=== PATIENT | female | born 1935 | race Caucasian/White ===

== ENCOUNTER 2018-05-15 13:33 | Outpatient (CLI) | payer MEDICARE, BC | END 2018-05-15 13:34 | disposition home or self-care (01) | LOC: BICMAMMO 13:33 | PROVIDERS: ATTEND Family Medicine | DX: Z12.31 Encounter for screening mammogram for malignant neoplasm of breast (principal); Z80.3 Family history of malignant neoplasm of breast; Z85.3 Personal history of malignant neoplasm of breast | CPT/HCPCS: 77063; 77067 ==

== ENCOUNTER 2018-12-23 20:49 | Inpatient (IN) | payer MEDICARE, BC ==
[2018-12-23 21:19] LABS: #Eosinphils 0.3 thou/uL (0.0-0.7); #Lymphocytes 2.7 thou/uL (1.20-3.40); #Monocytes 0.7 thou/uL (0.11-0.59); #Neutrophils 5.2 thou/uL (1.40-6.50); %Basophils 0.4 % (0.0-1.0); %Eosinophils 3.1 % (0.0-10.0); %Lymphocytes 30.5 % (21.0-51.0); %Monocytes 8.2 % (0.0-10.0); %Neutrophils 57.9 % (42.0-75.0); Mean Corpuscular HGB CONC 32.6 g/dL (32.0-36.0); Mean Corpuscular Hemoglobin 31.3 pg (27.0-31.0); Mean Corpuscular Volume 95.9 fL (78.0-98.0); Mean Platelet Volume 7.9 fL (7.4-10.4); Platelet Count 321 thou/uL (130-400); RBC Distribution Width 13.8 % (11.5-14.5); Red Blood Cell (RBC) Count 3.51 mill/uL (4.20-5.40)
[2018-12-23 21:37] LABS: ALT (SGPT) 9 U/L (8-55); AST (SGOT) 13 U/L (5-34); Albumin 4.5 g/dL (3.4-4.8); Alkaline Phosphatase 65 U/L (40-150); Anion Gap 16 mmol/L (10-20); BUN (Urea Nitrogen) 24 mg/dL (9.8-20.1); Bilirubin, Total 0.3 mg/dL (0.2-1.2); Calc. Creatinine Clearance 0 mL/min (70-130); Calcium 9.7 mg/dL (7.8-10.44); Carbon Dioxide 22 mmol/L (23-31); Chloride 105 mmol/L (98-107); Estimated GFR-MDRD 40; Globulin 3.2 g/dL (2.4-3.5); Glucose 106 mg/dL (83-110); Potassium 3.9 mmol/L (3.5-5.1); Protein, Total 7.7 g/dL (6.0-8.3); Sodium 139 mmol/L (136-145)
--- NOTE | 2018-12-23 21:48 | RAD ---
CHEST ONE VIEW: 12/23/18 INDICATION: History of chest pain. COMPARISON: Prior exam dated 07/09/14. FINDINGS: The soft tissue accentuation along the right heart border is stable. Myocardium is stable. Vascular c alcifications of the aortic arch is similar appearing. Eventration of the right hemidiaphragm is stab le. No pleural effusion or pneumothorax is evident. Surgical changes involving the left axillary joni on are stable. IMPRESSION: No acute cardiopulmonary abnormality. Stable chronic findings as above. POS: VANESSA
[2018-12-23] MEDS ORDERED: Aspirin Chewable 81 MG TAB ONE (22:02)
[2018-12-23] MEDS ORDERED: Nitroglycerin 2% Ointment 1 INCH/1 GM Packet ONE (22:02)
[2018-12-24 00:49] LABS: Troponin I 0.011 ng/mL (< 0.028)
[2018-12-24] MEDS ORDERED: Ondansetron ODT 4 MG TAB PO PRN (02:19)
[2018-12-24] MEDS ORDERED: Ondansetron PF 4 MG/2 ML Vial IVP PRN (02:19)
[2018-12-24] MEDS ORDERED: Acetaminophen 325 MG TAB PO PRN (02:19)
[2018-12-24] MEDS ORDERED: Sodium Chloride 0.9% (PF) 10 ML VIAL FS PRN (02:34)
[2018-12-24 02:42] VITALS: BMI 33.7
[2018-12-24] MEDS ORDERED: Pantoprazole 40 MG VIAL IVP SCH (02:45)
[2018-12-24 03:25] LABS: #Basophils 0.1 thou/uL (0.0-0.2); #Eosinphils 0.2 thou/uL (0.0-0.7); #Lymphocytes 2.5 thou/uL (1.20-3.40); #Monocytes 0.5 thou/uL (0.11-0.59); #Neutrophils 3.5 thou/uL (1.40-6.50); %Basophils 1.2 % (0.0-1.0); %Eosinophils 3.2 % (0.0-10.0); %Monocytes 7.9 % (0.0-10.0); %Neutrophils 50.7 % (42.0-75.0); Hemoglobin 9.5 g/dL (12.0-16.0); Mean Corpuscular HGB CONC 32.3 g/dL (32.0-36.0); Mean Corpuscular Hemoglobin 31.6 pg (27.0-31.0); Mean Corpuscular Volume 97.7 fL (78.0-98.0); Platelet Count 260 thou/uL (130-400); White Blood Cell (WBC) Count 6.8 thou/uL (4.8-10.8)
[2018-12-24] MEDS ORDERED: Gabapentin 300 MG CAP PO SCH (03:30)
[2018-12-24] MEDS ORDERED: DULoxetine 30 MG CAP PO SCH (03:30)
[2018-12-24 03:46] LABS: Anion Gap 13 mmol/L (10-20); BUN (Urea Nitrogen) 21 mg/dL (9.8-20.1); Calc. Creatinine Clearance 50 mL/min (70-130); Carbon Dioxide 24 mmol/L (23-31); Chloride 107 mmol/L (98-107); Estimated GFR-MDRD 48; Glucose 107 mg/dL (83-110); Potassium 3.7 mmol/L (3.5-5.1); Sodium 140 mmol/L (136-145)
[2018-12-24 03:51] LABS: Troponin I 0.012 ng/mL (< 0.028)
--- NOTE | 2018-12-24 04:04 | HP ---
PRIMARY CARE PHYSICIAN: Dr. Wells. CHIEF COMPLAINT: Substernal chest pain. HISTORY OF PRESENT ILLNESS: Ms. Buck is a pleasant 82-year-old female with past medical history of hypertension; gastroesophageal reflux disease; and history of breast cancer, status post lumpectomy, chemo, and radiation, she had reported to [facility] for chest pain and nausea that started earlier on today, she states she had some nausea and some dyspnea on exertion yesterday; however, the nausea resolved today. She states this pain is worse after meals and worse with swallowing, she states that she used to take Prilosec in the past, however, was told by her PCP to stop this, she had switched to Zantac and was using this as needed, however, has not taken anything for her GERD in quite some time. She denied any fever or chills. She denied any headache, dizziness, or blurred vision. She had denied any abdominal pain, any weakness, numbness, tingling, or any edema. She was given aspirin and nitroglycerin down in the emergency department, which she had denied any improvement in her symptoms. During her initial workup, serial troponins were found to be negative x2. Chest x-ray showed no acute cardiopulmonary abnormality. Creatinine was slightly elevated at 1.28, which has been noted to be elevated in the past as high as 1.55 back in 2013. Her estimated GFR was 40, which being back at her old records, seems to be about her baseline with CKD, stage 3. EKG showed normal sinus rhythm with a left bundle branch block, she has denied any history of this in the past. She states she had parathyroidectomy in last June, and she states that she thought she got an EKG back then, however, no one mentioned anything about a left bundle branch block to her. It was determined that she would be admitted under observation for further workup and undergo trending of her troponin and rule out cardiac etiology. REVIEW OF SYSTEMS: All other systems reviewed and found to be negative unless mentioned in the HPI. PAST MEDICAL HISTORY: Hypertension; gastroesophageal reflux disease; history of breast cancer, status post lumpectomy, chemo, and radiation; CKD, stage 3; and COPD. PAST SURGICAL HISTORY: Back surgery, ORIF of right humerus, lumpectomy, surgical repair of hernia, parathyroidectomy, appendectomy, and left partial knee replacement. PSYCHIATRIC HISTORY: Denies any previous psychiatric history at this time. SOCIAL HISTORY: She is a former smoker, however, quit about 10 years ago, she denies any alcohol use or any illicit drug use. KNOWN ALLERGIES: None. CURRENT HOME MEDICATIONS: 1. Amlodipine 10 mg p.o. at bedtime. 2. Simvastatin 10 mg p.o. at bedtime. 3. Atenolol 10 mg p.o. q.p.m. 4. Gabapentin 300 mg p.o. b.i.d. 5. Duloxetine 30 mg p.o. b.i.d. 6. Aspirin 81 mg p.o. daily. 7. Hydrocodone/acetaminophen 5/325 mg p.o. q.6 hours as needed for pain. PHYSICAL EXAMINATION: VITAL SIGNS: BP 137/74, pulse 63, respirations 16, temperature 98.3 degrees Fahrenheit, and O2 saturations 94% on room air. GENERAL: The patient is awake, alert, and oriented x3. No acute distress noted. HEENT: Atraumatic, normocephalic. Pupils are round and reactive to light. Extraocular muscles are intact. Moist mucous membranes noted. NECK: No JVD. No bruit. Supple. Normal range of motion. CARDIOVASCULAR: Positive S1 and S2. Regular rate and rhythm. No murmurs or rubs auscultated. RESPIRATORY: Clear to auscultation bilaterally. No wheezes, rales, or rhonchi. ABDOMEN: Soft and nontender. Bowel sounds present. Nondistended. BACK: Nontender. No CVA tenderness. Normal range of motion. MUSCULOSKELETAL: Strength 5+ bilaterally in upper and lower extremities. Moves all extremities equally. No edema noted. NEUROLOGICAL: Cranial nerves 2 through 12 are grossly intact. No focal deficits noted. Gait not assessed. SKIN: Warm, dry, and intact. No rashes. No lesions noted. PSYCHIATRIC: Good mood and affect. LABORATORY DATA: WBC 9.0, RBC 3.51, hemoglobin 11.0, and platelets 321. Sodium 139, potassium 3.9, anion gap 16, BUN 24, creatinine 1.28, estimated GFR 40, and glucose 103. Troponin 0.014 and 0.011. DIAGNOSTIC IMAGING: Chest x-ray showed no acute cardiopulmonary abnormality. EKG showed normal sinus rhythm at a rate of 89. It did show complete left bundle branch block with left axis. ASSESSMENT/PLAN: 1. Substernal chest pain, this is likely secondary to gastroesophageal reflux disease. However, we will rule out cardiac etiology by trending troponins, so far negative x2. We will order stress test and echocardiogram for the morning. Continue on home medications and start IV Protonix 40 mg daily. 2. Gastroesophageal reflux disease. Continue on IV Protonix 40 mg daily. 3. Hypertension. Continue the patient's home regimen. 4. Chronic kidney disease, stage 3, currently stable at this time, recheck BMP in the morning. 5. Chronic obstructive pulmonary disease, currently stable at this time. 6. Deep venous thrombosis and gastrointestinal prophylaxis. 7. Code status, full code. DISPOSITION: Pending further workup and clinical findings. Job ID: [id number]
[2018-12-24] MEDS: HYDROcodone/Acetaminophen 5/325 mg Tablet PO SCH ×4 (07:32→20:06)
[2018-12-24] MEDS ORDERED: Enoxaparin Sodium 30 MG/0.3 ML SYRINGE SC SCH (09:00)
[2018-12-24] MEDS ORDERED: ADENOSINE 60 MG/20 ML VIAL ONE (09:38)
--- NOTE | 2018-12-24 12:29 | PDOC.PN ---
- Subjective Encounter Start Date: 12/24/18 Encounter Start Time: 08:45 Subjective: no current chest pain -: has chest pain and sob x 1 yr with min exertion -: above is progressively getting worse per patient - Objective Resuscitation Status - Order Detail: 12/24/18 02:19 Resuscitation Status Routine Co-Sign Provider: Resuscitation Status: FULL: Full Resuscitation MAR Reviewed: Yes Vital Signs & Weight: Vital Signs (12 hours) Temp Pulse Resp BP BP Pulse Ox 12/24/18 07:10 98 F 70 18 115/73 115/73 98 12/24/18 04:00 97.6 F 73 18 128/60 96 12/24/18 01:15 97.5 F L 78 16 158/74 H 96 Weight Weight 172 lb 9.6 oz I&O: 12/23/18 12/24/18 12/25/18 06:59 06:59 06:59 Intake Total 240 Balance 240 Result Diagrams: 12/24/18 03:17 12/24/18 03:17 Additional Labs: Accuchecks 12/24/18 12/24/18 06:19 02:18 POC Glucose 107 103 Phys Exam - Physical Examination HEENT: PERRLA, moist MMs Neck: no JVD, supple Respiratory: no wheezing, no rales, no rhonchi Cardiovascular: RRR, no significant murmur Gastrointestinal: soft, non-tender, positive bowel sounds Musculoskeletal: no edema, pulses present Neurological: non-focal, moves all 4 limbs Psychiatric: normal affect, A&O x 3 Dx/Plan (1) Chest pain Code(s): R07.9 - CHEST PAIN, UNSPECIFIED Status: Acute Qualifiers: Chest pain type: unspecified Qualified Code(s): R07.9 - Chest pain, unspecified (2) Obesity (BMI 30.0-34.9) Code(s): E66.9 - OBESITY, UNSPECIFIED Status: Chronic (3) Dyslipidemia Code(s): E78.5 - HYPERLIPIDEMIA, UNSPECIFIED Status: Chronic (4) Chronic obstructive lung disease Status: Chronic Qualifiers: COPD type: chronic bronchitis Chronic bronchitis type: unspecified Qualified Code(s): J42 - Unspecified chronic bronchitis (5) Hypertension Code(s): I10 - ESSENTIAL (PRIMARY) HYPERTENSION Status: Chronic Qualifiers: Hypertension type: essential hypertension Qualified Code(s): I10 - Essential (primary) hypertension - Plan progressive worsoning of chest pain and sob on min exertion -: has lbbb which was not seen on prior ekg -: stress test, cardio consult, echo for wall motion -: has h/o snoring but no recorded apnea per family -: will need outpt sleep study * . continue asp, lipitor, norvasc, atenolol, neurontin, cymbalta. Prior h/o 1 of 4 parathyroid gland removed, calcium is normal. Review of Systems - Medications/Allergies Allergies/Adverse Reactions: Allergies Allergy/AdvReac Type Severity Reaction Status Date / Time No Known Allergies Allergy Verified 12/24/18 02:28 Medications: Current Medications Acetaminophen (Tylenol) 650 mg PO Q4H PRN PRN Reason: Headache/Fever/Mild Pain (1-3) Hydrocodone Bitart/Acetaminophen ([place] 5/325) 1 tab PO Q6HR [facility] Last Admin: 12/24/18 07:32 Dose: Not Given Amlodipine Besylate (Norvasc) 10 mg PO HS [facility] Aspirin (Aspirin Chewable) 81 mg PO QAM-[facility] Atenolol (Tenormin) 100 mg PO QPM [facility] Atorvastatin Calcium (Lipitor) 10 mg PO HS [facility] Duloxetine HCl (Cymbalta) 30 mg PO BID [facility] Enoxaparin Sodium (Lovenox) 30 mg SC 0900 [facility] Gabapentin (Neurontin) 300 mg PO BID [facility] Ondansetron HCl (Zofran Odt) 4 mg PO Q6H PRN PRN Reason: Nausea/Vomiting Ondansetron HCl (Zofran) 4 mg IVP Q6H PRN PRN Reason: Nausea/Vomiting Pantoprazole Sodium (Protonix) 40 mg IVP DAILY [facility] Sodium Chloride (Normal Saline Pf) 10 ml FS PRN PRN PRN Reason: RECONSTITUTION
--- NOTE | 2018-12-24 14:32 | NM ---
RADIONUCLIDE STRESS AND REST MYOCARDIAL PERFUSION SCAN WITH CT ATTENUATION CORRECTION AND SPECT IMAGI NG WITH LEFT VENTRICULAR WALL MOTION EVALUATION AND EJECTION FRACTION: HISTORY: Chest pain. FINDINGS: Adenosine protocol. A moderate sized area of markedly diminished radiotracer uptake involving the ant eroseptal wall is present on the stress and rest images without significant reversibility. QGS analysis of gated SPECT images shows global hypokinesis, most pronounced at the septum. Ejection fraction calculated at 37%. IMPRESSION: 1. Area of scar involving the anteroseptal wall with decreased motion. No evidence of ongoing ischem ia. 2. Depressed ejection fraction of 37%. POS: TITO
[2018-12-24] MEDS: Aspirin Chewable 81 MG TAB PO SCH (14:43)
[2018-12-24] MEDS: DULoxetine 30 MG CAP PO SCH ×2 (14:43→20:05)
[2018-12-24] MEDS: Gabapentin 300 MG CAP PO SCH ×2 (14:43→20:07)
[2018-12-24] MEDS: Pantoprazole 40 MG VIAL IVP SCH (14:44)
[2018-12-24] MEDS ORDERED: glipiZIDE 5 MG TAB PO SCH (17:00)
--- NOTE | 2018-12-24 18:22 | CON ---
DATE OF CONSULTATION: 12/24/2018 REASON FOR CONSULTATION: Chest pain. HISTORY OF PRESENT ILLNESS: Ms. Bukc is a very pleasant 82-year-old white female, who comes to the hospital for shortness of breath. She has noticed increased worsening shortness of breath for the last year to the point where she feels weak all the time. She started having worsening of her reflux. She got concerned that this might be related to her heart, so she decided to come in for evaluation. She was initially found to have a new left bundle-branch block. This is compared to 2013 EKG. She was admitted for further evaluation. Troponins were negative. A stress test was performed and it showed reduced EF with possible anterior scar, EF was at 37%. On the echocardiogram, EF was at 30% to 35% with septal hypokinesis and mild aortic regurgitation, so Cardiology has been consulted for all of these. PAST MEDICAL HISTORY: 1. Hypertension. 2. GERD. 3. Breast cancer, status post lumpectomy and chemo and radiation. 4. Chronic kidney disease, stage 3. 5. COPD. 6. Pericardial cyst. PAST SURGICAL HISTORY: 1. Back surgery by Dr. Parra. 2. ORIF of the right humerus. 3. Lumpectomy. 4. Hernia repair. 5. Parathyroidectomy. 6. Appendectomy. 7. Left partial knee replacement. SOCIAL HISTORY: Former smoker, quit about 10 years ago. No alcohol or drugs. ALLERGIES: NO KNOWN DRUG ALLERGIES. OUTPATIENT MEDICATIONS: 1. Amlodipine 10 mg at bedtime. 2. Simvastatin 10 mg at bedtime. 3. Tylenol 100 mg q.p.m. 4. Gabapentin 300 mg p.o. b.i.d. 5. Duloxetine 30 mg b.i.d. 6. Aspirin 81 a day. 7. [place] 5/325 p.r.n. pain. REVIEW OF SYSTEMS: A 12-point review of systems was done and was found to be negative unless stated in the history of present illness. PHYSICAL EXAMINATION: VITAL SIGNS: Temperature 98.0, pulse 92, respiratory rate 18, sat 94% on room air, and blood pressure 131/64. GENERAL: Awake, alert, and oriented x3. No distress. HEENT: Normocephalic and atraumatic. NECK: Supple. LUNGS: Lungs have mild crackles at the bases. CARDIOVASCULAR: S1 and S2. No S3 or S4. There is a grade 2/6 systolic murmur at the right upper sternal border. ABDOMEN: Soft. Positive bowel sounds. EXTREMITIES: No edema. SKIN: Warm and dry. LABORATORY DATA: Laboratory work was reviewed. CBC with a white count of 9, hemoglobin of 11, hematocrit of 33, and platelet count of 321. Chemistry was unremarkable. BUN and creatinine are 21 and 1.09. GFR was 48. Troponin was negative x3. Echocardiogram was reviewed, EF at 30% to 35%, grade 1 diastolic dysfunction, septal hypokinesis, dilated left ventricle and mild AI. Nuclear stress test showed an EF of 37% with anteroseptal scar. ASSESSMENT: 1. New-onset left bundle-branch block. 2. New-onset dilated cardiomyopathy, ejection fraction at 30% to 35%. 3. Hypertension. PLAN: 1. Certainly, we will have to risk stratify with heart catheterization to evaluate for ischemia. We spoke at length with the risks and benefits of the procedure. Risks included, but not limited to stroke, [place], , bleeding, need for blood transfusion, limb loss, organ loss. The patient understands and verbalized understanding of this. We spoke about drug-eluting stent versus bare metal stent. She chooses drug-eluting stent. She is aware that she will not be able to get her back shots for pain control during the years that she is on dual anti-platelet therapy and she is okay to proceed. 2. Further recommendations per results of coronary angiogram. We will plan on doing this early in the morning tomorrow. Job ID: [id number]
[2018-12-24] MEDS ORDERED: Communication Order-Pharmacy FS SCH (19:45)
[2018-12-24] MEDS: Atorvastatin Calcium 10 MG TAB PO SCH (20:08)
[2018-12-24] MEDS ORDERED: Atenolol 50 MG TAB PO SCH (21:00)
[2018-12-24] MEDS ORDERED: Amlodipine 10 MG TAB PO SCH (21:00)
[2018-12-24] MEDS ORDERED: Melatonin 3 MG TAB PO SCH (22:45)
[2018-12-25] MEDS: HYDROcodone/Acetaminophen 5/325 mg Tablet PO SCH ×4 (05:45→22:26)
[2018-12-25] MEDS: Aspirin Chewable 81 MG TAB PO SCH (05:52)
[2018-12-25] MEDS: DULoxetine 30 MG CAP PO SCH ×2 (05:52→19:58)
[2018-12-25] MEDS: Gabapentin 300 MG CAP PO SCH ×2 (05:52→19:58)
[2018-12-25] MEDS: Pantoprazole 40 MG VIAL IVP SCH (05:52)
[2018-12-25] MEDS ORDERED: Sodium Chloride 0.9% 1,000 ML IV SCH ×2 (06:00→08:15)
[2018-12-25] MEDS ORDERED: Fentanyl 100 MCG/2 ML VIAL ONE (07:22)
[2018-12-25] MEDS ORDERED: Midazolam HCl 2 mg/2 ml Vial ONE (07:22)
[2018-12-25] MEDS ORDERED: Heparin 10,000 UNITS/1 ML VIAL ONE (07:48)
[2018-12-25] MEDS ORDERED: Nitroglycerin 100MG/250ML BOT 250 ML ONE (07:51)
[2018-12-25] MEDS ORDERED: TICAGRELOR 90 MG TABLET ONE (07:51)
[2018-12-25] MEDS ORDERED: Nitroglycerin 0.4 MG TAB (25 Tab Bottle) SL PRN (08:12)
[2018-12-25] MEDS ORDERED: Morphine 2 MG/ML SYRINGE SLOW IVP PRN (08:28)
[2018-12-25] MEDS ORDERED: Iopamidol 370 76% 50 ML VIAL FS ONE (09:42)
[2018-12-25] MEDS ORDERED: Iopamidol 370 76% 100 ML VIAL ONE (09:42)
--- NOTE | 2018-12-25 09:53 | PDOC.PN ---
- Subjective Encounter Start Date: 12/25/18 Encounter Start Time: 14:45 Subjective: had cath this am -: no sob or chest pain -: occasional flushing with bradycardic episodes post cath - Objective Resuscitation Status - Order Detail: 12/24/18 02:19 Resuscitation Status Routine Co-Sign Provider: Resuscitation Status: FULL: Full Resuscitation MAR Reviewed: Yes Vital Signs & Weight: Vital Signs (12 hours) Temp Pulse Resp BP Pulse Ox 12/25/18 03:26 98.0 F 70 16 123/58 L 95 Weight Weight 172 lb 9.6 oz I&O: 12/24/18 12/25/18 12/26/18 06:59 06:59 06:59 Intake Total 240 750 Output Total 500 Balance 240 250 Result Diagrams: 12/24/18 03:17 12/24/18 03:17 Additional Labs: Accuchecks 12/25/18 12/24/18 12/24/18 05:37 20:27 16:55 POC Glucose 125 H 181 H 108 12/24/18 12:35 POC Glucose 178 H Phys Exam - Physical Examination HEENT: PERRLA, moist MMs Neck: no JVD, supple Respiratory: no wheezing, no rales Cardiovascular: RRR, no significant murmur Gastrointestinal: soft, non-tender, positive bowel sounds Musculoskeletal: no edema, pulses present Neurological: non-focal, moves all 4 limbs Psychiatric: normal affect, A&O x 3 Dx/Plan (1) CAD (coronary artery disease) Code(s): I25.10 - ATHSCL HEART DISEASE OF [place] CORONARY ARTERY W/O ANG PCTRS Status: Acute Qualifiers: Coronary Disease-Associated Artery/Lesion type: [place] artery [place] vs. transplanted heart: [place] heart Associated angina: with stable angina Qualified Code(s): I25.118 - Atherosclerotic heart disease of [place] coronary artery with other forms of angina pectoris Comment: s/p stent to distal lad (2) CHF (congestive heart failure), NYHA class II Code(s): I50.9 - HEART FAILURE, UNSPECIFIED Status: Acute Qualifiers: Congestive heart failure type: systolic Congestive heart failure chronicity : acute Qualified Code(s): I50.21 - Acute systolic (congestive) heart failure Comment: ef of 35% (3) Chest pain Code(s): R07.9 - CHEST PAIN, UNSPECIFIED Status: Resolved Qualifiers: Chest pain type: chest pain due to myocardial ischemia (4) Obesity (BMI 30.0-34.9) Code(s): E66.9 - OBESITY, UNSPECIFIED Status: Chronic (5) Dyslipidemia Code(s): E78.5 - HYPERLIPIDEMIA, UNSPECIFIED Status: Chronic (6) Chronic obstructive lung disease Status: Chronic Qualifiers: COPD type: chronic bronchitis Chronic bronchitis type: unspecified Qualified Code(s): J42 - Unspecified chronic bronchitis (7) Hypertension Code(s): I10 - ESSENTIAL (PRIMARY) HYPERTENSION Status: Chronic Qualifiers: Hypertension type: essential hypertension Qualified Code(s): I10 - Essential (primary) hypertension - Plan had stent to distal lad this am -: is on asp, brillinta, lipitor, coreg and lisinopril -: continue cymbalta, neurontin, protonix -: will add oral iron, will likely need outpt colonoscopy -: dc plan per cardio adv, life vest prior to dc * . Review of Systems - Medications/Allergies Allergies/Adverse Reactions: Allergies Allergy/AdvReac Type Severity Reaction Status Date / Time No Known Allergies Allergy Verified 12/24/18 02:28 Medications: Current Medications Acetaminophen (Tylenol) 650 mg PO Q4H PRN PRN Reason: Headache/Fever/Mild Pain (1-3) Hydrocodone Bitart/Acetaminophen ([place] 5/325) 1 tab PO Q6HR [facility] Last Admin: 12/25/18 05:45 Dose: Not Given Aspirin (Aspirin Chewable) 81 mg PO QAM-[facility] Last Admin: 12/25/18 05:52 Dose: 81 mg Atorvastatin Calcium (Lipitor) 10 mg PO HS [facility] Last Admin: 12/24/18 20:08 Dose: 10 mg Carvedilol (Coreg) 12.5 mg PO BID-[facility] Duloxetine HCl (Cymbalta) 30 mg PO BID [facility] Last Admin: 12/25/18 05:52 Dose: 30 mg Gabapentin (Neurontin) 300 mg PO BID [facility] Last Admin: 12/25/18 05:52 Dose: 300 mg Sodium Chloride (Normal Saline 0.9%) 1,000 mls @ 50 mls/hr IV .Q20H [facility] Stop: 12/25/18 13:15 Lisinopril (Zestril) 2.5 mg PO DAILY [facility] Morphine Sulfate (Morphine) 2 mg SLOW IVP Q4H PRN PRN Reason: MOD CHEST PAIN Nitroglycerin (Nitrostat) 0.4 mg SL Q5MIN PRN PRN Reason: Chest Pain Ondansetron HCl (Zofran Odt) 4 mg PO Q6H PRN PRN Reason: Nausea/Vomiting Ondansetron HCl (Zofran) 4 mg IVP Q6H PRN PRN Reason: Nausea/Vomiting Pantoprazole Sodium (Protonix) 40 mg PO DAILY [facility] Last Admin: 12/25/18 09:46 Dose: Not Given Sodium Chloride (Normal Saline Pf) 10 ml FS PRN PRN PRN Reason: RECONSTITUTION Ticagrelor (Brilinta) 90 mg PO BID [facility]
[2018-12-25] MEDS: TICAGRELOR 90 MG TABLET PO SCH ×2 (12:47→19:58)
[2018-12-25] MEDS: Lisinopril 2.5 MG TAB PO SCH (15:07)
[2018-12-25] MEDS ORDERED: Carvedilol 6.25 MG TAB PO SCH (17:00)
[2018-12-25] MEDS: Carvedilol 6.25 MG TAB PO SCH (18:09)
[2018-12-25] MEDS: Atorvastatin Calcium 10 MG TAB PO SCH (19:58)
[2018-12-25] MEDS ORDERED: Melatonin 3 MG TAB PO SCH (21:00)
[2018-12-26] MEDS: Melatonin 3 MG TAB PO PRN ×2 (02:01→20:57)
[2018-12-26 05:09] LABS: #Eosinphils 0.2 thou/uL (0.0-0.7); #Lymphocytes 1.5 thou/uL (1.20-3.40); #Monocytes 0.5 thou/uL (0.11-0.59); %Eosinophils 3.8 % (0.0-10.0); %Lymphocytes 23.4 % (21.0-51.0); %Monocytes 7.7 % (0.0-10.0); %Neutrophils 65.1 % (42.0-75.0); Hemoglobin 8.4 g/dL (12.0-16.0); Mean Corpuscular HGB CONC 32.3 g/dL (32.0-36.0); Mean Corpuscular Hemoglobin 31.4 pg (27.0-31.0); Mean Corpuscular Volume 97.2 fL (78.0-98.0); Mean Platelet Volume 8.3 fL (7.4-10.4); Platelet Count 237 thou/uL (130-400); RBC Distribution Width 14.1 % (11.5-14.5); Red Blood Cell (RBC) Count 2.68 mill/uL (4.20-5.40); White Blood Cell (WBC) Count 6.2 thou/uL (4.8-10.8)
[2018-12-26] MEDS: HYDROcodone/Acetaminophen 5/325 mg Tablet PO SCH ×3 (05:25→18:19)
[2018-12-26 05:37] LABS: ALT (SGPT) 9 U/L (8-55); AST (SGOT) 12 U/L (5-34); Albumin 3.4 g/dL (3.4-4.8); Alkaline Phosphatase 45 U/L (40-150); Anion Gap 12 mmol/L (10-20); BUN (Urea Nitrogen) 17 mg/dL (9.8-20.1); Bilirubin, Total 0.4 mg/dL (0.2-1.2); Calc. Creatinine Clearance 52 mL/min (70-130); Calcium 8.9 mg/dL (7.8-10.44); Carbon Dioxide 25 mmol/L (23-31); Chloride 108 mmol/L (98-107); Estimated GFR-MDRD 51; Globulin 2.2 g/dL (2.4-3.5); Glucose 113 mg/dL (83-110); Potassium 3.7 mmol/L (3.5-5.1); Protein, Total 5.6 g/dL (6.0-8.3); Sodium 141 mmol/L (136-145)
--- NOTE | 2018-12-26 07:02 | EKG ---
Test Reason : POST STENT Blood Pressure : / mmHG Vent. Rate : 058 BPM Atrial Rate : 058 BPM P-R Int : 164 ms QRS Dur : 158 ms QT Int : 492 ms P-R-T Axes : 053 107 -04 degrees QTc Int : 482 ms Sinus bradycardia with Premature atrial complexes Rightward axis Left bundle branch block Abnormal ECG When compared with ECG of 23-DEC-2018 20:57, (Unconfirmed) Premature atrial complexes are now Present Vent. rate has decreased BY 31 BPM QRS axis Shifted right Nonspecific T wave abnormality now evident in Inferior leads Confirmed by KITA BORDEN ([id number]) on 12/26/2018 7:01:48 AM Referred By: DIEGO Confirmed By:KITA BORDEN
[2018-12-26] MEDS: Lisinopril 2.5 MG TAB PO SCH (09:13)
[2018-12-26] MEDS: Aspirin Chewable 81 MG TAB PO SCH (09:14)
[2018-12-26] MEDS: Carvedilol 6.25 MG TAB PO SCH ×2 (09:14→17:19)
[2018-12-26] MEDS: Gabapentin 300 MG CAP PO SCH ×2 (09:14→20:57)
[2018-12-26] MEDS: TICAGRELOR 90 MG TABLET PO SCH ×2 (09:15→20:57)
[2018-12-26] MEDS: DULoxetine 30 MG CAP PO SCH ×2 (09:15→20:57)
[2018-12-26] MEDS ORDERED: Sodium Chloride 0.9% 10 ML ONE (09:20)
[2018-12-26] MEDS ORDERED: Docusate 100 MG CAP PO PRN (10:24)
[2018-12-26] MEDS ORDERED: Polyethylene Glycol 3350 17 GM Packet PO PRN (10:24)
--- NOTE | 2018-12-26 14:04 | PDOC.PN ---
- Subjective Encounter Start Date: 12/26/18 Encounter Start Time: 08:20 Subjective: no sob or chest pain -: had an episode of diaphoresis and woke her up at midnight -: is a bit concerned due to 3 episodes since hosp - Objective Resuscitation Status - Order Detail: 12/24/18 02:19 Resuscitation Status Routine Co-Sign Provider: Resuscitation Status: FULL: Full Resuscitation Vital Signs & Weight: Vital Signs (12 hours) Temp Pulse Pulse Pulse Resp BP BP 12/26/18 10:05 81 83 132/60 139/65 12/26/18 08:00 98.0 F 73 18 12/26/18 05:23 12/26/18 04:00 97.9 F 73 18 BP Pulse Ox Pulse Ox Pulse Ox 12/26/18 10:05 97 96 12/26/18 08:00 118/68 98 12/26/18 05:23 93 L 12/26/18 04:00 118/56 L 92 L Weight Weight 172 lb 9.6 oz I&O: 12/25/18 12/26/18 12/27/18 06:59 06:59 06:59 Intake Total 750 820 Output Total 500 1000 Balance 250 -180 Result Diagrams: 12/26/18 03:57 12/26/18 03:56 Additional Labs: Accuchecks 12/26/18 12/26/18 12/25/18 11:10 05:48 20:41 POC Glucose 147 H 132 H 192 H 12/25/18 16:44 POC Glucose 121 H Phys Exam - Physical Examination HEENT: PERRLA, moist MMs Neck: no JVD, supple Respiratory: no wheezing, no rales Cardiovascular: RRR, no significant murmur Gastrointestinal: soft, non-tender, positive bowel sounds Musculoskeletal: no edema, pulses present Neurological: non-focal, moves all 4 limbs Psychiatric: normal affect, A&O x 3 Dx/Plan (1) CAD (coronary artery disease) Code(s): I25.10 - ATHSCL HEART DISEASE OF [place] CORONARY ARTERY W/O ANG PCTRS Status: Acute Qualifiers: Coronary Disease-Associated Artery/Lesion type: [place] artery [place] vs. transplanted heart: [place] heart Associated angina: with stable angina Qualified Code(s): I25.118 - Atherosclerotic heart disease of [place] coronary artery with other forms of angina pectoris Comment: s/p stent to distal lad (2) CHF (congestive heart failure), NYHA class II Code(s): I50.9 - HEART FAILURE, UNSPECIFIED Status: Acute Qualifiers: Congestive heart failure type: systolic Congestive heart failure chronicity : acute Qualified Code(s): I50.21 - Acute systolic (congestive) heart failure Comment: ef of 35% (3) Chest pain Code(s): R07.9 - CHEST PAIN, UNSPECIFIED Status: Resolved Qualifiers: Chest pain type: chest pain due to myocardial ischemia (4) Obesity (BMI 30.0-34.9) Code(s): E66.9 - OBESITY, UNSPECIFIED Status: Chronic (5) Dyslipidemia Code(s): E78.5 - HYPERLIPIDEMIA, UNSPECIFIED Status: Chronic (6) Chronic obstructive lung disease Status: Chronic Qualifiers: COPD type: chronic bronchitis Chronic bronchitis type: unspecified Qualified Code(s): J42 - Unspecified chronic bronchitis (7) Hypertension Code(s): I10 - ESSENTIAL (PRIMARY) HYPERTENSION Status: Chronic Qualifiers: Hypertension type: essential hypertension Qualified Code(s): I10 - Essential (primary) hypertension - Plan had 3 sec pause with hr down to 30 last night -: await cardiology input -: is on asp, brilinta, lipitor, coreg, lisinopril -: to mobilize in hallway -: awaiting life vest * . Review of Systems - Medications/Allergies Allergies/Adverse Reactions: Allergies Allergy/AdvReac Type Severity Reaction Status Date / Time No Known Allergies Allergy Verified 12/24/18 02:28 Medications: Current Medications Acetaminophen (Tylenol) 650 mg PO Q4H PRN PRN Reason: Headache/Fever/Mild Pain (1-3) Hydrocodone Bitart/Acetaminophen ([place] 5/325) 1 tab PO Q6HR [facility] Last Admin: 12/26/18 13:13 Dose: Not Given Aspirin (Aspirin Chewable) 81 mg PO QAM-[facility] Last Admin: 12/26/18 09:14 Dose: 81 mg Atorvastatin Calcium (Lipitor) 10 mg PO [facility] Last Admin: 12/25/18 19:58 Dose: 10 mg Carvedilol (Coreg) 6.25 mg PO BID-[facility] Last Admin: 12/26/18 09:14 Dose: 6.25 mg Docusate Sodium (Colace) 100 mg PO BID PRN PRN Reason: Constipation Duloxetine HCl (Cymbalta) 30 mg PO BID [facility] Last Admin: 12/26/18 09:15 Dose: 30 mg Gabapentin (Neurontin) 300 mg PO BID [facility] Last Admin: 12/26/18 09:14 Dose: 300 mg Lisinopril (Zestril) 2.5 mg PO DAILY [facility] Last Admin: 12/26/18 09:13 Dose: 2.5 mg Melatonin (Melatonin) 9 mg PO HS PRN PRN Reason: Insomnia Last Admin: 12/26/18 02:01 Dose: 9 mg Morphine Sulfate (Morphine) 2 mg SLOW IVP Q4H PRN PRN Reason: MOD CHEST PAIN Nitroglycerin (Nitrostat) 0.4 mg SL Q5MIN PRN PRN Reason: Chest Pain Ondansetron HCl (Zofran Odt) 4 mg PO Q6H PRN PRN Reason: Nausea/Vomiting Ondansetron HCl (Zofran) 4 mg IVP Q6H PRN PRN Reason: Nausea/Vomiting Pantoprazole Sodium (Protonix) 40 mg PO DAILY [facility] Last Admin: 12/26/18 09:14 Dose: 40 mg Polyethylene Glycol (Miralax) 17 gm PO DAILY PRN PRN Reason: Constipation Sodium Chloride (Normal Saline Pf) 10 ml FS PRN PRN PRN Reason: RECONSTITUTION Ticagrelor (Brilinta) 90 mg PO BID [facility] Last Admin: 12/26/18 09:15 Dose: 90 mg
--- NOTE | 2018-12-26 17:02 | EKG ---
Test Reason : Blood Pressure : / mmHG Vent. Rate : 066 BPM Atrial Rate : 066 BPM P-R Int : 170 ms QRS Dur : 158 ms QT Int : 474 ms P-R-T Axes : 042 041 040 degrees QTc Int : 496 ms Normal sinus rhythm Left bundle branch block Abnormal ECG When compared with ECG of 25-DEC-2018 08:52, Premature atrial complexes are no longer Present QRS axis Shifted left Confirmed by KITA BORDEN ([id number]) on 12/26/2018 5:02:05 PM Referred By: DIEGO Confirmed By:KITA BORDEN
--- NOTE | 2018-12-26 17:11 | PDOC.CTH ---
Cardiology Progress Note - Subjective She has had several episodes of braycardia down to the 30's. She received one dose of coreg at 6.25 mg this morning nothing since. - Objective Vital Signs Temp Pulse Pulse Pulse Resp BP BP 12/26/18 12:35 98.7 F 98 18 12/26/18 10:05 81 83 132/60 139/65 12/26/18 08:00 98.0 F 73 18 12/26/18 05:23 BP BP Pulse Ox Pulse Ox Pulse Ox 12/26/18 12:35 106/59 L 96 12/26/18 10:05 97 96 12/26/18 08:00 118/68 98 12/26/18 05:23 93 L Weight 172 lb 9.6 oz 12/25/18 12/26/18 12/27/18 06:59 06:59 06:59 Intake Total 750 820 Output Total 500 1000 Balance 250 -180 - Physical Examination General/Neuro: alert & oriented x3, NAD Neck: no JVD present Lungs: CTA, unlabored respirations Heart: RRR Abdomen: NT/ND Extremities: + edema B (1+) - Telemetry Telemetry Rhythm: NSR, S Meredith - Labs Result Diagrams: 12/26/18 03:57 12/26/18 03:56 Troponin/CKMB Troponin I 0.012 ng/mL (< 0.028) 12/24/18 03:17 - Assessment/Plan 1. New onset CM EF at 30-35% 2. New onset LBBB 3. S Bradycardia 4. CAD s/p PCI to mid distal LAD NICOLE. PLAN: - Very symptomatic with her episodes of bradycardia. Last one this afternoon. - Continue to monitor under tele and off BB or any AV agnes blocking agents. - If she continues to recur with meredith after 48 to 72 hrs of holding BB's she will need a PPM.
[2018-12-26] MEDS: Atorvastatin Calcium 10 MG TAB PO SCH (20:57)
[2018-12-27] MEDS: HYDROcodone/Acetaminophen 5/325 mg Tablet PO SCH ×4 (00:11→18:13)
[2018-12-27] MEDS: DULoxetine 30 MG CAP PO SCH ×2 (09:01→20:52)
[2018-12-27] MEDS: Gabapentin 300 MG CAP PO SCH ×2 (09:01→20:52)
[2018-12-27] MEDS: Aspirin Chewable 81 MG TAB PO SCH (09:01)
[2018-12-27] MEDS: Lisinopril 2.5 MG TAB PO SCH (09:01)
[2018-12-27] MEDS: TICAGRELOR 90 MG TABLET PO SCH ×2 (09:01→20:52)
--- NOTE | 2018-12-27 11:08 | PDOC.PN ---
- Subjective Encounter Start Date: 12/27/18 Encounter Start Time: 08:45 Subjective: has had another episode last night and early this am of diaphoresis -: overall feels better than day before -: is amb in room, no sob or palp or chest pain - Objective Resuscitation Status - Order Detail: 12/24/18 02:19 Resuscitation Status Routine Co-Sign Provider: Resuscitation Status: FULL: Full Resuscitation MAR Reviewed: Yes Vital Signs & Weight: Vital Signs (12 hours) Temp Pulse Resp BP Pulse Ox 12/27/18 08:55 97.8 F 90 16 135/88 96 12/27/18 04:00 98.1 F 77 18 129/57 L 94 L Weight Weight 172 lb 9.6 oz I&O: 12/26/18 12/27/18 12/28/18 06:59 06:59 06:59 Intake Total 820 1280 Output Total 1000 Balance -180 1280 Result Diagrams: 12/26/18 03:57 12/26/18 03:56 Additional Labs: Accuchecks 12/27/18 12/26/18 12/26/18 05:28 20:34 16:53 POC Glucose 135 H 161 H 133 H 12/26/18 11:10 POC Glucose 147 H Phys Exam - Physical Examination HEENT: PERRLA, moist MMs Neck: no JVD, supple Respiratory: no wheezing, no rales Cardiovascular: RRR, no significant murmur Gastrointestinal: soft, non-tender, positive bowel sounds Musculoskeletal: no edema, pulses present Neurological: non-focal, moves all 4 limbs Psychiatric: normal affect, A&O x 3 Dx/Plan (1) CAD (coronary artery disease) Code(s): I25.10 - ATHSCL HEART DISEASE OF [place] CORONARY ARTERY W/O ANG PCTRS Status: Acute Qualifiers: Coronary Disease-Associated Artery/Lesion type: [place] artery [place] vs. transplanted heart: [place] heart Associated angina: with stable angina Qualified Code(s): I25.118 - Atherosclerotic heart disease of [place] coronary artery with other forms of angina pectoris Comment: s/p stent to distal lad (2) CHF (congestive heart failure), NYHA class II Code(s): I50.9 - HEART FAILURE, UNSPECIFIED Status: Acute Qualifiers: Congestive heart failure type: systolic Congestive heart failure chronicity : acute Qualified Code(s): I50.21 - Acute systolic (congestive) heart failure Comment: ef of 35% (3) Chest pain Code(s): R07.9 - CHEST PAIN, UNSPECIFIED Status: Resolved Qualifiers: Chest pain type: chest pain due to myocardial ischemia (4) Obesity (BMI 30.0-34.9) Code(s): E66.9 - OBESITY, UNSPECIFIED Status: Chronic (5) Dyslipidemia Code(s): E78.5 - HYPERLIPIDEMIA, UNSPECIFIED Status: Chronic (6) Chronic obstructive lung disease Status: Chronic Qualifiers: COPD type: chronic bronchitis Chronic bronchitis type: unspecified Qualified Code(s): J42 - Unspecified chronic bronchitis (7) Hypertension Code(s): I10 - ESSENTIAL (PRIMARY) HYPERTENSION Status: Chronic Qualifiers: Hypertension type: essential hypertension Qualified Code(s): I10 - Essential (primary) hypertension - Plan episodes of bradycardia and pausing continue intermittently with pt symptom -: overall she feels better this am -: continue asp, lipitor, brillinta, increase lisinopril to 10mg daily -: off BB, was on atenolol for a long time prior to hospitalization -: hemostable, has lifevest on her now * . Review of Systems - Medications/Allergies Allergies/Adverse Reactions: Allergies Allergy/AdvReac Type Severity Reaction Status Date / Time No Known Allergies Allergy Verified 12/24/18 02:28 Medications: Current Medications Acetaminophen (Tylenol) 650 mg PO Q4H PRN PRN Reason: Headache/Fever/Mild Pain (1-3) Hydrocodone Bitart/Acetaminophen ([place] 5/325) 1 tab PO Q6HR [facility] Last Admin: 12/27/18 07:00 Dose: Not Given Aspirin (Aspirin Chewable) 81 mg PO QAM-[facility] Last Admin: 12/27/18 09:01 Dose: 81 mg Atorvastatin Calcium (Lipitor) 10 mg PO HS [facility] Last Admin: 12/26/18 20:57 Dose: 10 mg Docusate Sodium (Colace) 100 mg PO BID PRN PRN Reason: Constipation Duloxetine HCl (Cymbalta) 30 mg PO BID [facility] Last Admin: 12/27/18 09:01 Dose: 30 mg Gabapentin (Neurontin) 300 mg PO BID [facility] Last Admin: 12/27/18 09:01 Dose: 300 mg Lisinopril (Zestril) 2.5 mg PO DAILY [facility] Last Admin: 12/27/18 09:01 Dose: 2.5 mg Melatonin (Melatonin) 9 mg PO HS PRN PRN Reason: Insomnia Last Admin: 12/26/18 20:57 Dose: 9 mg Morphine Sulfate (Morphine) 2 mg SLOW IVP Q4H PRN PRN Reason: MOD CHEST PAIN Nitroglycerin (Nitrostat) 0.4 mg SL Q5MIN PRN PRN Reason: Chest Pain Ondansetron HCl (Zofran Odt) 4 mg PO Q6H PRN PRN Reason: Nausea/Vomiting Ondansetron HCl (Zofran) 4 mg IVP Q6H PRN PRN Reason: Nausea/Vomiting Pantoprazole Sodium (Protonix) 40 mg PO DAILY [facility] Last Admin: 12/27/18 09:01 Dose: 40 mg Polyethylene Glycol (Miralax) 17 gm PO DAILY PRN PRN Reason: Constipation Sodium Chloride (Normal Saline Pf) 10 ml FS PRN PRN PRN Reason: RECONSTITUTION Ticagrelor (Brilinta) 90 mg PO BID [facility] Last Admin: 12/27/18 09:01 Dose: 90 mg
--- NOTE | 2018-12-27 17:34 | EKG ---
Test Reason : Blood Pressure : / mmHG Vent. Rate : 089 BPM Atrial Rate : 089 BPM P-R Int : 170 ms QRS Dur : 156 ms QT Int : 426 ms P-R-T Axes : 015 -35 058 degrees QTc Int : 518 ms Normal sinus rhythm Left axis deviation Left bundle branch block Abnormal ECG Confirmed by TORIE DIOP, FAUZIA Dowell ([id number]), newspaper or periodical editor NNEKA MALDONADO ([id number]) on 12/27/2018 5:34:16 PM Referred By: Confirmed By:FAUZIA VOGT MD
--- NOTE | 2018-12-27 18:46 | PDOC.CTH ---
Cardiology Progress Note - Subjective She is doing well. No chest pain, syncope, presyncope. - Objective Vital Signs Temp Pulse Pulse Pulse Resp BP BP 12/27/18 16:15 98 F 73 16 12/27/18 12:40 97.9 F 96 16 12/27/18 12:19 94 80 134/68 124/58 L 12/27/18 08:55 97.8 F 90 16 BP BP Pulse Ox Pulse Ox Pulse Ox 12/27/18 16:15 132/61 97 12/27/18 12:40 130/67 97 12/27/18 12:19 96 96 12/27/18 08:55 135/88 96 Weight 173 lb 12/26/18 12/27/18 12/28/18 06:59 06:59 06:59 Intake Total 820 1280 887 Output Total 1000 1100 Balance -180 1280 -213 - Physical Examination General/Neuro: alert & oriented x3, NAD Neck: no JVD present Lungs: CTA, unlabored respirations Heart: RRR Abdomen: NT/ND Extremities: other: (no edema.) - Telemetry Telemetry Rhythm: S tach, NSR - Labs Result Diagrams: 12/26/18 03:57 12/26/18 03:56 Troponin/CKMB Troponin I 0.012 ng/mL (< 0.028) 12/24/18 03:17 - Assessment/Plan 1. New onset CM EF at 30-35% 2. New onset LBBB 3. S Bradycardia 4. CAD s/p PCI to mid distal LAD NICOLE. PLAN: - Very symptomatic with her episodes of bradycardia. Last one yesterday. - Continue to monitor under tele and off BB or any AV agnes blocking agents. - She is having tachycardia now whenever she moves around. 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 Will monitor for one more dsay. If tomorrow she continues to have tahcycardic episodes will restart coreg at very low dose and will ask EP to see for consideration of a Bi V device.
[2018-12-27] MEDS: Atorvastatin Calcium 10 MG TAB PO SCH (20:52)
[2018-12-27] MEDS: Melatonin 3 MG TAB PO PRN (22:17)
[2018-12-28] MEDS: HYDROcodone/Acetaminophen 5/325 mg Tablet PO SCH ×3 (00:55→12:24)
[2018-12-28 07:06] LABS: #Eosinphils 0.2 thou/uL (0.0-0.7); #Lymphocytes 1.3 thou/uL (1.20-3.40); #Monocytes 0.4 thou/uL (0.11-0.59); #Neutrophils 3.6 thou/uL (1.40-6.50); %Basophils 0.1 % (0.0-1.0); %Lymphocytes 23.5 % (21.0-51.0); %Monocytes 7.7 % (0.0-10.0); %Neutrophils 64.7 % (42.0-75.0); Hemoglobin 8.6 g/dL (12.0-16.0); Mean Corpuscular HGB CONC 31.9 g/dL (32.0-36.0); Mean Corpuscular Hemoglobin 30.9 pg (27.0-31.0); Mean Platelet Volume 8.3 fL (7.4-10.4); Platelet Count 273 thou/uL (130-400); RBC Distribution Width 13.9 % (11.5-14.5); Red Blood Cell (RBC) Count 2.78 mill/uL (4.20-5.40); White Blood Cell (WBC) Count 5.6 thou/uL (4.8-10.8)
[2018-12-28 07:22] LABS: Anion Gap 12 mmol/L (10-20); BUN (Urea Nitrogen) 18 mg/dL (9.8-20.1); Calc. Creatinine Clearance 55 mL/min (70-130); Carbon Dioxide 25 mmol/L (23-31); Chloride 108 mmol/L (98-107); Estimated GFR-MDRD 54; Glucose 134 mg/dL (83-110); Iron 28 ug/dL (50-170); Iron Binding Capacity, Total 368 mcg/dL (265-497); Potassium 4.1 mmol/L (3.5-5.1); Sodium 141 mmol/L (136-145)
[2018-12-28 07:52] LABS: Folate (Folic Acid) 10.8 ng/mL (7.0-31.4)
[2018-12-28] MEDS: Aspirin Chewable 81 MG TAB PO SCH (08:50)
[2018-12-28] MEDS: Gabapentin 300 MG CAP PO SCH (08:51)
[2018-12-28] MEDS: DULoxetine 30 MG CAP PO SCH (08:51)
[2018-12-28] MEDS: TICAGRELOR 90 MG TABLET PO SCH (08:53)
[2018-12-28] MEDS ORDERED: Lisinopril 10 MG TAB PO SCH (09:00)
--- NOTE | 2018-12-28 10:01 | PDOC.PN ---
- Subjective Encounter Start Date: 12/28/18 Encounter Start Time: 09:15 Subjective: slept well last night with no waking up spells -: no sob, is getting a repeat echo now - Objective Resuscitation Status - Order Detail: 12/24/18 02:19 Resuscitation Status Routine Co-Sign Provider: Resuscitation Status: FULL: Full Resuscitation MAR Reviewed: Yes Vital Signs & Weight: Vital Signs (12 hours) Temp Pulse Resp BP BP Pulse Ox 12/28/18 07:50 97.9 F 83 18 120/58 L 97 12/28/18 04:00 97.6 F 82 18 132/60 95 12/27/18 23:52 97.9 F 80 18 133/60 95 Weight Weight 173 lb I&O: 12/27/18 12/28/18 12/29/18 06:59 06:59 06:59 Intake Total 1280 1087 Output Total 1400 Balance 1280 -313 Result Diagrams: 12/28/18 06:56 12/28/18 06:56 Additional Labs: Accuchecks 12/28/18 12/27/18 12/27/18 05:53 20:49 17:06 POC Glucose 148 H 151 H 118 H 12/27/18 11:09 POC Glucose 152 H Phys Exam - Physical Examination HEENT: PERRLA, moist MMs Neck: no JVD, supple Respiratory: no wheezing, no rales Cardiovascular: RRR, no significant murmur Gastrointestinal: soft, non-tender, positive bowel sounds Musculoskeletal: no edema, pulses present Neurological: non-focal, moves all 4 limbs Psychiatric: normal affect, A&O x 3 Dx/Plan (1) CAD (coronary artery disease) Code(s): I25.10 - ATHSCL HEART DISEASE OF [place] CORONARY ARTERY W/O ANG PCTRS Status: Acute Qualifiers: Coronary Disease-Associated Artery/Lesion type: [place] artery [place] vs. transplanted heart: [place] heart Associated angina: with stable angina Qualified Code(s): I25.118 - Atherosclerotic heart disease of [place] coronary artery with other forms of angina pectoris Comment: s/p stent to mid and distal lad (2) CHF (congestive heart failure), NYHA class II Code(s): I50.9 - HEART FAILURE, UNSPECIFIED Status: Acute Qualifiers: Congestive heart failure type: systolic Congestive heart failure chronicity : acute Qualified Code(s): I50.21 - Acute systolic (congestive) heart failure Comment: ef of 35% (3) Chest pain Code(s): R07.9 - CHEST PAIN, UNSPECIFIED Status: Resolved Qualifiers: Chest pain type: chest pain due to myocardial ischemia (4) Obesity (BMI 30.0-34.9) Code(s): E66.9 - OBESITY, UNSPECIFIED Status: Chronic (5) Dyslipidemia Code(s): E78.5 - HYPERLIPIDEMIA, UNSPECIFIED Status: Chronic (6) Chronic obstructive lung disease Status: Chronic Qualifiers: COPD type: chronic bronchitis Chronic bronchitis type: unspecified Qualified Code(s): J42 - Unspecified chronic bronchitis (7) Hypertension Code(s): I10 - ESSENTIAL (PRIMARY) HYPERTENSION Status: Chronic Qualifiers: Hypertension type: essential hypertension Qualified Code(s): I10 - Essential (primary) hypertension - Plan no bradycardic episodes last 24hrs -: to ambulate as tolerated in hallway -: is on asp, brilinta, lisinopril, lipitor -: add oral iron, will need GI eval due to iron def anemia, stool occ pending -: hemostable * . Review of Systems - Medications/Allergies Allergies/Adverse Reactions: Allergies Allergy/AdvReac Type Severity Reaction Status Date / Time No Known Allergies Allergy Verified 12/24/18 02:28 Medications: Current Medications Acetaminophen (Tylenol) 650 mg PO Q4H PRN PRN Reason: Headache/Fever/Mild Pain (1-3) Hydrocodone Bitart/Acetaminophen ([place] 5/325) 1 tab PO Q6HR [facility] Last Admin: 12/28/18 05:28 Dose: Not Given Aspirin (Aspirin Chewable) 81 mg PO QAM-[facility] Last Admin: 12/28/18 08:50 Dose: 81 mg Atorvastatin Calcium (Lipitor) 10 mg PO HS [facility] Last Admin: 12/27/18 20:52 Dose: 10 mg Docusate Sodium (Colace) 100 mg PO BID PRN PRN Reason: Constipation Last Admin: 12/27/18 22:20 Dose: 100 mg Duloxetine HCl (Cymbalta) 30 mg PO BID [facility] Last Admin: 12/28/18 08:51 Dose: 30 mg Ferrous Sulfate (Feosol) 325 mg PO BID-[facility] Gabapentin (Neurontin) 300 mg PO BID [facility] Last Admin: 12/28/18 08:51 Dose: 300 mg Lisinopril (Zestril) 10 mg PO DAILY [facility] Last Admin: 12/28/18 08:51 Dose: 10 mg Melatonin (Melatonin) 9 mg PO HS PRN PRN Reason: Insomnia Last Admin: 12/27/18 22:17 Dose: 9 mg Morphine Sulfate (Morphine) 2 mg SLOW IVP Q4H PRN PRN Reason: MOD CHEST PAIN Nitroglycerin (Nitrostat) 0.4 mg SL Q5MIN PRN PRN Reason: Chest Pain Ondansetron HCl (Zofran Odt) 4 mg PO Q6H PRN PRN Reason: Nausea/Vomiting Ondansetron HCl (Zofran) 4 mg IVP Q6H PRN PRN Reason: Nausea/Vomiting Pantoprazole Sodium (Protonix) 40 mg PO DAILY [facility] Last Admin: 12/28/18 08:52 Dose: 40 mg Polyethylene Glycol (Miralax) 17 gm PO DAILY PRN PRN Reason: Constipation Sodium Chloride (Normal Saline Pf) 10 ml FS PRN PRN PRN Reason: RECONSTITUTION Ticagrelor (Brilinta) 90 mg PO BID [facility] Last Admin: 12/28/18 08:53 Dose: 90 mg
[2018-12-28 12:21] VITALS: TEMP 97.6
[2018-12-28] MEDS ORDERED: HYDROcodone/Acetaminophen 5/325 mg Tablet PO PRN (15:41)
[2018-12-28 16:48] VITALS: BP 147/67
[2018-12-28] MEDS ORDERED: Ferrous Sulfate 325 MG TAB PO SCH (17:00)
--- NOTE | 2018-12-28 17:01 | PDOC.CTH ---
Cardiology Progress Note - Subjective She is doing great. Her HR is in the 70's at rest and it increases with exertion only. - Objective Vital Signs Temp Pulse Pulse Pulse Resp BP BP 12/28/18 16:43 94 20 12/28/18 12:09 106 H 75 164/76 H 140/65 12/28/18 11:57 97.6 F 108 H 18 12/28/18 08:53 12/28/18 07:50 97.9 F 83 18 BP BP Pulse Ox Pulse Ox Pulse Ox 12/28/18 16:43 147/67 H 93 L 12/28/18 12:09 96 95 12/28/18 11:57 123/71 95 12/28/18 08:53 97 12/28/18 07:50 120/58 L 97 Weight 173 lb 12/27/18 12/28/18 12/29/18 06:59 06:59 06:59 Intake Total 1280 1087 Output Total 1400 Balance 1280 -313 - Physical Examination General/Neuro: alert & oriented x3, NAD Neck: no JVD present Lungs: CTA, unlabored respirations Heart: RRR Abdomen: NT/ND Extremities: other: (no edema) - Telemetry Telemetry Rhythm: NSR - Labs Result Diagrams: 12/28/18 06:56 12/28/18 06:56 Troponin/CKMB Troponin I 0.012 ng/mL (< 0.028) 12/24/18 03:17 - Assessment/Plan 1. New onset CM EF at 30-35% 2. New onset LBBB 3. S Bradycardia 4. CAD s/p PCI to mid distal LAD NICOLE. PLAN: - Will switch her Lisinopril to Entresto 24/25 mg BID. - Will start Entresto Saturday and will stop lisinopril today, she already received a dose of lisinopril this morning. - HR stable. May discharge home. - No BB due to Bradycardia. - Follow up in the office in 1 month.
--- NOTE | 2018-12-29 14:10 | DIS ---
DATE OF ADMISSION: 12/25/2018 DATE OF DISCHARGE: 12/28/2018 DISCHARGE DISPOSITION: Home. PRIMARY DISCHARGE DIAGNOSES: Coronary artery disease, status post stent to mid and distal LAD; congestive heart failure exacerbation with systolic dysfunction and ejection fraction of 35%, NYHA class 2; chest pain due to coronary artery disease. SECONDARY DISCHARGE DIAGNOSES: Chronic obstructive pulmonary disease, dyslipidemia, hypertension, and obesity. PROCEDURES DONE DURING HOSPITALIZATION: Chest x-ray done showed no acute cardiopulmonary abnormality. Nuclear stress test done showed area of scar involving the anteroseptal wall with decreased motion. No evidence of ongoing ischemia. Depressed ejection fraction was 37%. Echo with 2D Doppler showed EF of 30% to 35% with grade 1/3 diastolic dysfunction, severe septal hypokinesis was seen, dilated left ventricle. Cardiac catheterization done on 12/25/[address] Souza showed severe distal LAD disease, status post successful PCI to distal LAD with Synergy NICOLE and small proximal edge dissection covered successfully with 2.25 x 8 mm Synergy NICOLE, mild RCA disease, ejection fraction was 35%. No LV to aortic gradient was seen. She has had a repeat echo done on 12/28/2018, which showed EF of 30% to 35% with severe septal hypokinesis. H and H 8.6 and 27, platelet count 273, MCV is 97. Serum iron 28, ferritin 24, TIBC 368, percent saturation 8, vitamin B12 of 305, folic acid 10.8, BUN 18, creatinine 0.9. Troponin I x3 was negative. INPATIENT CONSULT: Dr. Souza of Cardiology. DISCHARGE PLAN: The patient to follow up with Dr. Souza in 2 to 4 weeks and primary care physician in 1 week. DISCHARGE MEDICATIONS: 1. Aspirin 81 mg p.o. daily. 2. Brilinta 90 mg twice daily. 3. Entresto 24.5/25.5 mg one tab p.o. twice daily to start from . 4. Ferrous sulfate 325 mg p.o. twice daily. 5. Simvastatin 10 mg p.o. at bedtime. 6. [place] p.r.n. for pain. 7. Gabapentin 300 mg p.o. twice daily. 8. Cymbalta 30 mg twice daily. ALLERGIES: NO KNOWN DRUG ALLERGIES. BRIEF COURSE During hospitalization: the patient initially got admitted with complaints of exertional chest pain and shortness of breath. Three sets of cardiac enzymes were negative and a nuclear stress test done showed no evidence of reversible ischemia, but had ejection fraction of around 37%. Echo confirmed these findings as mentioned above. In view of new onset congestive heart failure with the patient's exertional chest pain and dyspnea classical for coronary ischemia, Cardiology consultation with Dr. Souza was requested. She was found to have had distal LAD stenosis and has had stent placement. Post cardiac cath, the patient had significant bradycardic episodes and sinus pauses. She was closely monitored for an extended period of time on telemetry. Her beta blockers were discontinued due to above. Her lisinopril was discontinued on the day of discharge to start Entresto after three days of washout from . She will closely follow up with Dr. Souza in the outpatient setting. Her bradycardic episodes and sinus pauses have resolved from last 30 hours prior to discharge. The patient is ambulating well with no chest pain or exertional shortness of breath at present. Please see a [id number] documentation for the day of discharge on [facility]. Job ID: [id number] [facility]
[2018-12-29] MEDS ORDERED: Sacubitril 24.5 MG/Valsartan 25.5 MG TABLET PO SCH (21:00)
== END 2018-12-28 17:59 | disposition home or self-care (01) | DRG 246 ==
LOC: ERS 20:49 → 2NO 21:45 → OBSVTOIN 12-25 14:03
PROVIDERS: ADMIT Hospitalist; ATTEND Hospitalist
PROC: 027035Z Dilation of Coronary Artery, One Artery with Two Drug-eluting Intraluminal Devices, Percutaneous Approach (ICD-10-PCS; principal; 2018-12-25)
PROC: 4A023N7 Measurement of Cardiac Sampling and Pressure, Left Heart, Percutaneous Approach (ICD-10-PCS; 2018-12-25)
PROC: B2111ZZ Fluoroscopy of Multiple Coronary Arteries using Low Osmolar Contrast (ICD-10-PCS; 2018-12-25)
PROC: B2151ZZ Fluoroscopy of Left Heart using Low Osmolar Contrast (ICD-10-PCS; 2018-12-25)
DX: I25.10 Atherosclerotic heart disease of native coronary artery without angina pectoris (principal); I50.21 Acute systolic (congestive) heart failure; I13.0 Hypertensive heart and chronic kidney disease with heart failure and stage 1 through stage 4 chronic kidney disease, or unspecified chronic kidney disease; K21.9 Gastro-esophageal reflux disease without esophagitis; I42.0 Dilated cardiomyopathy; N18.3 Chronic kidney disease, stage 3 (moderate); J44.9 Chronic obstructive pulmonary disease, unspecified; I44.7 Left bundle-branch block, unspecified; R00.1 Bradycardia, unspecified; E66.9 Obesity, unspecified; Z68.33 Body mass index [BMI] 33.0-33.9, adult; Z85.3 Personal history of malignant neoplasm of breast; Z87.891 Personal history of nicotine dependence; Z92.21 Personal history of antineoplastic chemotherapy; Z92.3 Personal history of irradiation; Z79.82 Long term (current) use of aspirin; Z79.899 Other long term (current) drug therapy; Z96.652 Presence of left artificial knee joint
CPT/HCPCS: 36415; 36416; 71045; 78452; 80048; 80053; 82607; 82728; 82746; 83540; 83550; 84484; 85025; 85347; 92928; 93005; 93010; 93017; 93306; 93458; 93798; 94760; 99152; 99153; A9500; C1725; C1769; C9113; C9600; J0153; J1644; J1650; J2250; J3010; Q9967

== ENCOUNTER 2019-01-01 11:06 | Emergency (ER) | payer MEDICARE, BC ==
[2019-01-01 11:50] LABS: #Basophils 0.1 thou/uL (0.0-0.2); #Eosinphils 0.2 thou/uL (0.0-0.7); #Lymphocytes 1.8 thou/uL (1.20-3.40); #Monocytes 0.6 thou/uL (0.11-0.59); #Neutrophils 5.8 thou/uL (1.40-6.50); %Basophils 0.8 % (0.0-1.0); %Eosinophils 2.8 % (0.0-10.0); %Lymphocytes 20.9 % (21.0-51.0); %Monocytes 6.9 % (0.0-10.0); %Neutrophils 68.7 % (42.0-75.0); Hemoglobin 9.3 g/dL (12.0-16.0); Mean Corpuscular HGB CONC 32.1 g/dL (32.0-36.0); Mean Corpuscular Hemoglobin 31.2 pg (27.0-31.0); Mean Corpuscular Volume 97.3 fL (78.0-98.0); Mean Platelet Volume 8.1 fL (7.4-10.4); Platelet Count 419 thou/uL (130-400); RBC Distribution Width 14.7 % (11.5-14.5); Red Blood Cell (RBC) Count 2.97 mill/uL (4.20-5.40); White Blood Cell (WBC) Count 8.5 thou/uL (4.8-10.8)
--- NOTE | 2019-01-01 12:06 | RAD ---
PORTABLE CHEST: Date: 01/01/19 HISTORY: Chest pain. Patient having long pauses in heart rate and heartbeat. COMPARISON: 12/23/18 study. FINDINGS: Heart size is within normal limits for portable technique. There are atherosclerotic changes of the a adarsh. Soft tissue density along the right heart border, probably related to an epicardial fat pad is stable. Chronic lung changes are seen. Surgical clips in the left axilla. IMPRESSION: Chronic lung change. Stable appearing chest. POS: [facility]
[2019-01-01 12:11] LABS: ALT (SGPT) 13 U/L (8-55); AST (SGOT) 13 U/L (5-34); Alkaline Phosphatase 56 U/L (40-150); Anion Gap 14 mmol/L (10-20); BUN (Urea Nitrogen) 21 mg/dL (9.8-20.1); Bilirubin, Total 0.4 mg/dL (0.2-1.2); Calc. Creatinine Clearance 0 mL/min (70-130); Calcium 9.1 mg/dL (7.8-10.44); Carbon Dioxide 22 mmol/L (23-31); Chloride 106 mmol/L (98-107); Estimated GFR-MDRD 47; Glucose 135 mg/dL (83-110); Sodium 138 mmol/L (136-145)
[2019-01-01 12:33] LABS: CKMB 2.4 ng/mL (0-6.6)
== END 2019-01-01 14:15 | disposition home or self-care (01) ==
LOC: ERS 11:06
DX: I49.9 Cardiac arrhythmia, unspecified (principal); J02.9 Acute pharyngitis, unspecified; E11.9 Type 2 diabetes mellitus without complications; I10 Essential (primary) hypertension; Z79.82 Long term (current) use of aspirin; Z79.899 Other long term (current) drug therapy
CPT/HCPCS: 71045; 80053; 82553; 84484; 85025; 93005

== ENCOUNTER 2019-01-16 17:44 | Inpatient (IN) | payer MEDICARE, BC ==
[2019-01-16 18:33] LABS: #Basophils 0.1 thou/uL (0.0-0.2); #Eosinphils 0.1 thou/uL (0.0-0.7); #Lymphocytes 1.7 thou/uL (1.20-3.40); #Monocytes 0.6 thou/uL (0.11-0.59); %Basophils 0.8 % (0.0-1.0); %Eosinophils 1.6 % (0.0-10.0); %Lymphocytes 20.4 % (21.0-51.0); %Monocytes 6.5 % (0.0-10.0); %Neutrophils 70.7 % (42.0-75.0); Hemoglobin 7.7 g/dL (12.0-16.0); Mean Corpuscular HGB CONC 32.4 g/dL (32.0-36.0); Mean Corpuscular Hemoglobin 32.8 pg (27.0-31.0); Mean Platelet Volume 8.7 fL (7.4-10.4); Platelet Count 290 thou/uL (130-400); RBC Distribution Width 17.5 % (11.5-14.5); Red Blood Cell (RBC) Count 2.35 mill/uL (4.20-5.40); White Blood Cell (WBC) Count 8.5 thou/uL (4.8-10.8)
[2019-01-16 18:51] LABS: ALT (SGPT) 7 U/L (8-55); AST (SGOT) 10 U/L (5-34); Albumin 3.7 g/dL (3.4-4.8); Alkaline Phosphatase 54 U/L (40-150); Anion Gap 10 mmol/L (10-20); BUN (Urea Nitrogen) 30 mg/dL (9.8-20.1); Bilirubin, Total 0.5 mg/dL (0.2-1.2); Calc. Creatinine Clearance 0 mL/min (70-130); Calcium 9.1 mg/dL (7.8-10.44); Carbon Dioxide 27 mmol/L (23-31); Chloride 108 mmol/L (98-107); Estimated GFR-MDRD 50; Globulin 2.5 g/dL (2.4-3.5); Glucose 145 mg/dL (83-110); Protein, Total 6.2 g/dL (6.0-8.3); Sodium 142 mmol/L (136-145)
--- NOTE | 2019-01-16 18:51 | RAD ---
AP VIEW CHEST: 01/16/19 HISTORY: Tachycardia, dyspnea. AP view chest is obtained on 01/16/19. Comparison made to previous exam from 01/01/19. AP view chest demonstrates some mild cardiomegaly. There is some right ventricular enlargement seen o f the cardiac silhouette. 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 The lungs are well aerated, otherwise. No evidence of a cute intrathoracic abnormality seen. Left axillary lymph node dissection clip seen. IMPRESSION: No evidence of acute intrathoracic abnormality seen. POS: [facility]
[2019-01-16 19:13] LABS: CKMB 1.6 ng/mL (0-6.6)
[2019-01-16] MEDS ORDERED: Potassium Chloride 20 MEQ TAB ONE (20:29)
[2019-01-16] MEDS ORDERED: Potassium Chloride 20 MEQ/100 ML PREMIX BAG ONE (20:29)
[2019-01-16 21:58] LABS: Troponin I 0.106 ng/mL (< 0.028)
[2019-01-16] MEDS ORDERED: Acetaminophen 325 MG TAB PO PRN (23:04)
[2019-01-16 23:25] VITALS: BMI 33.7
--- NOTE | 2019-01-17 00:46 | HP ---
CHIEF COMPLAINT: Weakness. HISTORY OF PRESENT ILLNESS: This patient is av 83-year-old female who was recently discharged from this facility. The patient was originally admitted on 12/25/2018. She was having some chest discomfort at that time, and her workup revealed that she had cardiomyopathy with an ejection fraction of 35%. She had a heart catheterization, which revealed distal LAD lesion requiring stenting. The patient was given LifeVest and started on anti-platelet therapy. Of note, that admission was also marked by bradycardia surrounding her heart catheterization procedure. She reports that she had been on beta blockers for decades and believe she started on those around 1993. She reports that she had an episode of SVT at that time and she is not sure if she was started on the beta janki for blood pressure or because of the SVT. The beta blockers were discontinued with her episode of bradycardia and the bradycardia resolved. They attempted then to put her on some low-dose carvedilol, but her heart rate dropped again and so those were discontinued. The patient was discharged to home to discontinue her lisinopril and Entresto was to be started few days subsequent and she was to follow up with Dr. Souza. The patient reports that she was actually doing well and was able to do some light housework. However, she started developing some cough and postnasal drip symptoms. She saw her PCP who ordered some prednisone. She subsequently started feeling more short of breath and profoundly weak. She called her PCP who stopped the prednisone, but that did not help and she progressed until today when she felt even weaker, more short of breath with dyspnea on minimal exertion and lightheadedness. The patient reports that she has had some anemia which was felt to be due to more of an occult GI bleed in the past and she was worried that, that might be the case again. She cannot panel installer her stool character because she is chronically on iron supplementation. She does admit to having some indigestion type symptoms on Saturday, but that resolved and since then, she denies any abdominal pain, nausea, or indigestion type symptoms. REVIEW OF SYSTEMS: As noted above, otherwise all systems were reviewed and all pertinent positives and negatives noted in the history of present illness. PAST MEDICAL HISTORY: As noted above, significant for cardiomyopathy with EF of 35%. She has some diastolic dysfunction, grade 1; coronary artery disease status post distal LAD stent; hypertension; gastroesophageal reflux; breast cancer status post lumpectomy, chemo and radiation; chronic kidney disease, stage 3; COPD and remote history of SVT; prior history of iron deficiency anemia thought to possibly be due to an occult GI bleed that is low grade in nature; peripheral neuropathy. PAST SURGICAL HISTORY: History of lumbar spine surgery, ORIF of the right humerus, lumpectomy, surgical herniorrhaphy, parathyroidectomy, appendectomy, and left partial knee replacement. SOCIAL HISTORY: Former smoker, quit 10 years ago. No alcohol or tobacco or illicit drugs. She is full code. ALLERGIES: NONE. CURRENT MEDICATIONS: 1. Brilinta 90 mg b.i.d. 2. Simvastatin 10 mg at bedtime. 3. Entresto 24.5/25.5 one p.o. b.i.d. 4. Gabapentin 300 mg b.i.d. 5. Feosol 325 b.i.d. 6. Duloxetine 30 mg b.i.d. 7. Plavix 75 mg daily. 8. Aspirin 1 p.o. daily. 9. Of note, the patient reports that she is to be transitioning off Brilinta on to Plavix alone when her current prescription is completed. PHYSICAL EXAMINATION: VITAL SIGNS: BP is 148/70, pulse is 112, respirations 20, O2 saturation 96% on room air. Pulse currently is 130s. GENERAL APPEARANCE: The patient is awake and alert, sitting at the bedside, conversant. She appears generally pale. She is extremely pleasant and cooperative. She is not tachypneic. HEENT: PERRL. No OP lesions. NECK: Supple and symmetric without lymphadenopathy, JVD, or carotid bruits. HEART: Regular rate and rhythm without murmurs, gallops, or rubs. LUNGS: Clear to auscultation bilaterally with good chest wall expansion and air exchange. ABDOMEN: Soft, nontender, and nondistended. Positive bowel sounds. No masses. No organomegaly. EXTREMITIES: Warm and dry without significant cyanosis, clubbing, or any palpable edema. NEUROLOGIC: The patient is fully intact. Moves all extremities spontaneously. No evidence of any focal deficits. She appears to be completely cognitively intact. PSYCHIATRIC: The patient has normal affect and behavior. LABORATORY DATA: White count 8.5, hemoglobin 7.7, which is down from 9.3 from her previous admission and down from 12.9 a year ago. MCV is 101. Sodium 142, potassium 3.0, chloride 108, CO2 is 27, BUN 30, creatinine 1.05, glucose 145, calcium 9.1, magnesium 2.0, AST 10, ALT 7. Troponin 0.120, subsequent 0.106. BNP 809.6. Chest x-ray shows no evidence of acute disease. EKG shows sinus tachycardia at 122 with left bundle-branch block and left axis deviation. No significant change from 01/01/2019. ER interventions included some IV fluids, potassium 20 mEq in IV and 40 mEq p.o. IMPRESSION AND PLAN: 1. Dyspnea on exertion without evidence of significant hypoxia. The patient is currently reporting that she feels better and it appears as though she is symptomatic from tachycardia and possibly anemia. Cardiology was called from the emergency department and will see the patient in the morning. Her EKG appears to be sinus tach and not supraventricular tachycardia. She has been intolerant to beta blockers because of bradycardia and the plan had been to pursue pacemaker placement at the time of her defibrillator placement 90 days out from her initial diagnosis. I am concerned that this may be related to anemia rather than underlying cardiac situation. 2. Anemia. The patient's hemoglobin is down from her previous numbers and she is on the Brilinta. We will go ahead and give her a unit of packed red blood cells given her tachycardia and we will check a repeat CBC in the morning. We will check stool for occult blood. The patient may benefit from endoscopy at some point, but she needs to be more stable and cleared by Cardiology to do so. 3. Coronary artery disease. The patient is recently status post stent placement, still on Brilinta. Cardiology consult has been obtained. 4. Chronic kidney disease, stage 3, stable. 5. Elevated troponins secondary to recent cardiac intervention. No further workup or intervention indicated. 6. Cardiomyopathy, EF of 35%. The patient is stable and has a LifeVest in place. She is on Entresto. 7. History of neuropathy. Continue the gabapentin. Job ID: [id number]
[2019-01-17 01:50] LABS: Troponin I 0.115 ng/mL (< 0.028)
[2019-01-17] MEDS ORDERED: HYDROcodone/Acetaminophen 5/325 mg Tablet PO PRN ×2 (03:20→06:54)
[2019-01-17 06:26] LABS: #Eosinphils 0.1 thou/uL (0.0-0.7); #Lymphocytes 1.7 thou/uL (1.20-3.40); #Monocytes 0.4 thou/uL (0.11-0.59); %Eosinophils 1.3 % (0.0-10.0); %Lymphocytes 23.7 % (21.0-51.0); %Monocytes 6.1 % (0.0-10.0); %Neutrophils 68.8 % (42.0-75.0); Hemoglobin 8.2 g/dL (12.0-16.0); Mean Corpuscular HGB CONC 32.9 g/dL (32.0-36.0); Mean Corpuscular Hemoglobin 32.7 pg (27.0-31.0); Mean Corpuscular Volume 99.1 fL (78.0-98.0); Mean Platelet Volume 8.8 fL (7.4-10.4); Platelet Count 247 thou/uL (130-400); RBC Distribution Width 17.2 % (11.5-14.5); Red Blood Cell (RBC) Count 2.51 mill/uL (4.20-5.40); White Blood Cell (WBC) Count 7.3 thou/uL (4.8-10.8)
[2019-01-17 06:44] LABS: Anion Gap 11 mmol/L (10-20); BUN (Urea Nitrogen) 25 mg/dL (9.8-20.1); Calc. Creatinine Clearance 61 mL/min (70-130); Calcium 8.4 mg/dL (7.8-10.44); Carbon Dioxide 24 mmol/L (23-31); Chloride 110 mmol/L (98-107); Estimated GFR-MDRD 62; Glucose 134 mg/dL (83-110); Potassium 3.6 mmol/L (3.5-5.1); Sodium 141 mmol/L (136-145)
[2019-01-17] MEDS ORDERED: Potassium Chloride 20 MEQ TAB PO SCH (08:00)
[2019-01-17] MEDS ORDERED: Sacubitril 24.5 MG/Valsartan 25.5 MG TABLET PO SCH (09:00)
[2019-01-17] MEDS: Ferrous Sulfate 325 MG TAB PO SCH ×2 (09:27→16:04)
[2019-01-17] MEDS: Aspirin Chewable 81 MG TAB PO SCH (09:27)
[2019-01-17] MEDS: Clopidogrel Bisulfate 75 MG TAB PO SCH (09:27)
[2019-01-17] MEDS: Gabapentin 300 MG CAP PO SCH ×2 (09:28→20:52)
[2019-01-17] MEDS: DULoxetine 30 MG CAP PO SCH ×2 (09:28→20:52)
[2019-01-17] MEDS: Cyanocobalamin (Vitamin B-12) 1,000 MCG TAB PO SCH (09:28)
[2019-01-17] MEDS: Furosemide 40 MG TAB PO SCH ×2 (09:28→13:00)
[2019-01-17] MEDS: Folic Acid 1 MG TAB PO SCH (09:28)
[2019-01-17] MEDS: Loratadine 10 MG TAB PO SCH (09:28)
[2019-01-17] MEDS ORDERED: Sodium Chloride 0.65% Nasal 44 ML BOT EA NARE PRN (09:55)
[2019-01-17] MEDS ORDERED: Diabetic Tussin 200 MG/10 ML UDCUP PO PRN (09:55)
[2019-01-17] MEDS ORDERED: Nitroglycerin 0.4 MG TAB (25 Tab Bottle) SL PRN (09:55)
[2019-01-17] MEDS ORDERED: Cepastat Lozenges 1 LOZ PO PRN (09:55)
[2019-01-17] MEDS ORDERED: Bisacodyl 5 MG TAB PO PRN (09:55)
[2019-01-17] MEDS ORDERED: Bisacodyl 10 MG SUPP PR PRN (09:55)
[2019-01-17] MEDS ORDERED: Loperamide HCl 2 MG CAP PO PRN (09:55)
[2019-01-17] MEDS ORDERED: hydrALAZINE 20 MG/ML VIAL SLOW IVP PRN (09:55)
[2019-01-17] MEDS ORDERED: Eucerin (Mineral Oil/Petrolatum,White) 30 gm Jar TOP PRN (09:55)
[2019-01-17] MEDS ORDERED: Ondansetron PF 4 MG/2 ML Vial IVP PRN (09:55)
[2019-01-17] MEDS ORDERED: Artificial Tears 18 DROP/0.9 ML EA EYE PRN (09:55)
[2019-01-17] MEDS ORDERED: Senokot S 8.6-50 MG TAB PO PRN (09:55)
[2019-01-17] MEDS ORDERED: Ondansetron ODT 4 MG TAB PO PRN (09:55)
[2019-01-17] MEDS ORDERED: Zolpidem Tartrate 5 MG TAB PO PRN (09:55)
--- NOTE | 2019-01-17 09:56 | PDOC.PN ---
- Subjective Encounter Start Date: 01/17/19 Encounter Start Time: 07:20 -: old records requested/rev this morning pt is on room air, doing ok, still has tachycardia, no chest pain - Objective Resuscitation Status - Order Detail: 01/16/19 23:04 Resuscitation Status Routine Resuscitation Status: FULL: Full Resuscitation Discussed with: Patient MAR Reviewed: Yes Vital Signs & Weight: Vital Signs (12 hours) Temp Pulse Resp BP Pulse Ox 01/17/19 07:12 97.7 F 112 H 19 145/76 H 93 L 01/17/19 04:00 98.1 F 119 H 20 134/88 95 01/17/19 01:00 98.6 F 95 18 138/80 98 01/16/19 23:12 96 01/16/19 22:35 98.1 F 130 H 22 H 143/75 H 98 01/16/19 22:05 98 Weight Weight 172 lb 8 oz I&O: 01/16/19 01/17/19 01/18/19 06:59 06:59 06:59 Intake Total 450 Output Total 700 Balance -250 Result Diagrams: 01/17/19 05:13 01/17/19 05:13 Radiology Reviewed by me: Yes (chest xray reviewed) EKG Reviewed by me: Yes (tachycardia) Phys Exam - Physical Examination Constitutional: NAD HEENT: PERRLA, moist MMs, sclera anicteric Neck: no JVD, supple Respiratory: no wheezing, no rales, no rhonchi Cardiovascular: RRR, no significant murmur, no rub tachycardia Gastrointestinal: soft, non-tender, no distention, positive bowel sounds Musculoskeletal: no edema, pulses present Neurological: non-focal, normal sensation, moves all 4 limbs Lymphatic: no nodes Psychiatric: normal affect, A&O x 3 Skin: no rash, normal turgor Dx/Plan (1) GIRALDO (dyspnea on exertion) Code(s): R06.09 - OTHER FORMS OF DYSPNEA Status: Acute (2) Hypokalemia Code(s): E87.6 - HYPOKALEMIA Status: Acute (3) CAD (coronary artery disease) Code(s): I25.10 - ATHSCL HEART DISEASE OF [place] CORONARY ARTERY W/O ANG PCTRS Status: Chronic Qualifiers: Comment: (4) Chronic obstructive lung disease Status: Chronic Qualifiers: (5) Chronic systolic heart failure, ACC/AHA stage C Code(s): I50.22 - CHRONIC SYSTOLIC (CONGESTIVE) HEART FAILURE Status: Chronic (6) Diabetes type 2, controlled Code(s): E11.9 - TYPE 2 DIABETES MELLITUS WITHOUT COMPLICATIONS Status: Chronic (7) Dyslipidemia Code(s): E78.5 - HYPERLIPIDEMIA, UNSPECIFIED Status: Chronic (8) Hypertension Code(s): I10 - ESSENTIAL (PRIMARY) HYPERTENSION Status: Chronic Qualifiers: (9) Macrocytic anemia Code(s): D53.9 - NUTRITIONAL ANEMIA, UNSPECIFIED Status: Chronic (10) Obesity (BMI 30.0-34.9) Code(s): E66.9 - OBESITY, UNSPECIFIED Status: Chronic (11) Stenosis, spinal, lumbar Code(s): M48.06 - SPINAL STENOSIS, LUMBAR REGION * DO NOT USE * Status: Chronic - Plan cont current plan of care * cardiology consulted * home medication reconciled * pt is euvolemic * medication reviewed as below * symptomatic treatment * add lasix Po. * add folic acid and vitamin B12 Review of Systems - Review of Systems ENT: negative: Ear Pain, Ear Discharge, Nose Pain, Nose Discharge, Nose Congestion, Mouth Pain, Mouth Swelling, Throat Pain, Throat Swelling, Other Respiratory: SOB with Excertion. negative: Cough, Dry, Shortness of Breath, Hemoptysis, Pleuritic Pain, Sputum, Wheezing Cardiovascular: negative: chest pain, palpitations, orthopnea, paroxysmal nocturnal dyspnea, edema, light headedness, other Gastrointestinal: negative: Nausea, Vomiting, Abdominal Pain, Diarrhea, Constipation, Melena, Hematochezia, Other Genitourinary: negative: Dysuria, Frequency, Incontinence, Hematuria, Retention , Other Musculoskeletal: negative: Neck Pain, Shoulder Pain, Arm Pain, Back Pain, Hand Pain, Leg Pain, Foot Pain, Other Skin: negative: Rash, Lesions, Eduar, Bruising, Other - Medications/Allergies Allergies/Adverse Reactions: Allergies Allergy/AdvReac Type Severity Reaction Status Date / Time No Known Allergies Allergy Verified 12/24/18 02:28 Medications: Current Medications Acetaminophen (Tylenol) 650 mg PO Q4H PRN PRN Reason: Headache/Fever/Mild Pain (1-3) Hydrocodone Bitart/Acetaminophen ([place] 5/325) 1 tab PO Q6H PRN PRN Reason: Moderate Pain (4-6) Last Admin: 01/17/19 04:04 Dose: 1 tab Aspirin (Aspirin Chewable) 81 mg PO DAILY [facility] Last Admin: 01/17/19 09:27 Dose: 81 mg Clopidogrel Bisulfate (Plavix) 75 mg PO DAILY [facility] Last Admin: 01/17/19 09:27 Dose: 75 mg Cyanocobalamin (Vitamin B-12) 1,000 mcg PO DAILY [facility] Last Admin: 01/17/19 09:28 Dose: 1,000 mcg Duloxetine HCl (Cymbalta) 30 mg PO BID [facility] Last Admin: 01/17/19 09:28 Dose: 30 mg Ferrous Sulfate (Feosol) 325 mg PO BID-[facility] Last Admin: 01/17/19 09:27 Dose: 325 mg Folic Acid (Folvite) 1 mg PO DAILY [facility] Last Admin: 01/17/19 09:28 Dose: 1 mg Furosemide (Lasix) 40 mg PO 0900,1400 [facility] Last Admin: 01/17/19 09:28 Dose: 40 mg Gabapentin (Neurontin) 300 mg PO BID [facility] Last Admin: 01/17/19 09:28 Dose: 300 mg Loratadine (Claritin) 10 mg PO DAILY [facility] Last Admin: 01/17/19 09:28 Dose: 10 mg Potassium Chloride (K-Dur) 40 meq PO 0800 [facility] Stop: 01/17/19 10:00 Last Admin: 01/17/19 09:27 Dose: 40 meq Sacubitril/Valsartan (Entresto 24.5 Mg-25.5 Mg Tablet) 1 tab PO BID [facility] Last Admin: 01/17/19 09:26 Dose: 1 tab Simvastatin (Zocor) 10 mg PO [facility]
[2019-01-17] MEDS ORDERED: Carvedilol 3.125 MG TAB PO SCH (14:00)
--- NOTE | 2019-01-17 14:25 | CON ---
DATE OF CONSULTATION: HISTORY OF PRESENT ILLNESS: The patient is a very pleasant 83-year-old woman, who presents for evaluation of dyspnea and weakness. The patient was recently seen in December of 2018, with chest pain. She was found to have a moderate decrease in left ventricular systolic function. She underwent a cardiac catheterization. She was found to have a severe disease with a 90% lesion in the LAD, 30% lesion in the right RCA. The patient subsequently underwent PTCA and stent placed in the LAD. The patient was placed Brilinta and aspirin. The patient has noticed having dyspnea since she has been out of the hospital. She was recently going to switch from Brilinta to Plavix. Unfortunately, she started taking both medications for at least a week. She started feeling weak and lightheaded. She denied having any chest discomfort. PAST MEDICAL HISTORY: Her past medical history is significant for; 1. Coronary artery disease. 2. Hypertension. 3. Renal insufficiency. 4. Diabetes mellitus. PAST SURGICAL HISTORY: She has had lumbar spine surgery, lumpectomy, herniorrhaphy, parathyroidectomy, appendectomy, and knee surgery. SOCIAL HISTORY: Former smoker. MEDICATIONS: 1. Brilinta 90 b.i.d. 2. Simvastatin 10 daily. 3. Entresto 24.5/25.5 one tablet b.i.d. 4. Gabapentin 300 b.i.d. 5. Plavix 75 daily. 6. Aspirin 81 daily. 7. Iron sulfate 325 daily. ALLERGIES: NONE. REVIEW OF SYSTEMS: Ten-point system noticeable for upper respiratory coughing. PHYSICAL EXAMINATION: GENERAL: Obese woman, who is pale, in no acute distress. VITAL SIGNS: Blood pressure of 131/81. NECK: Showed no jugular venous distention. LUNGS: Clear to auscultation. HEART: Regular rate and rhythm. Normal S1 and S2. ABDOMEN: Distended. EXTREMITIES: Showed no edema. VASCULAR: Radial pulses 2+. LABORATORY DATA: White blood cell count 7.3, hemoglobin 8.2, hematocrit 24.9, and platelets 247. Sodium is 141, potassium 3.6, chloride 110, bicarbonate 24, BUN 25, creatinine 0.88. Troponin was 0.1. DIAGNOSTIC DATA: Her EKG revealed her to have sinus tachycardia with a left bundle-branch block. IMPRESSION: 1. Dyspnea. 2. History of percutaneous transluminal coronary angioplasty and stent placement of the left anterior descending. 3. Ischemic cardiomyopathy. 4. Anemia. 5. Diabetes mellitus. 6. History of hypertension. 7. History of bradycardia. This patient presents with dyspnea. She was markedly anemic. Unfortunately, she was taking both Plavix and Brilinta. The patient also has been very short of breath. She will be taken off Brilinta and continued on Plavix. The patient's heart rate is elevated, so we will try again to see if she can tolerate a low dose of Coreg. We would also recommend this patient take a higher dose of Entresto. We will also recommend she take a higher dose of lipid lowering medication. We will follow this patient with you through her hospitalization. Job ID: [id number]
[2019-01-17] MEDS: Carvedilol 3.125 MG TAB PO SCH (16:04)
[2019-01-17] MEDS: Sacubitril 49 MG/Valsartan 51 MG TABLET PO SCH (20:52)
[2019-01-17] MEDS: Atorvastatin Calcium 20 MG TAB PO SCH (20:52)
[2019-01-17] MEDS: Melatonin 3 MG TAB PO PRN (20:55)
[2019-01-17] MEDS ORDERED: Simvastatin 5 MG TAB PO SCH (21:00)
--- NOTE | 2019-01-18 09:51 | PDOC.PN ---
- Subjective Encounter Start Date: 01/18/19 Encounter Start Time: 08:50 -: old records requested/rev Patient seen and examined. No new complaints. No overnight events - Objective Resuscitation Status - Order Detail: 01/16/19 23:04 Resuscitation Status Routine Resuscitation Status: FULL: Full Resuscitation Discussed with: Patient CYNTHIA Reviewed: Yes Vital Signs & Weight: Vital Signs (12 hours) Temp Pulse Resp BP Pulse Ox 01/18/19 07:46 97.7 F 96 17 103/65 95 01/18/19 05:00 97.4 F L 80 20 98/64 94 L Weight Weight 172 lb 8 oz I&O: 01/17/19 01/18/19 01/19/19 06:59 06:59 06:59 Intake Total 450 1940 Output Total 700 4200 Balance -250 -2260 Result Diagrams: 01/17/19 05:13 01/17/19 05:13 EKG Reviewed by me: Yes Phys Exam - Physical Examination Constitutional: NAD HEENT: PERRLA, moist MMs, sclera anicteric Neck: no JVD, supple Respiratory: no wheezing, no rales, no rhonchi Cardiovascular: RRR, no significant murmur, no rub Gastrointestinal: soft, non-tender, no distention, positive bowel sounds Musculoskeletal: no edema, pulses present Neurological: non-focal, normal sensation, moves all 4 limbs Lymphatic: no nodes Psychiatric: normal affect, A&O x 3 Skin: no rash, normal turgor Dx/Plan (1) GIRALDO (dyspnea on exertion) Code(s): R06.09 - OTHER FORMS OF DYSPNEA Status: Acute (2) Hypokalemia Code(s): E87.6 - HYPOKALEMIA Status: Acute (3) CAD (coronary artery disease) Code(s): I25.10 - ATHSCL HEART DISEASE OF [place] CORONARY ARTERY W/O ANG PCTRS Status: Chronic Qualifiers: Comment: (4) Chronic obstructive lung disease Status: Chronic Qualifiers: (5) Chronic systolic heart failure, ACC/AHA stage C Code(s): I50.22 - CHRONIC SYSTOLIC (CONGESTIVE) HEART FAILURE Status: Chronic (6) Diabetes type 2, controlled Code(s): E11.9 - TYPE 2 DIABETES MELLITUS WITHOUT COMPLICATIONS Status: Chronic (7) Dyslipidemia Code(s): E78.5 - HYPERLIPIDEMIA, UNSPECIFIED Status: Chronic (8) Hypertension Code(s): I10 - ESSENTIAL (PRIMARY) HYPERTENSION Status: Chronic Qualifiers: (9) Macrocytic anemia Code(s): D53.9 - NUTRITIONAL ANEMIA, UNSPECIFIED Status: Chronic (10) Obesity (BMI 30.0-34.9) Code(s): E66.9 - OBESITY, UNSPECIFIED Status: Chronic (11) Stenosis, spinal, lumbar Code(s): M48.06 - SPINAL STENOSIS, LUMBAR REGION * DO NOT USE * Status: Chronic - Plan cont current plan of care * cardiology recommendation appreciated * param is now off as she is euvolemic * further plan as per cardiology * will repeat labs tomorrow * will adjust meds . Review of Systems - Review of Systems ENT: negative: Ear Pain, Ear Discharge, Nose Pain, Nose Discharge, Nose Congestion, Mouth Pain, Mouth Swelling, Throat Pain, Throat Swelling, Other Respiratory: negative: Cough, Dry, Shortness of Breath, Hemoptysis, SOB with Excertion, Pleuritic Pain, Sputum, Wheezing Cardiovascular: negative: chest pain, palpitations, orthopnea, paroxysmal nocturnal dyspnea, edema, light headedness, other Gastrointestinal: negative: Nausea, Vomiting, Abdominal Pain, Diarrhea, Constipation, Melena, Hematochezia, Other Genitourinary: negative: Dysuria, Frequency, Incontinence, Hematuria, Retention , Other Musculoskeletal: negative: Neck Pain, Shoulder Pain, Arm Pain, Back Pain, Hand Pain, Leg Pain, Foot Pain, Other - Medications/Allergies Allergies/Adverse Reactions: Allergies Allergy/AdvReac Type Severity Reaction Status Date / Time No Known Allergies Allergy Verified 12/24/18 02:28 Medications: Current Medications Acetaminophen (Tylenol) 650 mg PO Q4H PRN PRN Reason: Headache/Fever/Mild Pain (1-3) Hydrocodone Bitart/Acetaminophen ([place] 5/325) 1 tab PO Q6H PRN PRN Reason: Moderate Pain (4-6) Last Admin: 01/17/19 04:04 Dose: 1 tab Artificial Tears (Tears Naturale) 2 drop EA EYE PRN PRN PRN Reason: Dry Eyes Aspirin (Aspirin Chewable) 81 mg PO DAILY [facility] Last Admin: 01/17/19 09:27 Dose: 81 mg Atorvastatin Calcium (Lipitor) 20 mg PO HS [facility] Last Admin: 01/17/19 20:52 Dose: 20 mg Bisacodyl (Dulcolax) 10 mg NE DAILYPRN PRN PRN Reason: Constipation Bisacodyl (Dulcolax) 10 mg PO DAILYPRN PRN PRN Reason: Constipation [facility] ([facility] Last Admin: 01/17/19 16:04 Dose: 3.125 mg Clopidogrel Bisulfate (Plavix) 75 mg PO DAILY [facility] Last Admin: 01/17/19 09:27 Dose: 75 mg Cyanocobalamin (Vitamin B-12) 1,000 mcg PO DAILY [facility] Last Admin: 01/17/19 09:28 Dose: 1,000 mcg Duloxetine HCl (Cymbalta) 30 mg PO BID [facility] Last Admin: 01/17/19 20:52 Dose: 30 mg Ferrous Sulfate ([facility]ol) [facility] Last Admin: 01/17/19 16:04 Dose: 325 mg Folic Acid (Folvite) 1 mg PO DAILY [facility] Last Admin: 01/17/19 09:28 Dose: 1 mg Gabapentin (Neurontin) 300 mg PO BID [facility] Last Admin: 01/17/19 20:52 Dose: 300 mg Guaifenesin (Robitussin Sf) 200 mg PO Q4H PRN PRN Reason: Cough Hydralazine HCl (Apresoline) 10 mg SLOW IVP Q4H PRN PRN Reason: SBP > 180 and HR < 70 Loperamide HCl (Imodium) 2 mg PO PRN PRN PRN Reason: Diarrhea/Loose Stools Loratadine (Claritin) 10 mg PO DAILY [facility] Last Admin: 01/17/19 09:28 Dose: 10 mg Melatonin (Melatonin) 4.5 mg PO HS PRN PRN Reason: Insomnia Last Admin: 01/17/19 20:55 Dose: 4.5 mg Mineral Oil/White Petrolatum (Eucerin Cream) 0 gm TOP BIDPRN PRN PRN Reason: Dry Skin Nitroglycerin (Nitrostat) 0.4 mg SL Q5MIN PRN PRN Reason: Chest Pain Ondansetron HCl (Zofran Odt) 4 mg PO Q6H PRN PRN Reason: Nausea/Vomiting Ondansetron HCl (Zofran) 4 mg IVP Q6H PRN PRN Reason: Nausea/Vomiting Sacubitril/Valsartan (Entresto 49 Mg-51 Mg Tablet) 1 tab PO BID [facility] Last Admin: 01/17/19 20:52 Dose: 1 tab Senna/Docusate Sodium (Senokot S) 2 tab PO BID PRN PRN Reason: Constipation Sodium Chloride ([place] Nasal [place] 0.65%) 0 ml EA NARE QIDPRN PRN PRN Reason: Nasal Congestion Throat Lozenges (Cepastat Lozenges) 1 marisol PO Q2H PRN PRN Reason: Sore Throat Zolpidem Tartrate (Ambien) 5 mg PO HSPRN PRN PRN Reason: Insomnia
[2019-01-18] MEDS: Ferrous Sulfate 325 MG TAB PO SCH ×2 (10:11→16:11)
[2019-01-18] MEDS: Clopidogrel Bisulfate 75 MG TAB PO SCH (10:12)
[2019-01-18] MEDS: Gabapentin 300 MG CAP PO SCH ×2 (10:12→20:39)
[2019-01-18] MEDS: Aspirin Chewable 81 MG TAB PO SCH (10:12)
[2019-01-18] MEDS: Cyanocobalamin (Vitamin B-12) 1,000 MCG TAB PO SCH (10:12)
[2019-01-18] MEDS: DULoxetine 30 MG CAP PO SCH ×2 (10:12→20:39)
[2019-01-18] MEDS: Loratadine 10 MG TAB PO SCH (10:12)
[2019-01-18] MEDS: Folic Acid 1 MG TAB PO SCH (10:12)
[2019-01-18] MEDS: Carvedilol 3.125 MG TAB PO SCH ×2 (10:12→16:10)
[2019-01-18] MEDS: Sacubitril 49 MG/Valsartan 51 MG TABLET PO SCH (10:13)
[2019-01-18] MEDS ORDERED: Sodium Chloride 0.9% 500 ML IVPB SCH (12:15)
[2019-01-18] MEDS: Atorvastatin Calcium 20 MG TAB PO SCH (20:39)
[2019-01-18] MEDS: Sacubitril 24.5 MG/Valsartan 25.5 MG TABLET PO SCH (20:39)
[2019-01-18] MEDS: Melatonin 3 MG TAB PO PRN (20:40)
[2019-01-19 05:29] LABS: #Basophils 0.1 thou/uL (0.0-0.2); #Eosinphils 0.3 thou/uL (0.0-0.7); #Lymphocytes 2.7 thou/uL (1.20-3.40); #Monocytes 0.6 thou/uL (0.11-0.59); #Neutrophils 4.4 thou/uL (1.40-6.50); %Eosinophils 3.6 % (0.0-10.0); %Lymphocytes 33.8 % (21.0-51.0); %Monocytes 7.2 % (0.0-10.0); %Neutrophils 54.4 % (42.0-75.0); Hemoglobin 9.6 g/dL (12.0-16.0); Mean Corpuscular Hemoglobin 33.3 pg (27.0-31.0); Mean Platelet Volume 8.4 fL (7.4-10.4); Platelet Count 295 thou/uL (130-400); RBC Distribution Width 16.7 % (11.5-14.5); Red Blood Cell (RBC) Count 2.89 mill/uL (4.20-5.40); White Blood Cell (WBC) Count 8.1 thou/uL (4.8-10.8)
[2019-01-19 05:41] LABS: Anion Gap 12 mmol/L (10-20); BUN (Urea Nitrogen) 22 mg/dL (9.8-20.1); Calc. Creatinine Clearance 47 mL/min (70-130); Calcium 8.8 mg/dL (7.8-10.44); Carbon Dioxide 25 mmol/L (23-31); Chloride 106 mmol/L (98-107); Estimated GFR-MDRD 46; Glucose 137 mg/dL (83-110); Magnesium 1.9 mg/dL (1.6-2.6); Potassium 3.7 mmol/L (3.5-5.1); Sodium 139 mmol/L (136-145)
[2019-01-19] MEDS: Ferrous Sulfate 325 MG TAB PO SCH ×2 (10:16→16:36)
[2019-01-19] MEDS: Clopidogrel Bisulfate 75 MG TAB PO SCH (10:16)
[2019-01-19] MEDS: Folic Acid 1 MG TAB PO SCH (10:16)
[2019-01-19] MEDS: Cyanocobalamin (Vitamin B-12) 1,000 MCG TAB PO SCH (10:16)
[2019-01-19] MEDS: Aspirin Chewable 81 MG TAB PO SCH (10:16)
[2019-01-19] MEDS: DULoxetine 30 MG CAP PO SCH ×2 (10:16→20:38)
[2019-01-19] MEDS: Loratadine 10 MG TAB PO SCH (10:17)
[2019-01-19] MEDS: Gabapentin 300 MG CAP PO SCH ×2 (10:17→20:38)
[2019-01-19] MEDS: Carvedilol 3.125 MG TAB PO SCH ×2 (10:55→16:36)
[2019-01-19] MEDS: Sacubitril 24.5 MG/Valsartan 25.5 MG TABLET PO SCH ×2 (10:55→20:38)
--- NOTE | 2019-01-19 11:02 | PDOC.PN ---
- Subjective Encounter Start Date: 01/19/19 Encounter Start Time: 07:50 pt's had low BP yesterday and improved today after giving fluid, still BP on lower side, no dizziness, or dyspnea - Objective Resuscitation Status - Order Detail: 01/16/19 23:04 Resuscitation Status Routine Resuscitation Status: FULL: Full Resuscitation Discussed with: Patient CYNTHIA Reviewed: Yes Vital Signs & Weight: Vital Signs (12 hours) Temp Pulse Resp BP BP Pulse Ox 01/19/19 07:01 98.1 F 115 H 19 99/72 95 01/19/19 04:00 97.5 F L 94 18 94/71 93 L 01/19/19 00:00 98.2 F 117 H 18 94/63 94 L Weight Weight 172 lb 8 oz I&O: 01/18/19 01/19/19 01/20/19 06:59 06:59 06:59 Intake Total 1940 1095 Output Total 4200 700 Balance -2260 395 Result Diagrams: 01/19/19 05:03 01/19/19 05:03 EKG Reviewed by me: Yes Phys Exam - Physical Examination Constitutional: NAD HEENT: PERRLA, moist MMs, sclera anicteric Neck: no JVD, supple Respiratory: no wheezing, no rales, no rhonchi Cardiovascular: RRR, no significant murmur, no rub Gastrointestinal: soft, non-tender, no distention, positive bowel sounds Musculoskeletal: no edema, pulses present Neurological: non-focal, normal sensation Lymphatic: no nodes Psychiatric: normal affect, A&O x 3 Skin: no rash, normal turgor Dx/Plan (1) GIRALDO (dyspnea on exertion) Code(s): R06.09 - OTHER FORMS OF DYSPNEA Status: Acute (2) Hypokalemia Code(s): E87.6 - HYPOKALEMIA Status: Acute (3) CAD (coronary artery disease) Code(s): I25.10 - ATHSCL HEART DISEASE OF [place] CORONARY ARTERY W/O ANG PCTRS Status: Chronic Qualifiers: Comment: (4) Chronic obstructive lung disease Status: Chronic Qualifiers: (5) Chronic systolic heart failure, ACC/AHA stage C Code(s): I50.22 - CHRONIC SYSTOLIC (CONGESTIVE) HEART FAILURE Status: Chronic (6) Diabetes type 2, controlled Code(s): E11.9 - TYPE 2 DIABETES MELLITUS WITHOUT COMPLICATIONS Status: Chronic (7) Dyslipidemia Code(s): E78.5 - HYPERLIPIDEMIA, UNSPECIFIED Status: Chronic (8) Hypertension Code(s): I10 - ESSENTIAL (PRIMARY) HYPERTENSION Status: Chronic Qualifiers: (9) Macrocytic anemia Code(s): D53.9 - NUTRITIONAL ANEMIA, UNSPECIFIED Status: Chronic (10) Obesity (BMI 30.0-34.9) Code(s): E66.9 - OBESITY, UNSPECIFIED Status: Chronic (11) Stenosis, spinal, lumbar Code(s): M48.06 - SPINAL STENOSIS, LUMBAR REGION * DO NOT USE * Status: Chronic - Plan cont current plan of care * medication reviewed as below * symptomatic treatment * cardiology on case and will defer to meds adjustment to cardiology * ambulate as tolerated. Review of Systems - Review of Systems ENT: negative: Ear Pain, Ear Discharge, Nose Pain, Nose Discharge, Nose Congestion, Mouth Pain, Mouth Swelling, Throat Pain, Throat Swelling, Other Respiratory: negative: Cough, Dry, Shortness of Breath, Hemoptysis, SOB with Excertion, Pleuritic Pain, Sputum, Wheezing Cardiovascular: light headedness. negative: chest pain, palpitations, orthopnea , paroxysmal nocturnal dyspnea, edema, other Gastrointestinal: negative: Nausea, Vomiting, Abdominal Pain, Diarrhea, Constipation, Melena, Hematochezia, Other Genitourinary: negative: Dysuria, Frequency, Incontinence, Hematuria, Retention , Other Musculoskeletal: negative: Neck Pain, Shoulder Pain, Arm Pain, Back Pain, Hand Pain, Leg Pain, Foot Pain, Other Skin: negative: Rash, Lesions, Eduar, Bruising, Other - Medications/Allergies Allergies/Adverse Reactions: Allergies Allergy/AdvReac Type Severity Reaction Status Date / Time No Known Allergies Allergy Verified 12/24/18 02:28 Medications: Current Medications Acetaminophen (Tylenol) 650 mg PO Q4H PRN PRN Reason: Headache/Fever/Mild Pain (1-3) Hydrocodone Bitart/Acetaminophen (Howe 5/325) 1 tab PO Q6H PRN PRN Reason: Moderate Pain (4-6) Last Admin: 01/17/19 04:04 Dose: 1 tab Artificial Tears (Tears Naturale) 2 drop EA EYE PRN PRN PRN Reason: Dry Eyes Aspirin (Aspirin Chewable) 81 mg PO DAILY [facility] Last Admin: 01/19/19 10:16 Dose: 81 mg Atorvastatin Calcium (Lipitor) 20 mg PO HS [facility] Last Admin: 01/18/19 20:39 Dose: 20 mg Bisacodyl (Dulcolax) 10 mg [place] DAILYPRN PRN PRN Reason: Constipation Bisacodyl (Dulcolax) 10 mg PO DAILYPRN PRN PRN Reason: Constipation [facility] ([facility]) [facility] Last Admin: 01/19/19 10:55 Dose: Not Given Clopidogrel Bisulfate (Plavix) 75 mg PO DAILY [facility] Last Admin: 01/19/19 10:16 Dose: 75 mg Cyanocobalamin (Vitamin B-12) 1,000 mcg PO DAILY [facility] Last Admin: 01/19/19 10:16 Dose: 1,000 mcg Duloxetine HCl (Cymbalta) 30 mg PO BID [facility] Last Admin: 01/19/19 10:16 Dose: 30 mg Ferrous Sulfate (Feosol) [facility] Last Admin: 01/19/19 10:16 Dose: 325 mg Folic Acid (Folvite) 1 mg PO DAILY [facility] Last Admin: 01/19/19 10:16 Dose: 1 mg Gabapentin (Neurontin) 300 mg PO BID [facility] Last Admin: 01/19/19 10:17 Dose: 300 mg Guaifenesin (Robitussin Sf) 200 mg PO Q4H PRN PRN Reason: Cough Hydralazine HCl (Apresoline) 10 mg SLOW IVP Q4H PRN PRN Reason: SBP > 180 and HR < 70 Loperamide HCl (Imodium) 2 mg PO PRN PRN PRN Reason: Diarrhea/Loose Stools Loratadine (Claritin) 10 mg PO DAILY [facility] Last Admin: 01/19/19 10:17 Dose: 10 mg Melatonin (Melatonin) 4.5 mg PO HS PRN PRN Reason: Insomnia Last Admin: 01/18/19 20:40 Dose: 4.5 mg Mineral Oil/White Petrolatum (Eucerin Cream) 0 gm TOP BIDPRN PRN PRN Reason: Dry Skin Nitroglycerin (Nitrostat) 0.4 mg SL Q5MIN PRN PRN Reason: Chest Pain Ondansetron HCl (Zofran Odt) 4 mg PO Q6H PRN PRN Reason: Nausea/Vomiting Ondansetron HCl (Zofran) 4 mg IVP Q6H PRN PRN Reason: Nausea/Vomiting Pantoprazole Sodium (Protonix) 40 mg PO DAILY [facility] Last Admin: 01/19/19 10:17 Dose: 40 mg Sacubitril/Valsartan (Entresto 24.5 Mg-25.5 Mg Tablet) 1 tab PO BID [facility] Last Admin: 01/19/19 10:55 Dose: Not Given Senna/Docusate Sodium (Senokot S) 2 tab PO BID PRN PRN Reason: Constipation Sodium Chloride (Golden Nasal [place] 0.65%) 0 ml EA NARE QIDPRN PRN PRN Reason: Nasal Congestion Throat Lozenges (Cepastat Lozenges) 1 marisol PO Q2H PRN PRN Reason: Sore Throat Zolpidem Tartrate (Ambien) 5 mg PO HSPRN PRN PRN Reason: Insomnia
--- NOTE | 2019-01-19 12:02 | PQF ---
DATE: 01-19-19 ATTN: DR. ARLINE SANTIZO Please exercise your independent, professional judgment in responding to the clarification form. Clinical indicators are provided on the bottom of this form for your review Please check appropriate box(s): HEART FAILURE: A. TYPE: [ ] Systolic / HFrEF [ ] Diastolic / HFpEF [ ] Combined Systolic / Diastolic B. ACUITY [ ] Acute [ x ] Acute on Chronic [ ] Chronic [ ] Other diagnosis [ ] Unable to determine In addition, please specify: Present on Admission (POA): [ x ] Yes [ ] No [ ] Unable to determine For continuity of documentation, please document condition throughout progress notes and discharge summary. Thank You. 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 All Rights Reserved ANTONIETA [email or web address] Office: [phone] [place]
--- NOTE | 2019-01-19 19:16 | PDOC.CTH ---
Cardiology Progress Note - Subjective She is doing better. No evidence of bleeding. - Objective Vital Signs Temp Pulse Resp BP Pulse Ox 01/19/19 15:42 97.5 F L 122 H 18 109/66 95 01/19/19 12:27 98.3 F 110 H 20 102/64 95 Admit Weight 172 lb 8 oz Weight 172 lb 8 oz 01/18/19 01/19/19 01/20/19 06:59 06:59 06:59 Intake Total 1940 1095 980 Output Total 4200 700 700 Balance -2260 395 280 - Physical Examination General/Neuro: alert & oriented x3, NAD Neck: no JVD present Lungs: CTA, unlabored respirations Heart: RRR Abdomen: NT/ND Extremities: other: - Telemetry Telemetry Rhythm: NSR - Labs Result Diagrams: 01/19/19 05:03 01/19/19 05:03 Troponin/CKMB CK-MB (CK-2) 1.6 ng/mL (0-6.6) 01/16/19 18:15 Troponin I 0.115 ng/mL (< 0.028) H 01/17/19 01:13 - Assessment/Plan 1. CAD, s/p stent to LAD. 2. Anemia, likely acute blood loss. 3. Dilated CM EF at 30-35% on last echo 4. LBBB PLAN: - Continue Plavix alone. - Likely cause of anemia is being on both Brilinta and Plavix. - Continue other meds. - Cant tolerate BB due to bradycardia with coreg, long pauses in the past with coreg. If LV function not improved in next month will recommend a BiV AICD or PPM.
[2019-01-19] MEDS: Atorvastatin Calcium 20 MG TAB PO SCH (20:38)
[2019-01-19] MEDS: Melatonin 3 MG TAB PO PRN (22:41)
[2019-01-20 09:30] VITALS: BP 119/70; TEMP 97.8
[2019-01-20] MEDS: Loratadine 10 MG TAB PO SCH (10:56)
[2019-01-20] MEDS: DULoxetine 30 MG CAP PO SCH (10:56)
[2019-01-20] MEDS: Carvedilol 3.125 MG TAB PO SCH (10:56)
[2019-01-20] MEDS: Cyanocobalamin (Vitamin B-12) 1,000 MCG TAB PO SCH (10:57)
[2019-01-20] MEDS: Clopidogrel Bisulfate 75 MG TAB PO SCH (10:57)
[2019-01-20] MEDS: Gabapentin 300 MG CAP PO SCH (10:57)
[2019-01-20] MEDS: Ferrous Sulfate 325 MG TAB PO SCH (10:57)
[2019-01-20] MEDS: Folic Acid 1 MG TAB PO SCH (10:57)
[2019-01-20] MEDS: Aspirin Chewable 81 MG TAB PO SCH (10:57)
--- NOTE | 2019-01-20 11:38 | DIS ---
DATE OF ADMISSION: 01/16/2019 DATE OF DISCHARGE: 01/20/2019 PRIMARY CARE PHYSICIAN: Monisha Wells MD DISPOSITION: Home. PRIMARY DISCHARGE DIAGNOSES: 1. Dyspnea on exertion due to combined etiology of Brilinta as well as acute on chronic systolic congestive heart failure, improved. 2. Asymptomatic hypotension, resolved. 3. Anemia, status post one unit of transfusion. SECONDARY DISCHARGE DIAGNOSES: 1. Coronary artery disease. 2. Chronic obstructive pulmonary disease. 3. Chronic systolic heart failure, stage C. 4. Diabetes type 2. 5. Dyslipidemia. 6. Hypertension. 7. Macrocytic anemia. 8. Obesity. 9. Lumbar stenosis. PRIMARY PROCEDURE/OPERATION: None. RADIOLOGICAL INVESTIGATION: Chest x-ray showed no acute cardiopulmonary process. SIGNIFICANT LABORATORY DATA: WBC 8.1, hemoglobin 9.6, platelet 295. Creatinine 1.13, potassium 3.7, troponin 0.115. DISCHARGE MEDICATIONS: 1. Aspirin 81 mg p.o. daily. 2. Plavix 75 mg p.o. daily. 3. Cymbalta 30 mg b.i.d. 4. Neurontin 300 mg b.i.d. 5. Bruner 1 tablet q.6 hourly p.r.n. 6. Claritin 10 mg daily. 7. Zocor 10 mg at bedtime. 8. Coreg 3.125 mg b.i.d. 9. Vitamin B12 of 1000 mcg p.o. daily. 10. Ferrous sulfate 325 mg b.i.d. 11. Folic acid 1 mg daily. 12. Protonix 40 mg daily. 13. Crestor 1 tablet twice daily. CONTRAINDICATION: None. CODE STATUS: Full code. INPATIENT CUSTOMER SERVICE ATTENDANT: Dr. Souza and Cardiology group was following while in hospital. TEST RESULTS PENDING ON DISCHARGE: None. ALLERGIES: NO KNOWN DRUG ALLERGIES. DISCHARGE PLAN: Post hospital, the patient has appointment with Dr. Souza on January 26, 2019, at 11:00 a.m. The patient will follow up with [facility] Failure [facility], and the patient will make appointment with primary care physician. HOSPITAL COURSE: An 83-year-old female, who was admitted by Dr. Garcia. Please see his H and P for further details. This patient was presented with dyspnea on exertion. She did not have any hypoxia. She was taking Plavix and Brilinta by mistake since previous admission. Brilinta known to cause of dyspnea on exertion. That medication was discontinued. She had slightly elevated BNP. Her chest x- ray was not significantly congested, but with Lasix, the patient felt much better. She had mild systolic CHF exacerbation, which was precipitated by anemia. Her stool for guaiac was negative. She was given 1 unit of blood while in the hospital. We are suspecting that was related with combined use of Brilinta and Plavix and aspirin. The patient was given the option of doing colonoscopy and endoscopy while in hospital, but the patient did not want to go for the procedure at this point while in hospital. She rather wanted to wait until one month and then, she will decide for endoscopic procedure, if needed. At this point, she is hemodynamically stable. While in hospital, we noted that she had one time blood pressure low, which was related with increased dose of Entresto and that is why we reduced back to her regular Entresto dose. She was continued with Coreg, which she has tolerated while in hospital well. At this point, I spoke with Cardiology group and they are okay to discharge her home. At this point, their plan is to repeat echocardiography in months to see if she needs AICD placement or not. The patient is medically stable. I have seen and examined the patient bedside today. Plan of care discussed with the family member and they are okay to take her home. New medication prescription sent to her pharmacy. We started folic acid and B12 for macrocytic anemia. We have clarified her home medication and this medication reconciliation education given. The patient is stable for discharge today. Job ID: [id number] [facility]
--- NOTE | 2019-01-20 12:15 | PDOC.PN ---
- Subjective Encounter Start Date: 01/20/19 Encounter Start Time: 10:10 Patient seen and examined. No new complaints. No overnight events - Objective Resuscitation Status - Order Detail: 01/16/19 23:04 Resuscitation Status Routine Resuscitation Status: FULL: Full Resuscitation Discussed with: Patient CYNTHIA Reviewed: Yes Vital Signs & Weight: Vital Signs (12 hours) Temp Pulse Resp BP Pulse Ox 01/20/19 08:10 94 L 01/20/19 08:00 97.8 F 101 H 16 119/70 94 L 01/20/19 03:51 97.7 F 94 18 96/71 97 Weight Admit Weight 172 lb 8 oz Weight 172 lb 8 oz I&O: 01/19/19 01/20/19 01/21/19 06:59 06:59 06:59 Intake Total 1095 1220 Output Total 700 1600 Balance 395 -380 Result Diagrams: 01/19/19 05:03 01/19/19 05:03 EKG Reviewed by me: Yes Phys Exam - Physical Examination Constitutional: NAD HEENT: PERRLA, moist MMs, sclera anicteric Neck: no JVD, supple Respiratory: no wheezing, no rales, no rhonchi Cardiovascular: RRR, no significant murmur, no rub Gastrointestinal: soft, non-tender, no distention, positive bowel sounds Musculoskeletal: no edema, pulses present Neurological: non-focal, normal sensation Psychiatric: normal affect, A&O x 3 Skin: no rash, normal turgor Dx/Plan (1) GIRALDO (dyspnea on exertion) Code(s): R06.09 - OTHER FORMS OF DYSPNEA Status: Acute (2) Hypokalemia Code(s): E87.6 - HYPOKALEMIA Status: Acute (3) CAD (coronary artery disease) Code(s): I25.10 - ATHSCL HEART DISEASE OF [place] CORONARY ARTERY W/O ANG PCTRS Status: Chronic Qualifiers: Comment: (4) Chronic obstructive lung disease Status: Chronic Qualifiers: (5) Chronic systolic heart failure, ACC/AHA stage C Code(s): I50.22 - CHRONIC SYSTOLIC (CONGESTIVE) HEART FAILURE Status: Chronic (6) Diabetes type 2, controlled Code(s): E11.9 - TYPE 2 DIABETES MELLITUS WITHOUT COMPLICATIONS Status: Chronic (7) Dyslipidemia Code(s): E78.5 - HYPERLIPIDEMIA, UNSPECIFIED Status: Chronic (8) Hypertension Code(s): I10 - ESSENTIAL (PRIMARY) HYPERTENSION Status: Chronic Qualifiers: (9) Macrocytic anemia Code(s): D53.9 - NUTRITIONAL ANEMIA, UNSPECIFIED Status: Chronic (10) Obesity (BMI 30.0-34.9) Code(s): E66.9 - OBESITY, UNSPECIFIED Status: Chronic (11) Stenosis, spinal, lumbar Code(s): M48.06 - SPINAL STENOSIS, LUMBAR REGION * DO NOT USE * Status: Chronic - Plan cont current plan of care, plan discussed w/ family * medication reviewed as below * symptomatic treatment * see discharge toñito.
[2019-01-20] MEDS: Sacubitril 24.5 MG/Valsartan 25.5 MG TABLET PO SCH (13:13)
== END 2019-01-20 14:37 | disposition home or self-care (01) | DRG 291 ==
LOC: ERS 17:44 → 2NO 19:40
PROVIDERS: ADMIT Internal Medicine; ATTEND Internal Medicine
PROC: 30233N1 Transfusion of Nonautologous Red Blood Cells into Peripheral Vein, Percutaneous Approach (ICD-10-PCS; principal; 2019-01-17)
DX: I13.0 Hypertensive heart and chronic kidney disease with heart failure and stage 1 through stage 4 chronic kidney disease, or unspecified chronic kidney disease (principal); I50.23 Acute on chronic systolic (congestive) heart failure; D62 Acute posthemorrhagic anemia; Z95.5 Presence of coronary angioplasty implant and graft; Z79.02 Long term (current) use of antithrombotics/antiplatelets; Z79.899 Other long term (current) drug therapy; I25.10 Atherosclerotic heart disease of native coronary artery without angina pectoris; K21.9 Gastro-esophageal reflux disease without esophagitis; N18.3 Chronic kidney disease, stage 3 (moderate); J44.9 Chronic obstructive pulmonary disease, unspecified; Z85.3 Personal history of malignant neoplasm of breast; G62.9 Polyneuropathy, unspecified; Z79.82 Long term (current) use of aspirin; R00.0 Tachycardia, unspecified; R79.89 Other specified abnormal findings of blood chemistry; E87.6 Hypokalemia; E66.9 Obesity, unspecified; M48.061 Spinal stenosis, lumbar region without neurogenic claudication; Z90.49 Acquired absence of other specified parts of digestive tract; I25.5 Ischemic cardiomyopathy; E11.22 Type 2 diabetes mellitus with diabetic chronic kidney disease; I95.9 Hypotension, unspecified; T45.525A Adverse effect of antithrombotic drugs, initial encounter; T39.015A Adverse effect of aspirin, initial encounter; D53.9 Nutritional anemia, unspecified; Z68.33 Body mass index [BMI] 33.0-33.9, adult
CPT/HCPCS: 36415; 36430; 71045; 80048; 80053; 82274; 82553; 83735; 83880; 84484; 85025; 86850; 86900; 86901; 93005; 96365; 96366; J3480; P9016

== ENCOUNTER 2019-05-26 10:51 | Outpatient (CLI) | payer MEDICARE, BC ==
--- NOTE | 2019-05-26 14:11 | CT ---
CT Thoracic Spine WO Con History: M [age] thoracic radiculitis Comparison: Chest radiograph January 16, 2019 Findings: Moderate vascular calcifications of the aorta. Small left gastric lymph node not enlarged b y size criteria. Severe centrilobular emphysema. Few groundglass opacities right lower lobe with associated tubular br onchiectasis. No pneumothorax. No significant effusion. Chronic superior endplate deformity at T11. No acute fracture of the thoracic spine. Chronic superior endplate compression fracture at T5 with involvement of the anterior vertebral body with 50% height loss. Multilevel moderate facet arthrosis. 3 mm T2 over T3 anterolisthesis. Levels are as follows: T1/T2: Mild degenerative disc space height loss. Moderate facet arthropathy. Mild bilateral neural fo raminal narrowing. T2/T3: 3 mm anterolisthesis due to severe right and moderate left facet arthropathy. Moderate to bre re right and moderate left neural foraminal narrowing due to osteophyte formation. T3/T4: Mild degenerative disc space height loss. Moderate hypertrophic facet arthropathy. Mild bilate ral neural foraminal narrowing. T4/T5: Moderate degenerative disc space height loss. Moderate facet arthropathy. No significant neura l foraminal or spinal canal narrowing. T5/T6: Mild degenerative disc space height loss. Moderate facet arthropathy. No significant neural fo raminal or spinal canal narrowing. T6/T7: Moderate facet arthropathy. No neural foraminal or spinal canal narrowing. T7/T8: Mild degenerative disc space height loss. Circumferential disc bulge. No significant neural fo raminal or spinal canal narrowing. T8/T9: Moderate degenerative disc space height loss. Circumferential disc osteophyte complex. Moderat e facet arthropathy. No significant neural foraminal narrowing. T9/T10: Moderate general disc space height loss. Moderate facet arthropathy. Circumferential disc ost eophyte complex greatest in the subsequent foraminal zones. Moderate right and mild left neural foraminal narrowing. Spinal canal is narrowed to approximately 8 mm. T10/T11: Moderate degenerative disc space height loss. Broad-based posterior disc osteophyte complex. Minimal effacement of ventral CSF space and spinal canal measures approximate 9 mm. Moderate left and mild right neural foraminal narrowing. T11/T12: Circumferential disc bulge. Moderate facet arthropathy. Moderate to severe right and moderat e left neural foraminal narrowing. Spinal canal is narrowed to 9 mm. T12/L1: Circumferential disc bulge. Spinal canal is narrowed to approximately 7 mm. Moderate facet ar thropathy. Moderate right and mild left neural foraminal narrowing. Impression: 1. No acute fracture of the thoracic spine. 2. Multilevel spondylosis with neural foraminal and spinal canal narrowing as described. 3. Multiple old compression deformities involving the superior endplates and anterior vertebral sade s. 4. Degenerative anterolisthesis, 3 mm, T2 over T3.
--- NOTE | 2019-05-26 14:21 | CT ---
CT Lumbar Spine WO Con History: M 48.16 lumbar spondylosis Comparison: Lumbar spine CT 2015 Findings: Aortic contour is nonaneurysmal. Moderate facet calcifications. No hydronephrosis. 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 High-grade dextro scoliosis. Within the L1 vertebra there is cemented the right compression deformity with 50% superior endplate height loss and anterior height loss. There is a superior endplate compression fracture at L2 approximately 40% anterior height loss. Levels are as follows: L1/L2: Stress high-grade circumferential disc osteophyte complex. Moderate fac et arthropathy. Moderate to severe bilateral neural foraminal narrowing. L2/L3: High-grade degenerative disc space height loss on the left with scoliotic changes. Circumferen tial disc osteophyte complex. Mild right and severe left neural foraminal narrowing. Severe left and mild right facet arthropathy. Spinal canal is narrowed to approximately 6 mm. L3/L4: Mild degenerative disc space height loss. Circumferential disc osteophyte complex. Moderate to severe right and moderate left neural foraminal narrowing. Spinal canal is narrowed to approximately 8 mm. L4/L5: Severe degenerative disc space height loss. High-grade disc osteophyte complex, circumferentia l. Severe left and right neural foraminal narrowing. Moderate left and severe right facet arthropathy. Spinal canal is narrowed to approximately 6 mm. L5/L6: Severe degenerative disc space height loss. Circumferential disc osteophyte complex. Severe ri ght and moderate left neural foraminal narrowing. Severe bilateral facet arthropathy. Spinal canal is narrowed to approximately 7 mm. L6/S1: Posterior spinal fusion hardware discectomy change. Large right subsequent foraminal and extra foraminal disc osteophyte complex. Severe right neural foraminal narrowing. Abnormal narrowing of the interspinous space throughout the lumbar spine with subcortical sclerosis a nd remodeling. Right hemilaminectomy changes at L4-L6. Impression: Multilevel severe degenerative changes as described with neural foraminal and spinal josse l narrowing.
== END 2019-05-26 10:52 | disposition home or self-care (01) ==
LOC: BICCT 10:51
PROVIDERS: ATTEND Nurse Practitioner Family
DX: M47.816 Spondylosis without myelopathy or radiculopathy, lumbar region (principal); M47.24 Other spondylosis with radiculopathy, thoracic region; M48.061 Spinal stenosis, lumbar region without neurogenic claudication; M48.07 Spinal stenosis, lumbosacral region; M48.05 Spinal stenosis, thoracolumbar region; M48.04 Spinal stenosis, thoracic region; M43.14 Spondylolisthesis, thoracic region
CPT/HCPCS: 36415; 72128; 72131; 85025

== ENCOUNTER 2019-07-20 13:21 | Outpatient (CLI) | payer MEDICARE, BC ==
--- NOTE | 2019-07-20 16:46 | MMO ---
Bilateral MAMMO Bilat Screen [facility]. CLINICAL HISTORY: Patient is 83 years old and is seen for screening. The patient has a history of malignant (generic) at age 75. 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 VIEWS: The views performed were: bilateral craniocaudal with tomosynthesis and bilateral mediolateral oblique with tomosynthesis. FILMS COMPARED: The present examination has been compared to prior imaging studies performed at [facility] on 02/25/2015, 03/07/2016, 04/18/2017 and 05/15/2018. This study has been interpreted with the assistance of computer-aided detection. MAMMOGRAM FINDINGS: There are scattered fibroglandular densities. Finding 1: There is a stable intramammary lymph node seen in the right breast. There are no suspicious masses, calcifications or areas of architectural distortion. Finding 2: There is a stable post-surgical scar seen in the left breast. There are no suspicious masses, suspicious calcifications, or new areas of architectural distortion. IMPRESSION: THERE IS NO MAMMOGRAPHIC EVIDENCE OF MALIGNANCY. A ROUTINE FOLLOW-UP MAMMOGRAM IN 1 YEAR IS RECOMMENDED. THE RESULTS OF THIS EXAM WERE SENT TO THE PATIENT. ACR BI-RADS Category 2 - Benign finding MAMMOGRAPHY NOTE: 1. A negative mammogram report should not delay a biopsy if a dominant of clinically suspicious mass is present. 2. Approximately 10% to 15% of breast cancers are not detected by mammography. 3. Adenosis and dense breasts may obscure an underlying neoplasm. Reported by: LINDA KAUR MD Electonically Signed: [id number]
== END 2019-07-20 13:22 | disposition home or self-care (01) ==
LOC: BICMAMMO 13:21
PROVIDERS: ATTEND Family Medicine
DX: Z12.31 Encounter for screening mammogram for malignant neoplasm of breast (principal); Z85.3 Personal history of malignant neoplasm of breast; Z98.890 Other specified postprocedural states
CPT/HCPCS: 77063; 77067

== ENCOUNTER 2019-08-03 13:39 | Outpatient (CLI) | payer MEDICARE, BC ==
--- NOTE | 2019-08-03 14:31 | BD ---
DEXA SCAN: PROVIDED CLINICAL HISTORY: Screening postmenopausal. FINDINGS: BMD (g/cm2) Right femoral neck: 0.775 T-Score: -0.7 Total: 1.011 T-Score: 0.6 Left femoral neck: 0.780 T-Score: -0.6 Total: 1.016 -Score: 0.6 IMPRESSION: Calculated bone mineral density meets the ratio criteria for normal. Transcribed Date/Time: 08/03/2019 2:58 PM
== END 2019-08-03 13:40 | disposition home or self-care (01) ==
LOC: BICMAMMO 13:39
PROVIDERS: ATTEND Physician Assistant
DX: Z13.820 Encounter for screening for osteoporosis (principal); Z78.0 Asymptomatic menopausal state
CPT/HCPCS: 77080

== ENCOUNTER 2019-09-02 06:49 | Emergency (ER) | payer MEDICARE, BC ==
[2019-09-02 07:36] LABS: #Eosinphils 0.1 thou/uL (0.0-0.7); #Lymphocytes 1.7 thou/uL (1.20-3.40); #Monocytes 0.7 thou/uL (0.11-0.59); #Neutrophils 8.4 thou/uL (1.40-6.50); %Eosinophils 1.3 % (0.0-10.0); %Lymphocytes 15.7 % (21.0-51.0); %Neutrophils 77.1 % (42.0-75.0); Hemoglobin 11.5 g/dL (12.0-16.0); Mean Corpuscular HGB CONC 33.5 g/dL (32.0-36.0); Mean Corpuscular Hemoglobin 32.7 pg (27.0-31.0); Mean Corpuscular Volume 97.4 fL (78.0-98.0); Platelet Count 253 thou/uL (130-400); RBC Distribution Width 14.4 % (11.5-14.5); Red Blood Cell (RBC) Count 3.51 mill/uL (4.20-5.40); White Blood Cell (WBC) Count 10.9 thou/uL (4.8-10.8)
[2019-09-02 07:44] LABS: INR-International Normal Ratio 0.9; PTT 34.4 SEC (22.9-36.1); Prothrombin Time 11.9 SEC (12.0-14.7)
[2019-09-02 07:58] LABS: ALT (SGPT) 11 U/L (8-55); AST (SGOT) 17 U/L (5-34); Albumin 4.2 g/dL (3.4-4.8); Alkaline Phosphatase 53 U/L (40-110); Anion Gap 13 mmol/L (10-20); BUN (Urea Nitrogen) 29 mg/dL (9.8-20.1); Bilirubin, Total 0.4 mg/dL (0.2-1.2); Calc. Creatinine Clearance 0 mL/min (70-130); Calcium 8.8 mg/dL (7.8-10.44); Carbon Dioxide 28 mmol/L (23-31); Chloride 100 mmol/L (98-107); Estimated GFR-MDRD 21; Globulin 2.8 g/dL (2.4-3.5); Glucose 153 mg/dL (83-110); Sodium 137 mmol/L (136-145)
--- NOTE | 2019-09-02 08:00 | RAD ---
Exam: Chest one view HISTORY:Pain. Trauma. Fall. Comparison: 01/16/2019 FINDINGS: Cardiac silhouette:Enlarged cardiac silhouette. Pacemaker: Right sided transvenous defibrillator with lead positioned in the right atrium, right vent ricle and coronary sinus. Aorta: Atherosclerosis Pulmonary vessels: Normal Costophrenic angles: Clear LUNGS: Chronic changes lung bases are suspected. No masses or consolidation. Pneumothorax: None Osseous abnormalities: None IMPRESSION: No acute cardiopulmonary process. Atherosclerosis.
--- NOTE | 2019-09-02 08:36 | CT ---
CT ABDOMEN WITHOUT CONTRAST: CT PELVIS WITHOUT CONTRAST: CT LUMBAR SPINE LIMITED: HISTORY: Fall. Pain. Trauma. Hit rib cage on nightstand. FINDINGS: ABDOMEN Lungs: Chronic changes in the lung bases. Heart: Cardiomegaly. No significant pericardial effusion. Aorta: Atherosclerosis of a nonaneurysmal aorta. Solid organs: Limited evaluation due to lack of IV contrast. Grossly no solid organ abnormality. No g astrohepatic, retrocrural or periportal lymphadenopathy. Mesentery: No mesenteric mass, lymphadenopathy, free air or fluid. Surgical clips in the right abdomi nal mesentery are noted. Kidneys: Nonobstructing intrarenal calculi in the left and right intrarenal collecting system. Bilate rally no hydronephrosis or perinephric fat stranding. Bilateral ureters have a normal caliber. No hydroureter, perirenal fat stranding or ureterolithiasis. Limited evaluation element canal due to lack of oral contrast. No evidence of bowel obstruction. Ileo cecal junction is unremarkable. Appendix is not appreciated. Nevertheless no inflammation at the cecal apex. Descending colon and sigmoid colon diverticulosis. No evidence of diverticulitis. PELVIS Uterus and adnexal structures: Unremarkable. No pelvic mass, lymphadenopathy, free air or free fluid . Osseous structures: The visualized inferior right bony thorax demonstrates a slightly displaced later al right rib, presumed to be the 9th rib. Additional fractures are noted involving the right 7th, 8th and 10th through 12th ribs. There is a small focus of subcutaneous emphysema in the lateral right chest wall. There is evidence of posterior right flank subcutaneous fat stranding, likely traumatic. There are no left rib fractures. Bony pelvis: Intact. LUMBAR SPINE Lumbar fusion changes at the lumbosacral junction. Multilevel vacuum disc phenomenon. Acute lumbar sp ine fracture is not appreciated. Previous kyphoplasty/vertebroplasty change at T12. Mild loss of vertebral body height at T10 with endplate sclerosis suggesting chronicity. There is mild rightward c urvature of the upper lumbar spine. IMPRESSION: Multiple right rib fractures. Better interrogation with a chest CT may be beneficial. Transcribed Date/Time: 09/02/2019 8:52 AM
[2019-09-02] MEDS ORDERED: Morphine 2 MG/ML SYRINGE ONE (11:09)
[2019-09-02] MEDS ORDERED: Morphine 4 MG/ML VIAL ONE (11:09)
[2019-09-02] MEDS ORDERED: Morphine 10 MG/ML VIAL ONE (11:10)
[2019-09-02] MEDS ORDERED: HYDROcodone/Acetaminophen 10/325 mg Tablet ONE (13:43)
== END 2019-09-02 15:06 ==
LOC: ERS 06:49
DX: S22.41XA Multiple fractures of ribs, right side, initial encounter for closed fracture (principal); I10 Essential (primary) hypertension; E11.9 Type 2 diabetes mellitus without complications; Z87.891 Personal history of nicotine dependence; Z79.891 Long term (current) use of opiate analgesic; Z79.899 Other long term (current) drug therapy; W19.XXXA Unspecified fall, initial encounter
CPT/HCPCS: 36415; 71045; 74176; 80053; 85025; 85610; 85730; J2270

== ENCOUNTER 2019-09-03 04:24 | Inpatient (IN) | payer MEDICARE, BC ==
[2019-09-03] MEDS ORDERED: Ondansetron PF 4 MG/2 ML Vial ONE (04:35)
[2019-09-03] MEDS ORDERED: Morphine 2 MG/ML SYRINGE ONE (04:35)
[2019-09-03 05:19] LABS: #Basophils 0.1 thou/uL (0.0-0.2); #Lymphocytes 1.2 thou/uL (1.20-3.40); #Monocytes 0.4 thou/uL (0.11-0.59); #Neutrophils 7.5 thou/uL (1.40-6.50); %Basophils 0.7 % (0.0-1.0); %Eosinophils 0.1 % (0.0-10.0); %Lymphocytes 12.7 % (21.0-51.0); %Monocytes 4.3 % (0.0-10.0); %Neutrophils 82.2 % (42.0-75.0); Hemoglobin 11.4 g/dL (12.0-16.0); Mean Corpuscular HGB CONC 33.3 g/dL (32.0-36.0); Mean Corpuscular Hemoglobin 32.4 pg (27.0-31.0); Mean Corpuscular Volume 97.3 fL (78.0-98.0); Mean Platelet Volume 8.2 fL (7.4-10.4); Platelet Count 250 thou/uL (130-400); RBC Distribution Width 14.5 % (11.5-14.5); Red Blood Cell (RBC) Count 3.52 mill/uL (4.20-5.40); White Blood Cell (WBC) Count 9.1 thou/uL (4.8-10.8)
[2019-09-03] MEDS ORDERED: HYDROcodone/Acetaminophen 5/325 mg Tablet ONE (05:22)
[2019-09-03 05:38] LABS: ALT (SGPT) 12 U/L (8-55); AST (SGOT) 20 U/L (5-34); Alkaline Phosphatase 55 U/L (40-110); Anion Gap 16 mmol/L (10-20); BUN (Urea Nitrogen) 39 mg/dL (9.8-20.1); Bilirubin, Total 0.6 mg/dL (0.2-1.2); Calc. Creatinine Clearance 0 mL/min (70-130); Calcium 9.1 mg/dL (7.8-10.44); Carbon Dioxide 31 mmol/L (23-31); Chloride 97 mmol/L (98-107); Estimated GFR-MDRD 14; Globulin 2.9 g/dL (2.4-3.5); Glucose 182 mg/dL (83-110); Potassium 4.6 mmol/L (3.5-5.1); Protein, Total 6.9 g/dL (6.0-8.3); Sodium 139 mmol/L (136-145)
[2019-09-03] MEDS ORDERED: Aspirin Chewable 81 MG TAB ONE (05:55)
[2019-09-03 06:01] LABS: Bilirubin Negative (Negative); Blood, Urine Negative (Negative); Clarity Clear (Clear); Glucose, Urine (Dipstick) Normal (Negative); Leukocyte Negative Leu/uL (Negative); Mucous/LPF Rare LPF (<2+); Nitrite Negative (Negative); Protein, Urine (Dipstick) 30 mg/dL (Neg-Trace); RBC/HPF 0-3 HPF (0-3); Squamous Epithelial 0-3 HPF (0-3); Urobilinogen Normal mg/dL (Less than 2)
[2019-09-03 06:02] LABS: Bacteria/HPF 1+ HPF (None Seen)
[2019-09-03 06:14] LABS: CKMB 11.8 ng/mL (0-6.6)
[2019-09-03] MEDS ORDERED: Bisacodyl 10 MG SUPP PR PRN (06:45)
[2019-09-03] MEDS ORDERED: Senokot S 8.6-50 MG TAB PO PRN (06:45)
[2019-09-03] MEDS ORDERED: Acetaminophen 325 MG TAB PO PRN (06:45)
--- NOTE | 2019-09-03 07:55 | RAD ---
XR Chest 1 View Portable History: Dyspnea Comparison: Radiograph prior day Findings: Heart size is enlarged. 3-lead AICD/pacer leads are similar. Left axillary surgical clips. Poorly visualized minimally displaced right posterior lateral lower rib fractures. Right peripheral airspace opacity with small effusion. The peripheral right lower lobe calcified granuloma is not well seen. Impression: Findings suggestive of passive atelectasis due to rib fractures with small effusion.
--- NOTE | 2019-09-03 08:33 | CT ---
CT CHEST WITHOUT CONTRAST CLINICAL INDICATION: Chest pain. Right-sided rib fractures. Fall one day ago on right side. COMPARISON: CTA chest on 07/08/[address] abdomen on 09/02/2019 FINDINGS: Aorta: Limited evaluation of the vascular structures due to the lack of intravenous contrast. Dense v ascular calcifications are seen in the thoracic aorta as well as involving the coronary arteries. Lungs: Emphysematous and chronic lung changes are again seen predominantly in the upper lobes. Small right pleural effusion with consolidation at the right lung base is present. Area of mild consolidation is probably due to passive atelectasis. Although, pneumonia versus aspiration pneumonit is cannot be entirely excluded. No pneumothorax is identified. There is calcification seen at the right lung base probably due to calcified granuloma. Mediastinum: No mediastinal hematoma is seen, and there is no lymphadenopathy. There is a hypodense s moothly marginated structure again seen at the anteromedial right lung base adjacent to the pericardium. This likely represents a pericardial cyst. A multilead right subclavian AICD device is noted in place. Thyroid gland: Grossly normal nonenhanced CT appearance Osseous structures: As noted on recent CT abdomen, there are right-sided rib fractures present. A sub tle nondisplaced right lateral eighth rib fracture is noted with a minimally fracture involving the posterolateral right ninth rib as well as a 2 part fracture involving the right posteri or 10th rib. There is slight separation of traction fragments involving the posterior right 11th rib fracture. Nondisplaced right 12th rib fracture is present. Adjacent subcutaneous emphysema is see n near the level of the mildly fracture of the right ninth rib. Vertebroplasty changes at L1 vertebral body are noted. Stable remote compression fractures of T5 and T11 vertebral bodies are again present there is stable anterolisthesis of T2 on T3. Multilevel degenerative changes are again present in the spine. Chest wall: There is increased density left breast with area of soft tissue density and associated ca lcification seen in the left breast. Mammogram on 04/18/2017 reported stable area of architectural distortion and postsurgical scar in the left breast. Surgical clips are seen in the left axilla. Upper abdomen: Calcified granulomata are seen in the liver and spleen. IMPRESSION: 1. Lower right-sided rib fractures without pneumothorax. There is a small right pleural effusion and subcutaneous emphysema. 2. Mild consolidation at the right lung base probably attributable to atelectasis. However, aspiratio n pneumonitis or pneumonia cannot be entirely excluded. 3. Chronic lung changes and evidence of COPD. 4. Dense vascular calcifications.
[2019-09-03] MEDS: Sodium Chloride 0.9% 1,000 ML IV SCH ×2 (08:35→18:07)
[2019-09-03] MEDS: Aspirin Chewable 81 MG TAB PO SCH (09:31)
[2019-09-03] MEDS: Enoxaparin Sodium 30 MG/0.3 ML SYRINGE SC SCH (09:31)
[2019-09-03] MEDS: DULoxetine 30 MG CAP PO SCH ×2 (09:31→20:20)
[2019-09-03] MEDS: Cyanocobalamin (Vitamin B-12) 1,000 MCG TAB PO SCH (09:32)
[2019-09-03] MEDS: Pantoprazole 40 MG VIAL IVP SCH (09:32)
[2019-09-03 09:49] VITALS: BMI 35.3
[2019-09-03 09:58] LABS: Troponin I 2.897 ng/mL (< 0.028)
[2019-09-03 10:06] LABS: Critical Call Chem Troponin I RESULT DECREASING; Troponin I 2.883 ng/mL (< 0.028)
--- NOTE | 2019-09-03 10:55 | HP ---
PRESENTING COMPLAINT: Shortness of breath and hypoxia. HISTORY OF PRESENT ILLNESS: The patient with a past medical history of coronary artery disease status post PCI, hyperlipidemia, chronic kidney disease, hypertension, diabetes mellitus, left bundle block, status post AICD pacemaker placement, was at a rehabilitation facility. As per patient, yesterday she was trying to get out of the bed. She fell and hit her chest to the table. The patient whole day yesterday was complaining only of pain on movement. At rest, she feels fine. Also felt nauseous at that time. Last night, the patient got shortness of breath and oxygen drop and was sent to the emergency room where she was found to have a positive troponins and acute kidney injury. As per daughter, since fall whole yesterday, she was peeing less urine, however, denied any fever, any cough, runny nose, stuffy nose, or sore throat. Denies vomiting, diarrhea, or constipation. Denies urinary complaints. Appetite was good. Denies abdominal pain. Initial workup in the emergency room showed right 8 to 12 rib fractures with atelectasis and pleural effusion. The patient admitted to ICU and also shows positive troponins and acute kidney injury, being evaluated by Nephrology and Cardiology. REVIEW OF SYSTEMS: As mentioned above. PAST MEDICAL HISTORY: As mentioned above. PAST SURGICAL HISTORY: History of spine surgery, history of lumpectomy, history of herniorrhaphy, history of parathyroidectomy, history of appendicectomy, and history of knee surgery. SOCIAL HISTORY: Denies smoking, alcohol abuse, or drug abuse. ALLERGIES: NONE. MEDICATIONS: Simvastatin, gabapentin, duloxetine, [place], ferrous sulfate, Entresto, aspirin, clopidogrel, loratadine, carvedilol, cyanocobalamin, folic acid, and pantoprazole. PHYSICAL EXAMINATION: VITAL SIGNS: Temperature 97.9, pulse 89, respiration 18, oxygen saturation 93% on nasal cannula, and blood pressure 90/60. GENERAL: The patient lying in bed comfortably, not in any distress. HEENT: Conjunctivae are normal. Oral mucosa dry. NECK: Supple. No JVD. No lymphadenopathy. CHEST: Normal vesicular breathing. Increased tender on the right side of the chest on movement. Decreased air entry bilateral lower lung bustamante. HEART: Sounds are normal. ABDOMEN: Soft, benign, nontender with no megaly. EXTREMITIES: Negative edema of feet. DIAGNOSTIC STUDIES: EKG, pacemaker rhythm, Q-wave inversion V1 and V2. LABORATORY DATA: CBC unremarkable except hemoglobin 11.4. CMP unremarkable except creatinine 3.13, baseline creatinine 1.3. CPK 432, CK-MB 11.8, troponin 1 is 0.265, 2 is 0.883. ProBNP 619. CBC unremarkable. UA; hyaline casts 21-50. Urine bacteria 1+, white blood cells 4-6. IMAGING STUDIES: Chest x-ray; findings suggestive of passive atelectasis due to rib fractures with small effusion. CT chest; impression, lower right-sided rib fractures without pneumothorax. There is small right pleural effusion and subcutaneous emphysema. Mild consolidation at the right lung base, probably attributed to atelectasis, however, aspiration pneumonitis or pneumonia cannot be entirely excluded. Chronic lung changes and evidence of COPD and dense vascular calcification. IMPRESSION: 1. Acute hypoxemic respiratory failure, most likely secondary to right sided rib fractures from 8 through 12 with atelectasis and effusion. The patient currently saturating 93% on nasal cannula. We will continue incentive spirometry, pulmonary evaluation. Continue pain medication as needed. We will hold antibiotics at present. 2. Borderline low blood pressure, possibly related to dehydration with acute kidney injury. Continue gentle fluids. Monitor vitals. Doubt sepsis. 3. Positive troponin, possible demand supply mismatch secondary to fall. Cardiology has been consulted. Discussed with Cardiology. Recommending conservative management at present. We will continue antiplatelet therapy and hypertensive medications once blood pressure is stable. 4. Acute kidney injury with baseline chronic kidney disease stage 3. Continue fluids. Monitor BMP. Nephrology been consulted. 5. Diabetes mellitus. We will continue monitoring blood sugar. 6. History of ischemic cardiomyopathy status post automatic implantable cardioverter defibrillator pacemaker placement. 7. Deep venous thrombosis and gastrointestinal prophylaxis. PLAN: Discussed with the patient, daughter and nursing staff. Advance directive discussed. Patient is a full code. Job ID: [id number]
--- NOTE | 2019-09-03 11:22 | CON ---
DATE OF CONSULTATION: HISTORY OF PRESENT ILLNESS: Ms. Buck is an 83-year-old white female, who was admitted for shortness of breath. She was transferred from the [place] rehab with low O2 saturation. Initial chest x-ray did not show overt CHF. She has also history of a fall and CT scan of the chest showed multiple rib fractures. We are now being consulted for her acute kidney injury. Please note, the patient has been on diuretics and in the past, has been taking sacubitril. We are here for further evaluation of her acute kidney injury. The patient was last seen in the [facility] a year ago and at that time, her creatinine was towards having a baseline of 1.15. REVIEW OF SYSTEMS: Mild shortness of breath. Positive for rib, chest pain. No syncopal episode. No productive cough. No fever or chills. No gross hematuria. No dysuria. No urinary frequency. No productive cough. No fever or chills. Appetite and energy level are decreased. No headache. No syncopal episode. No hemoptysis. No hematochezia. No melena. HOME MEDICATIONS: Included the followin. Simvastatin 10 mg tablet at bedtime. 2. Sacubitril/valsartan - 24.5/25.5 one tablet b.i.d. 3. Protonix 40 mg tablet daily. 4. Loratadine 10 mg daily. 5. Hydrocodone q.6 p.r.n. 6. Folic acid 1 mg daily. 7. Cymbalta 30 mg p.o. b.i.d. 8. Clopidogrel 75 mg daily. 9. Carvedilol 3.125 mg once a day. 10. Aspirin one tablet once a day. PAST MEDICAL HISTORY: Left breast cancer - remission, hyperlipidemia, chronic renal failure, hypertensive nephropathy, DJD, hypertension, type 2 diabetes mellitus, osteoporosis, and chronic vertigo. PAST SURGICAL HISTORY: Status post appendectomy, status post colonoscopy, status post left partial knee replacement, status post left breast lumpectomy, and status post left breast biopsy. SOCIAL HISTORY: Currently in [facility]. She is , two children. Smoked for 40 years, less than half a pack a day. No alcohol. No IV drug abuse. No blood transfusion. 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 ALLERGIES: NONE. TRAUMA: None. IMMUNIZATION: Up-to-date. HOSPITALIZATIONS: Please see past medical history. FAMILY HISTORY: No family history of ESRD. PHYSICAL EXAMINATION: VITAL SIGNS: Blood pressure is noted at 80/60 and heart rate 70. GENERAL: The patient is awake, supine, comfortable, not in overt distress. SKIN: Adequate turgor. HEENT: She has pinkish conjunctivae. Anicteric sclerae. NECK: No neck mass. No carotid bruits. No JVD. CHEST: No deformities. LUNGS: Clear breath sounds. No wheezing. No crackles. HEART: Normal sinus rhythm. No murmur. No gallops. No rubs. ABDOMEN: Globular, soft, and nontender. No masses. EXTREMITIES: No edema. No deformities. LABORATORY DATA: On September 03, 2019; sodium 139, potassium 4.6, chloride 97, carbon dioxide 31, BUN 39, creatinine 3.13, glucose 182. AST 20, ALT is 12, CK 432, and albumin is 4.0. Troponin I is 1.265. Chest x-ray of September 03, 2019, shows there is no overt CHF with the patient. There is some atelectasis and there is a calcified granuloma in right lower lobe. CT scan of the chest on September 02, 2019, multiple rib fractures. ASSESSMENT AND PLAN: 1. Acute kidney injury - consider hemodynamically-mediated renal dysfunction. This could also have been contributed by the intake of her Entresto. My bias is to do a gentle volume repletion with this patient, especially with the lower blood pressure. A chest x-ray showed no overt congestive heart failure. The hypoxemia may be related to the atelectasis and decreased respiratory rate with this patient due to this severe pain she could not inhale appropriately. 2. There is no indication for any dialytic intervention with this patient. Continue supportive care. We will start normal saline 75 mL/hour. Consider also a pulmonary consult for further evaluation with her shortness of breath. She may need to be ruled out for possible pulmonary embolism if there is no improvement with her hypoxemia. Overall prognosis remains guarded. Job ID: [id number]
[2019-09-03] MEDS ORDERED: FLU VACC TS2019-20(65YR UP)/PF 180 MCG/0.5 ML SYRINGE IM ONE (12:00)
[2019-09-03] MEDS ORDERED: HYDROcodone/Acetaminophen 5/325 mg Tablet PO PRN (14:00)
--- NOTE | 2019-09-03 16:58 | CON ---
DATE OF CONSULTATION: 09/03/2019 REASON FOR CONSULTATION: Non-STEMI. HISTORY OF PRESENT ILLNESS: Ms. Buck is a very pleasant 83-year-old white female, very well known to myself, who comes to the hospital after a fall. She actually fell at home. She woke up in the middle of the night about 1:00 a.m. to go to the bathroom. She has a little step right next to her bed and she did not step on it right and she fell on her right side and broke several ribs. She came to the ER due to pain and she did not want to be admitted as she was concerned she was going to catch the flu, so she was transferred to inpatient rehab. In rehab, she became hypotensive and hypoxic, so she was transferred over for further evaluation and care. On my evaluation, she is doing much better. She denies any chest pain, tightness, or pressure other than the rib pains. PAST MEDICAL HISTORY: 1. Nonischemic cardiomyopathy secondary to a left bundle-branch block. 2. Status post biventricular AICD. 3. CAD with stents to the distal LAD in December of this year. 4. Hypertension. 5. GERD. 6. Breast cancer status post lumpectomy and chemoradiation. 7. Chronic kidney disease, stage 3. 8. COPD. 9. Pericardial cyst. SURGICAL HISTORY: 1. Back surgery by Dr. Parra. 2. ORIF of the right humerus. 3. Lumpectomy. 4. Hernia repair. 5. Parathyroidectomy. 6. Appendectomy. 7. Left partial knee replacement. SOCIAL HISTORY: Former smoker, quit 10 years ago. No alcohol or drugs. OUTPATIENT MEDICATIONS: Include: 1. Simvastatin 10 mg nightly. 2. Entresto 24/26 b.i.d. 3. Protonix. 4. Loratadine. 5. [place]. 6. Neurontin. 7. Folic acid. 8. Ferrous sulfate. 9. Cymbalta. 10. Vitamin B12. 11. Plavix 75 mg a day. 12. Carvedilol 3.125 b.i.d. 13. Aspirin 81 a day. ALLERGIES: NO KNOWN DRUG ALLERGIES. FAMILY HISTORY: Noncontributory. REVIEW OF SYSTEMS: A 12-point review of systems was done and was found to be negative unless stated in the history of present illness. PHYSICAL EXAMINATION: VITAL SIGNS: Temperature 98.2, pulse 86, respiratory rate 20, saturating 94% on room air, and blood pressure 91/50. GENERAL: Awake, alert, and oriented x3, in no distress. HEENT: Normocephalic and atraumatic. NECK: Supple. LUNGS: Clear. CARDIOVASCULAR: S1 and S2. No S3 or S4. No murmurs. ABDOMEN: Soft. Positive bowel sounds. EXTREMITIES: No edema. SKIN: Warm and dry. LABORATORY DATA: Laboratory work was reviewed. CBC with a white count of 9, hemoglobin of 11.4, hematocrit of 34, and platelet count of 250. Chemistries: Creatinine initially at 2.2 yesterday up to 3.0, now at 3.13; GFR 14, her baseline is normal. Troponin has been 1.2, then 2.8, and then 2.8. BNP was 619. Glucose was 140. UA with 1+ urine bacteria, hyaline casts and granular casts. CT of the abdomen and pelvis showed multiple rib fractures. CT of the chest confirmed this. There was no pneumothorax. A small right pleural effusion with subcutaneous emphysema. Mild consolidation of the right lung, COPD, and dense vascular calcification. ASSESSMENT AND PLAN: 1. [id number]-CC-[id number] myocardial infarction. More than likely this is demand ischemia type 2 World Health Organization type of [place] related to her fall. 2. Acute kidney injury on chronic kidney disease. She is starting to diurese quite well, almost 200 mL an hour. This was after a Chery was placed. Continue to avoid nephrotoxic agents. Entresto has to be stopped. 3. Fall and rib fractures. PLAN: 1. We will do an echocardiogram to assess her LV function. 2. AICD was interrogated to make sure she did not fall from any abnormal rhythms and this was not the case. She has completely normal interrogation with normal functioning. No therapies delivered. 3. No plan on doing a heart catheterization as this will be prohibitive at this time given her elevated creatinine. 4. Echocardiogram pending. Thank you for letting us to participate in the care of your patient. We will follow. Job ID: [id number]
[2019-09-03] MEDS: HYDROcodone/Acetaminophen 5/325 mg Tablet PO PRN (20:18)
--- NOTE | 2019-09-03 21:16 | CON ---
DATE OF CONSULTATION: 09/03/2019 HISTORY OF PRESENT ILLNESS: Ms. Buck is a very pleasant woman, whom I have seen in the past. She tripped over a footstool when she used to climb up into her bed last night and landed on a table, breaking multiple right ribs. I was consulted because of hypoxemia and abnormal chest CT. PAST MEDICAL HISTORY: 1. Coronary stenting, for which she is on Plavix. 2. Lipid disorder. 3. Chronic kidney disease. 4. Hypertension. 5. Diabetes. 6. History of defibrillator. 7. History of left bundle branch block. PAST SURGICAL HISTORY: 1. History of spine surgery. 2. History of lumpectomy. 3. History of herniorrhaphy. 4. History of parathyroidectomy. 5. History of appendectomy. 6. History of knee surgery. SOCIAL HISTORY: She is nonsmoker, nondrinker, nondrug user. ALLERGIES: SHE HAS NO DRUG ALLERGIES. MEDICATIONS: Reviewed. FAMILY HISTORY: Negative for lung disease in early age. REVIEW OF SYSTEMS: 10 point review of systems completed, otherwise negative. Her only complaint is pain with taking a deep breath regarding the right chest. PHYSICAL EXAMINATION: GENERAL: She tripped over a footstool when she used to climb up into her bed last night and landed on a table, breaking multiple right ribs. VITAL SIGNS: Blood pressure is 99/48, it was in 80s yesterday. She says her normal blood pressure has been in the 90s, heart rates in 80s to 100 range. Respiratory rates in the teens, oximetry is 94%. HEENT: Pupils are equal. Sclerae are anicteric. NECK: Supple. LUNGS: Clear. HEART: Regular rhythm. S1 and S2 are normal. ABDOMEN: Soft and nontender. EXTREMITIES: Without clubbing, cyanosis, or edema. LABORATORY DATA: White count is 9.1, hemoglobin 11.4, platelets 250. Sodium 139, potassium 4.6, chloride 97, bicarb 31, BUN 39, creatinine 3.13. Creatinine on July 20 was 1.37, January 19 was 1.13. IMPRESSION: 1. Rib fracture. 2. Intravascular volume depletion with prerenal azotemia, most likely accounting for rise in creatinine. 3. Deconditioning. 4. Diabetes. 5. History of coronary stenting, would not withhold her Plavix. 6. Pleural effusion on the right. It is likely blood. This is not large enough to justify thoracentesis or chest tube. 7. I will be happy to follow the other physicians caring for her. I met with family and answered all their questions. This is a 50 minute consult, with greater than 50% of time spent on unit coordinating care. Job ID: [id number] [id number]
[2019-09-04] MEDS: HYDROcodone/Acetaminophen 5/325 mg Tablet PO PRN ×2 (01:54→15:10)
[2019-09-04] MEDS ORDERED: HYDROcodone/Acetaminophen 5/325 mg Tablet PO SCH (02:15)
[2019-09-04] MEDS: Cyclobenzaprine 10 MG TAB PO PRN ×2 (02:17→09:33)
[2019-09-04] MEDS: Sodium Chloride 0.9% 1,000 ML IV SCH ×2 (04:38→15:16)
[2019-09-04 05:27] LABS: #Eosinphils 0.1 thou/uL (0.0-0.7); #Lymphocytes 1.2 thou/uL (1.20-3.40); #Monocytes 0.5 thou/uL (0.11-0.59); #Neutrophils 6.2 thou/uL (1.40-6.50); %Basophils 0.1 % (0.0-1.0); %Eosinophils 1.1 % (0.0-10.0); %Lymphocytes 14.9 % (21.0-51.0); %Monocytes 6.5 % (0.0-10.0); %Neutrophils 77.4 % (42.0-75.0); Hemoglobin 9.8 g/dL (12.0-16.0); Mean Corpuscular HGB CONC 33.2 g/dL (32.0-36.0); Mean Corpuscular Hemoglobin 32.8 pg (27.0-31.0); Mean Platelet Volume 8.4 fL (7.4-10.4); Platelet Count 182 thou/uL (130-400); RBC Distribution Width 14.3 % (11.5-14.5); Red Blood Cell (RBC) Count 2.99 mill/uL (4.20-5.40)
[2019-09-04 05:51] LABS: Anion Gap 9 mmol/L (10-20); BUN (Urea Nitrogen) 23 mg/dL (9.8-20.1); Calc. Creatinine Clearance 40 mL/min (70-130); Carbon Dioxide 29 mmol/L (23-31); Chloride 106 mmol/L (98-107); Estimated GFR-MDRD 35; Glucose 166 mg/dL (83-110); Potassium 4.1 mmol/L (3.5-5.1); Sodium 140 mmol/L (136-145)
[2019-09-04] MEDS: HYDROcodone/Acetaminophen 10/325 mg Tablet PO PRN ×2 (07:52→20:43)
[2019-09-04] MEDS: Cyanocobalamin (Vitamin B-12) 1,000 MCG TAB PO SCH (09:21)
[2019-09-04] MEDS: Aspirin Chewable 81 MG TAB PO SCH (09:21)
[2019-09-04] MEDS: Enoxaparin Sodium 30 MG/0.3 ML SYRINGE SC SCH (09:21)
[2019-09-04] MEDS: Clopidogrel Bisulfate 75 MG TAB PO SCH (09:21)
[2019-09-04] MEDS: Pantoprazole 40 MG VIAL IVP SCH (09:21)
[2019-09-04] MEDS: DULoxetine 30 MG CAP PO SCH ×2 (09:21→20:43)
--- NOTE | 2019-09-04 09:41 | PRG ---
DATE OF SERVICE: 09/04/2019 SERVICE: Renal Medicine. SUBJECTIVE: Ms. Buck is an 83-year-old white female, who was seen for an acute kidney injury that was hemodynamically-mediated renal dysfunction. She was empirically given volume repletion. At the same time, adjustment of her medications was done - she is off Entresto. Renal function has dramatically much improved. The patient is wanting to go home. No other complaints. No chest pain or shortness of breath. She does have some rib pain. OBJECTIVE: VITAL SIGNS: Blood pressure 122/73, heart rate is 99, respiratory rate 14, and pulse ox 96%. GENERAL: Noted to be awake, alert, comfortable, not in distress. SKIN: Adequate turgor. HEENT: Pinkish conjunctivae. Anicteric sclerae. NECK: No neck mass. No carotid bruits. No JVD. CHEST: No deformities. LUNGS: Clear breath sounds. HEART: Normal sinus rhythm. No murmurs. No gallops. No rubs. ABDOMEN: Globular, soft, and nontender. No masses. EXTREMITIES: No edema. No deformities. MEDICATIONS: Medications of September 04, 2019, reviewed. LABORATORY DATA: Laboratories of September 04, 2019: White count 8, hemoglobin 9.8. Sodium 140, potassium 4.1, chloride 106, carbon dioxide 29, BUN 23, creatinine 1.42, GFR 35 mL/minute, glucose 166, calcium 8.0. Troponin-I is 2.883. ASSESSMENT AND PLAN: 1. Elevated troponin-I - most likely [id number] myocardial infarction from demand ischemia from her fall. Cardiology is following. 2. Acute kidney injury on top of chronic renal failure, superimposed hemodynamically-mediated dysfunction, much improved renal function. No indication for any dialytic intervention. The patient is diuresing. For the moment, agree with current management, gentle volume repletion, holding off Entresto. 3. Status post rib fracture, supportive care. Due to the dramatically improved renal function, we will be signing off. We will follow up this patient in the outpatient setting. Please recall if needed. Job ID: [id number]
--- NOTE | 2019-09-04 09:49 | PDOC.HOSPP ---
- Subjective Encounter Date: 09/04/19 Subjective: Pt seen c/o rib cage area pain , Denies fever sob getting better , not in distress - Objective Vital Signs & Weight: Vital Signs (12 hours) Temp Pulse Ox 09/04/19 08:00 96 09/04/19 07:00 96.9 F L 09/04/19 04:00 98.0 F 09/04/19 00:00 98.1 F Weight Weight 183 lb 13.848 oz Most Recent Monitor Data Heart Rate from ECG 99 NIBP 122/73 NIBP BP-Mean 89 Respiration from ECG 14 SpO2 96 I&O: 09/03/19 09/04/19 09/05/19 06:59 06:59 06:59 Intake Total 2404 Output Total 2465 170 Balance -61 -170 Result Diagrams: 09/04/19 05:16 09/04/19 05:16 Additional Labs: Accuchecks 09/03/19 11:42 POC Glucose 140 H Hospitalist ROS - Review of Systems Constitutional: reports: weakness. denies: fever Eyes: denies: pain ENT: denies: ear pain Respiratory: reports: shortness of breath. denies: cough Cardiovascular: reports: chest pain Genitourinary: denies: dysuria Musculoskeletal: denies: neck pain Neurological: denies: weakness - Medication Medications: Active Medications Generic Name Dose Route Start Last Admin Trade Name Freq PRN Reason Stop Dose Admin Hydrocodone Bitart/Acetaminophen 1 tab 09/04/19 02:08 09/04/19 07:52 [place] 10/325 PO 1 tab Q4H PRN Administration Moderate to Severe Pain (6-10) Aspirin 81 mg 09/03/19 09:00 09/04/19 09:21 Aspirin Chewable PO 81 mg DAILY SHANNON Administration Clopidogrel Bisulfate 75 mg 09/04/19 09:00 09/04/19 09:21 Plavix PO 75 mg DAILY SHANNON Administration Cyanocobalamin 1,000 mcg 09/03/19 09:00 09/04/19 09:21 Vitamin B-12 PO Not Given DAILY SHANNON Cyclobenzaprine HCl 5 mg 09/04/19 02:08 09/04/19 09:33 Flexeril PO 5 mg TIDPRN PRN Administration Muscle Spasm Duloxetine HCl 30 mg 09/03/19 09:00 09/04/19 09:21 Cymbalta PO 30 mg BID SHANNON Administration Enoxaparin Sodium 30 mg 09/03/19 09:00 09/04/19 09:21 Lovenox SC 30 mg 0900 SHANNON Administration Sodium Chloride 1,000 mls @ 100 mls/hr 09/03/19 06:45 09/04/19 04:38 Normal Saline 0.9% IV 1,000 mls .Q10H SHANNON Administration Sodium Chloride 10 ml 09/04/19 09:00 09/04/19 09:21 Flush - Normal Saline IVF 10 ml Q12HR SHANNON Administration - Exam General Appearance: awake alert Eye: anicteric sclera ENT: normocephalic atraumatic Neck: supple Heart: no murmur Respiratory - other findings: decrease air antry right lung bases Gastrointestinal: soft Extremities: no cyanosis Hosp A/P - Plan Acutehypoxic respiratory failure due to right sided 8- 12 rib fractures with atelactasis and effusion ,Continue oxygen Incentive spirometry pain medication , Explained pt pain will gradually improve and needs incentive spirometry to avoid respiratory compromise and pneumonia Hypotension most likley due to volume depletion improved and stable today started coreg today Positive troponin most likley demand supply mismatch ischemia continue aspirin plavix and statin cardiology on board Htn continue to monitor STACI With CKD stage 3 improving ,kidney functions are almost base line DM diet Controlled continue to monitor sugars h/o ICMP S/P AICD/PPM placement DVT/GI prophyalxis Plan Discussed with pt and nursing staff Pt can be transfer to [facility] [place]
--- NOTE | 2019-09-04 11:06 | PRG ---
DATE OF SERVICE: 09/04/2019 SUBJECTIVE: Wu Buck is in no distress. She still has chest discomfort. She did not sleep well last night. I have added a fentanyl patch to see if this helps with her rib pain. OBJECTIVE: VITAL SIGNS: Heart rate . LUNGS: Clear. HEART: Regular rhythm. ABDOMEN: Soft and nontender. LABORATORY DATA: White count 8, hemoglobin 9.8, platelets 182. Sodium 140, potassium 4.1, chloride 106, bicarb 9, BUN 23, creatinine 1.42. IMPRESSION: 1. Status post fall with multiple rib fractures. 2. Intravascular volume depletion. Creatinine is improved from 3.13 to 1.42 with hydration. 3. Small pleural effusion on the right. It is likely blood. This secondary to blood loss. 4. Plavix. I have discussed this with Dr. Souza. needs to be held at this time we find evidence of bleeding. We will continue to follow . Job ID: [id number]
[2019-09-04] MEDS ORDERED: Furosemide 40 MG TAB PO SCH (18:30)
[2019-09-04] MEDS: Carvedilol 6.25 MG TAB PO SCH (20:42)
[2019-09-04] MEDS: Atorvastatin Calcium 20 MG TAB PO SCH (20:43)
[2019-09-04] MEDS: Gabapentin 300 MG CAP PO SCH (20:44)
[2019-09-05 04:34] LABS: #Eosinphils 0.2 thou/uL (0.0-0.7); #Lymphocytes 1.6 thou/uL (1.20-3.40); #Monocytes 0.5 thou/uL (0.11-0.59); #Neutrophils 4.5 thou/uL (1.40-6.50); %Basophils 0.3 % (0.0-1.0); %Eosinophils 2.3 % (0.0-10.0); %Lymphocytes 23.5 % (21.0-51.0); %Monocytes 7.6 % (0.0-10.0); %Neutrophils 66.2 % (42.0-75.0); Hemoglobin 9.8 g/dL (12.0-16.0); Mean Corpuscular HGB CONC 32.9 g/dL (32.0-36.0); Mean Corpuscular Hemoglobin 32.4 pg (27.0-31.0); Mean Corpuscular Volume 98.5 fL (78.0-98.0); Mean Platelet Volume 8.1 fL (7.4-10.4); Platelet Count 190 thou/uL (130-400); Red Blood Cell (RBC) Count 3.01 mill/uL (4.20-5.40); White Blood Cell (WBC) Count 6.9 thou/uL (4.8-10.8)
[2019-09-05 04:57] LABS: Anion Gap 11 mmol/L (10-20); BUN (Urea Nitrogen) 16 mg/dL (9.8-20.1); Calc. Creatinine Clearance 56 mL/min (70-130); Calcium 8.4 mg/dL (7.8-10.44); Carbon Dioxide 30 mmol/L (23-31); Chloride 102 mmol/L (98-107); Estimated GFR-MDRD 52; Glucose 115 mg/dL (83-110); Potassium 3.9 mmol/L (3.5-5.1); Sodium 139 mmol/L (136-145)
[2019-09-05] MEDS: HYDROcodone/Acetaminophen 10/325 mg Tablet PO PRN ×2 (05:38→19:37)
[2019-09-05] MEDS: Carvedilol 6.25 MG TAB PO SCH ×2 (07:31→19:34)
[2019-09-05] MEDS: DULoxetine 30 MG CAP PO SCH ×2 (09:39→19:36)
[2019-09-05] MEDS: Clopidogrel Bisulfate 75 MG TAB PO SCH (09:40)
[2019-09-05] MEDS: Cyanocobalamin (Vitamin B-12) 1,000 MCG TAB PO SCH (09:40)
[2019-09-05] MEDS: Enoxaparin Sodium 30 MG/0.3 ML SYRINGE SC SCH (09:41)
[2019-09-05] MEDS: Folic Acid 1 MG TAB PO SCH (09:41)
[2019-09-05] MEDS: Gabapentin 300 MG CAP PO SCH ×2 (09:41→19:36)
[2019-09-05] MEDS: Aspirin Chewable 81 MG TAB PO SCH (09:41)
--- NOTE | 2019-09-05 10:51 | PDOC.HOSPP ---
- Subjective Encounter Date: 09/05/19 Encounter Time: 10:49 Subjective: Ms. Buck was seen today in follow-up of fall with multiple rib fractures. She says she is breathing better today, and has less pain. She was up for the first time with PT yesterday. - Objective Vital Signs & Weight: Vital Signs (12 hours) Temp BP Pulse Ox 09/05/19 10:48 98.4 F 09/05/19 07:31 107/64 09/05/19 07:12 97.0 F L 09/05/19 07:02 98 09/05/19 03:17 97.4 F L 09/04/19 23:35 98.0 F Weight Weight 176 lb 1.6 oz Most Recent Monitor Data Heart Rate from ECG 110 NIBP 98/64 NIBP BP-Mean 75 Respiration from ECG 24 SpO2 91 I&O: 09/04/19 09/05/19 09/06/19 06:59 06:59 05:59 Intake Total 2404 2451 Output Total 2467 2920 Balance -61 -469 Result Diagrams: 09/05/19 04:08 09/05/19 04:08 Hospitalist ROS - Medication Medications: Active Medications Generic Name Dose Route Start Last Admin Trade Name Freq PRN Reason Stop Dose Admin Hydrocodone Bitart/Acetaminophen 1 tab 09/04/19 02:08 09/05/19 05:38 [place] 10/325 PO 1 tab Q4H PRN Administration Moderate to Severe Pain (6-10) Aspirin 81 mg 09/03/19 09:00 09/05/19 09:41 Aspirin Chewable PO 81 mg DAILY SHANNON Administration Atorvastatin Calcium 20 mg 09/04/19 21:00 09/04/19 20:43 Lipitor PO 20 mg HS SHANNON Administration Carvedilol 6.25 mg 09/04/19 21:00 09/05/19 07:31 Coreg PO Not Given BID SHANNON Clopidogrel Bisulfate 75 mg 09/04/19 09:00 09/05/19 09:40 Plavix PO 75 mg DAILY SHANNON Administration Cyanocobalamin 1,000 mcg 09/03/19 09:00 09/05/19 09:40 Vitamin B-12 PO 1,000 mcg DAILY SHANNON Administration Cyclobenzaprine HCl 5 mg 09/04/19 02:08 09/04/19 09:33 Flexeril PO 5 mg TIDPRN PRN Administration Muscle Spasm Duloxetine HCl 30 mg 09/03/19 09:00 09/05/19 09:39 Cymbalta PO 30 mg BID SHANNON Administration Enoxaparin Sodium 30 mg 09/03/19 09:00 09/05/19 09:41 Lovenox SC 30 mg 0900 SHANNON Administration Fentanyl 25 mcg 09/04/19 10:00 09/04/19 09:56 Duragesic TD 25 mcg Q3D SHANNON Administration Folic Acid 1 mg 09/05/19 09:00 09/05/19 09:41 Folvite PO 1 mg DAILY SHANNON Administration Gabapentin 300 mg 09/04/19 21:00 09/05/19 09:41 Neurontin PO 300 mg BID SHANNON Administration Pantoprazole Sodium 40 mg 09/05/19 09:00 09/05/19 09:42 Protonix PO Not Given DAILY [facility] Sodium Chloride 10 ml 09/04/19 09:00 09/05/19 09:42 Flush - Normal Saline IVF 10 ml Q12HR SHANNON Administration - Exam Eye: PERRL, anicteric sclera Heart: RRR, no murmur, no gallops, no rubs, normal peripheral pulses Respiratory: CTAB (decreased breath sounds at the bases), no wheezes, no rales, no ronchi, normal chest expansion, no tachypnea Gastrointestinal: soft, non-tender, non-distended, normal bowel sounds, no palpable masses, no hepatomegaly Extremities: no cyanosis (no calf tenderness no redness or erythema), no clubbing, 1+ LE edema Hosp A/P (1) Closed rib fracture Code(s): S22.39XA - FRACTURE OF ONE RIB, UNSP SIDE, INIT FOR CLOS FX Status: Acute (2) Diabetes type 2, controlled Code(s): E11.9 - TYPE 2 DIABETES MELLITUS WITHOUT COMPLICATIONS Status: Chronic (3) Dyslipidemia Code(s): E78.5 - HYPERLIPIDEMIA, UNSPECIFIED Status: Chronic (4) Hypertension Code(s): I10 - ESSENTIAL (PRIMARY) HYPERTENSION Status: Chronic Qualifiers: (5) Chronic systolic heart failure, ACC/AHA stage C Code(s): I50.22 - CHRONIC SYSTOLIC (CONGESTIVE) HEART FAILURE Status: Chronic - Plan * Accidental fall with the fracture of the 8th through 12th ribs on the right with pleural effusion- continue incentive spirometry, and pain control * Chronic systolic heart failure- compensated * DM- blood glucose is stable * HTN- controlled * STACI- resolved * Continue PT/OT
--- NOTE | 2019-09-05 11:31 | PRG ---
DATE OF SERVICE: 09/05/2019 SUBJECTIVE: The patient is doing much better. She is not coughing as much and her chest pain is well controlled on hydrocodone. OBJECTIVE: VITAL SIGNS: Temperature is 98.4, pulse 110, blood pressure 98/64. HEENT: Unremarkable. NECK: No adenopathy or JVD. CHEST: Fairly clear bilaterally. CARDIAC: S1, S2. Regular. ABDOMEN: Soft, nontender. EXTREMITIES: No clubbing, cyanosis, or edema. ASSESSMENT: 1. Rib fractures. 2. Small pleural effusion on the right. 3. Intravascular volume depletion. PLAN: The patient can be transferred out to the medical floor. I suspect she can probably go home in the next day or 2. Job ID: [id number]
[2019-09-05] MEDS: Atorvastatin Calcium 20 MG TAB PO SCH (19:36)
[2019-09-05] MEDS: Cyclobenzaprine 10 MG TAB PO PRN (19:36)
[2019-09-06] MEDS: HYDROcodone/Acetaminophen 10/325 mg Tablet PO PRN ×2 (04:36→09:20)
[2019-09-06 06:13] LABS: #Eosinphils 0.2 thou/uL (0.0-0.7); #Lymphocytes 1.3 thou/uL (1.20-3.40); #Monocytes 0.4 thou/uL (0.11-0.59); #Neutrophils 4.2 thou/uL (1.40-6.50); %Basophils 0.4 % (0.0-1.0); %Eosinophils 2.9 % (0.0-10.0); %Lymphocytes 21.1 % (21.0-51.0); %Monocytes 6.5 % (0.0-10.0); Hemoglobin 9.3 g/dL (12.0-16.0); Mean Corpuscular HGB CONC 32.9 g/dL (32.0-36.0); Mean Corpuscular Hemoglobin 32.5 pg (27.0-31.0); Mean Corpuscular Volume 98.7 fL (78.0-98.0); Mean Platelet Volume 8.2 fL (7.4-10.4); Platelet Count 189 thou/uL (130-400); RBC Distribution Width 13.8 % (11.5-14.5); Red Blood Cell (RBC) Count 2.85 mill/uL (4.20-5.40); White Blood Cell (WBC) Count 6.1 thou/uL (4.8-10.8)
[2019-09-06 06:42] LABS: Anion Gap 10 mmol/L (10-20); BUN (Urea Nitrogen) 15 mg/dL (9.8-20.1); Calc. Creatinine Clearance 60 mL/min (70-130); Calcium 8.6 mg/dL (7.8-10.44); Carbon Dioxide 35 mmol/L (23-31); Chloride 101 mmol/L (98-107); Estimated GFR-MDRD 59; Glucose 120 mg/dL (83-110); Potassium 3.7 mmol/L (3.5-5.1); Sodium 142 mmol/L (136-145)
[2019-09-06] MEDS: Carvedilol 6.25 MG TAB PO SCH ×2 (09:15→20:33)
[2019-09-06] MEDS: DULoxetine 30 MG CAP PO SCH ×2 (09:15→20:32)
[2019-09-06] MEDS: Clopidogrel Bisulfate 75 MG TAB PO SCH (09:17)
[2019-09-06] MEDS: Folic Acid 1 MG TAB PO SCH (09:17)
[2019-09-06] MEDS: Cyclobenzaprine 10 MG TAB PO PRN (09:17)
[2019-09-06] MEDS: Cyanocobalamin (Vitamin B-12) 1,000 MCG TAB PO SCH (09:17)
[2019-09-06] MEDS: Gabapentin 300 MG CAP PO SCH ×2 (09:17→20:33)
[2019-09-06] MEDS: Enoxaparin Sodium 30 MG/0.3 ML SYRINGE SC SCH (09:18)
[2019-09-06] MEDS: Aspirin Chewable 81 MG TAB PO SCH (09:18)
--- NOTE | 2019-09-06 10:11 | RAD ---
FRONTAL VIEW CHEST: COMPARISON: 09/03/2019. INDICATION: Pleural effusion. FINDINGS: There is a hazy density at the inferior right chest. Slight blunting is also demonstrated of the lef t costophrenic sulcus. There is enlargement of the cardiac silhouette and prominence of the pulmonar y interstitium and vasculature. Right-side cardiac pacing device remains in place. There is vascula r calcification. IMPRESSION: Bilateral pleural fluid right greater than left likely related to decompensated congestive heart fail ure. POS: CET
--- NOTE | 2019-09-06 11:07 | PRG ---
DATE OF SERVICE: 09/06/2019 SUBJECTIVE: She says she continues to improve. Her family is somewhat concerned because there was some bloody sediment in her urine this morning. OBJECTIVE: VITAL SIGNS: Temperature 98.2, pulse 99, blood pressure 144/84, and O2 saturation 92%. HEENT: Unremarkable. NECK: No adenopathy or JVD. CHEST: Clear to auscultation without wheezing or rhonchi. CARDIAC: S1 and S2. Regular. ABDOMEN: Soft. EXTREMITIES: No edema. LABORATORY DATA: White blood cell count 6.1, hematocrit 28.1, and platelet count 189. Sodium 142, potassium 3.7, BUN 15, creatinine 0.9, and glucose 120. ASSESSMENT: 1. Rib fractures. 2. Small pleural effusion, which is stable on today's x-ray. 3. Intravascular volume depletion. PLAN: I would recommend discontinuing the Chery catheter. Continue pulmonary toilet measures. Increase activity as tolerated. Likely home soon. Job ID: [id number]
--- NOTE | 2019-09-06 15:27 | PDOC.HOSPP ---
- Subjective Encounter Date: 09/06/19 Encounter Time: 15:24 Subjective: Ms. Buck was seen today in follow-up of fall with multiple rib fractures. She is currently sleeping. He daughter is concerned that the pain medication may be too strong. - Objective Vital Signs & Weight: Vital Signs (12 hours) Temp Pulse Resp BP BP Pulse Ox 09/06/19 12:00 97.8 F 09/06/19 11:26 97.8 F 99 18 127/82 91 L 09/06/19 09:15 144/84 H 09/06/19 07:20 98.2 F 99 18 144/84 H 92 L 09/06/19 04:00 98.4 F 109 H 23 H 116/95 H 95 Weight Weight 176 lb 1.6 oz Most Recent Monitor Data Heart Rate from ECG 107 NIBP 106/77 NIBP BP-Mean 86 Respiration from ECG 14 SpO2 90 I&O: 09/05/19 09/06/19 09/07/19 07:59 06:59 06:59 Intake Total 240 Output Total 400 Balance -160 Result Diagrams: 09/06/19 05:45 09/06/19 05:45 Hospitalist ROS - Medication Medications: Active Medications Generic Name Dose Route Start Last Admin Trade Name Freq PRN Reason Stop Dose Admin Hydrocodone Bitart/Acetaminophen 1 tab 09/04/19 02:08 09/06/19 09:20 [place] 10/325 PO 1 tab Q4H PRN Administration Moderate to Severe Pain (6-10) Aspirin 81 mg 09/03/19 09:00 09/06/19 09:18 Aspirin Chewable PO 81 mg DAILY SHANNON Administration Atorvastatin Calcium 20 mg 09/04/19 21:00 09/05/19 19:36 Lipitor PO 20 mg HS SHANNON Administration Carvedilol 6.25 mg 09/04/19 21:00 09/06/19 09:15 Coreg PO 6.25 mg BID SHANNON Administration Clopidogrel Bisulfate 75 mg 09/04/19 09:00 09/06/19 09:17 Plavix PO 75 mg DAILY SHANNON Administration Cyanocobalamin 1,000 mcg 09/03/19 09:00 09/06/19 09:17 Vitamin B-12 PO 1,000 mcg DAILY SHANNON Administration Cyclobenzaprine HCl 5 mg 09/04/19 02:08 09/04/19 09:33 Flexeril PO 5 mg TIDPRN PRN Administration Muscle Spasm Cyclobenzaprine HCl 10 mg 09/04/19 09:45 09/06/19 09:17 Flexeril PO 10 mg TID PRN Administration Muscle Spasm Duloxetine HCl 30 mg 09/03/19 09:00 09/06/19 09:15 Cymbalta PO 30 mg BID SHANNON Administration Enoxaparin Sodium 30 mg 09/03/19 09:00 09/06/19 09:18 Lovenox SC 30 mg 09 SHANNON Administration Fentanyl 25 mcg 09/04/19 10:00 09/04/19 09:56 Duragesic TD 25 mcg Q3D SHANNON Administration Folic Acid 1 mg 09/05/19 09:00 09/06/19 09:17 Folvite PO 1 mg DAILY SHANNON Administration Gabapentin 300 mg 09/04/19 21:00 09/06/19 09:17 Neurontin PO 300 mg BID SHANNON Administration Pantoprazole Sodium 40 mg 09/05/19 09:00 09/06/19 09:18 Protonix PO 40 mg DAILY SHANNON Administration Sodium Chloride 10 ml 09/04/19 09:00 09/06/19 09:19 Flush - Normal Saline IVF 10 ml Q12HR SHANNON Administration - Exam Eye: PERRL Heart: RRR, no murmur, no gallops, no rubs, normal peripheral pulses Respiratory: CTAB, no wheezes, no rales, no ronchi, normal chest expansion Gastrointestinal: soft, non-tender, non-distended, normal bowel sounds, no palpable masses, no hepatomegaly Extremities: no cyanosis, no clubbing, no edema Hosp A/P (1) Closed rib fracture Code(s): S22.39XA - FRACTURE OF ONE RIB, UNSP SIDE, INIT FOR CLOS FX Status: Acute (2) Diabetes type 2, controlled Code(s): E11.9 - TYPE 2 DIABETES MELLITUS WITHOUT COMPLICATIONS Status: Chronic (3) Dyslipidemia Code(s): E78.5 - HYPERLIPIDEMIA, UNSPECIFIED Status: Chronic (4) Hypertension Code(s): I10 - ESSENTIAL (PRIMARY) HYPERTENSION Status: Chronic Qualifiers: (5) Chronic systolic heart failure, ACC/AHA stage C Code(s): I50.22 - CHRONIC SYSTOLIC (CONGESTIVE) HEART FAILURE Status: Chronic - Plan * Accidental fall with the fracture of the 8th through 12th ribs on the right with pleural effusion- Will reduce the dose of the Fentanyl patch, and [place] due to somnolence * Continue Incentive Spirometry * Chronic systolic heart failure- compensated * DM- blood glucose is stable * HTN- controlled * Continue PT/OT * Home vs half-way soon
[2019-09-06] MEDS: HYDROcodone/Acetaminophen 5/325 mg Tablet PO PRN (20:33)
[2019-09-06] MEDS: Atorvastatin Calcium 20 MG TAB PO SCH (20:33)
[2019-09-07 06:36] LABS: #Eosinphils 0.1 thou/uL (0.0-0.7); #Lymphocytes 1.5 thou/uL (1.20-3.40); #Monocytes 0.4 thou/uL (0.11-0.59); #Neutrophils 4.4 thou/uL (1.40-6.50); %Basophils 0.4 % (0.0-1.0); %Eosinophils 2.2 % (0.0-10.0); %Lymphocytes 23.3 % (21.0-51.0); %Monocytes 6.3 % (0.0-10.0); %Neutrophils 67.9 % (42.0-75.0); Hemoglobin 9.3 g/dL (12.0-16.0); Mean Corpuscular HGB CONC 33.4 g/dL (32.0-36.0); Mean Corpuscular Hemoglobin 32.8 pg (27.0-31.0); Mean Corpuscular Volume 98.2 fL (78.0-98.0); Mean Platelet Volume 8.2 fL (7.4-10.4); Platelet Count 203 thou/uL (130-400); RBC Distribution Width 13.7 % (11.5-14.5); Red Blood Cell (RBC) Count 2.83 mill/uL (4.20-5.40); White Blood Cell (WBC) Count 6.4 thou/uL (4.8-10.8)
[2019-09-07] MEDS: Cyanocobalamin (Vitamin B-12) 1,000 MCG TAB PO SCH (08:30)
[2019-09-07] MEDS: DULoxetine 30 MG CAP PO SCH ×2 (08:30→20:39)
[2019-09-07] MEDS: Gabapentin 300 MG CAP PO SCH ×2 (08:31→20:40)
[2019-09-07] MEDS: Folic Acid 1 MG TAB PO SCH (08:31)
[2019-09-07] MEDS: Clopidogrel Bisulfate 75 MG TAB PO SCH (08:31)
[2019-09-07] MEDS: Aspirin Chewable 81 MG TAB PO SCH (08:32)
[2019-09-07] MEDS: Carvedilol 6.25 MG TAB PO SCH ×2 (08:32→20:39)
[2019-09-07] MEDS ORDERED: Furosemide 40 MG/4 ML VIAL SLOW IVP SCH (11:30)
[2019-09-07] MEDS: HYDROcodone/Acetaminophen 5/325 mg Tablet PO PRN (11:59)
--- NOTE | 2019-09-07 12:24 | PDOC.CPN ---
- Subjective Date: 09/07/19 Time: 12:23 Interval history: She is a little more SOB today. Uncomfortable when she is lying flat. She is not urinating as good and urine is tea colored. No chest pain. . - Review of Systems General: denies: fever/chills, weight/appetite/sleep changes, night sweats, fatigue Respiratory: denies: cough, congestion, shortness of breath, exercise intolerance Cardiovascular: denies: chest pain, palpitation, edema, paroxysmal nocturnal dyspnea, orthopnea Gastrointestinal: denies: nausea, vomiting, diarrhea, constipation, abd pain, GI bleeding Musculoskeletal: denies: pain, tenderness, stiffness, swelling, arthritis/ arthralgias Neurological: denies: numbness, syncope, seizure, weakness - Objective Allergies/Adverse Reactions: Allergies Allergy/AdvReac Type Severity Reaction Status Date / Time No Known Allergies Allergy Verified 12/24/18 02:28 Visit Medications: Current Medications Acetaminophen (Tylenol) 650 mg PO Q4H PRN PRN Reason: Headache/Fever/Mild Pain (1-3) Hydrocodone Bitart/Acetaminophen ([place] 5/325) 1 tab PO Q4H PRN PRN Reason: Moderate Pain (4-6) Last Admin: 09/07/19 11:59 Dose: 1 tab Aspirin (Aspirin Chewable) 81 mg PO DAILY [facility] Last Admin: 09/07/19 08:32 Dose: Not Given Atorvastatin Calcium (Lipitor) 20 mg PO HS [facility] Last Admin: 09/06/19 20:33 Dose: 20 mg Bisacodyl (Dulcolax) 10 mg SD DAILYPRN PRN PRN Reason: Constipation Carvedilol (Coreg) 6.25 mg PO BID [facility] Last Admin: 09/07/19 08:32 Dose: 6.25 mg Clopidogrel Bisulfate (Plavix) 75 mg PO DAILY [facility] Last Admin: 09/07/19 08:31 Dose: 75 mg Cyanocobalamin (Vitamin B-12) 1,000 mcg PO DAILY [facility] Last Admin: 09/07/19 08:30 Dose: 1,000 mcg Cyclobenzaprine HCl (Flexeril) 10 mg PO TID PRN PRN Reason: Muscle Spasm Last Admin: 09/06/19 09:17 Dose: 10 mg Duloxetine HCl (Cymbalta) 30 mg PO BID [facility] Last Admin: 09/07/19 08:30 Dose: 30 mg Fentanyl (Duragesic) 12 mcg TD Q3D [facility] Last Admin: 09/06/19 16:34 Dose: 12 mcg Folic Acid (Folvite) 1 mg PO DAILY [facility] Last Admin: 09/07/19 08:31 Dose: 1 mg Furosemide (Lasix) 40 mg SLOW IVP NOW [facility] Stop: 09/07/19 13:30 Last Admin: 09/07/19 12:00 Dose: 40 mg Gabapentin (Neurontin) 300 mg PO BID [facility] Last Admin: 09/07/19 08:31 Dose: 300 mg Lactulose (Lactulose) 10 gm PO NOW [facility] Stop: 09/07/19 13:30 Last Admin: 09/07/19 12:00 Dose: 10 gm Pantoprazole Sodium (Protonix) 40 mg PO DAILY [facility] Last Admin: 09/07/19 08:31 Dose: 40 mg Senna/Docusate Sodium (Senokot S) 2 tab PO BID PRN PRN Reason: Constipation Sodium Chloride (Flush - Normal Saline) 10 ml IVF Q12HR [facility] Last Admin: 09/07/19 08:34 Dose: 10 ml Sodium Chloride (Flush - Normal Saline) 10 ml IVF PRN PRN PRN Reason: Saline Flush Vital Signs & Weight: Vital Signs Temp Pulse Resp BP BP Pulse Ox 09/07/19 08:32 129/85 09/07/19 08:00 98.7 F 102 H 16 129/85 94 L 09/07/19 07:28 98.0 F 102 H 16 129/85 94 L 09/07/19 05:25 98.0 F 88 17 118/79 93 L 09/07/19 00:40 97.9 F 92 18 122/76 93 L Weight 176 lb 1.6 oz - Physical Exam General: alert & oriented x3 HEENT: mucus membranes moist, normocephaly Neck: supple neck, midline trachea Cardiac: regular rate and rhythm, tachycardia Lungs: bibasilar rales Neuro: grossly intact Abdomen: active bowel sounds, non-tender, distended Extremities: no cyanosis, no clubbing, 1+ LE edema Skin: clear Musculoskeletal: normal range of motion - Labs Result Diagrams: 09/07/19 05:43 09/06/19 05:45 Troponin/CKMB CK-MB (CK-2) 11.8 ng/mL (0-6.6) H* 09/03/19 04:59 Troponin I 2.883 ng/mL (< 0.028) H* 09/03/19 09:06 - Assessment/Plan Assessment/Plan: 1. NSTEMi, Type 2 demand ischemia most likely 2. STACI, normalized now. 3. Non ischemic CM. EF at 40-45% on echo last week, improved. 4. Constipation 5. S/P Fall and multiple rib fractures. PLAN; - Will diurese, one dose IV lasix. - Will give one dose lactulose, may need more to make her have a BM. - Will do UA given her concentrated urine and family concerned this is hematuria. - No plan for LHC at this time. - Conitnue Plavix and ASA, if BP allows and kidney function remains stable will re start Entresto low dose. - Will likely need inpatient rehab.
[2019-09-07 13:26] LABS: Bilirubin Negative (Negative); Blood, Urine Large (Negative); Glucose, Urine (Dipstick) Negative (Negative); Leukocyte Moderate (Negative); Nitrite Negative (Negative); Protein, Urine (Dipstick) Trace mg/dL (Neg-Trace); Urobilinogen 0.2 mg/dL (Less than 2)
[2019-09-07 13:29] LABS: Clarity Hazy (Clear)
[2019-09-07 13:38] LABS: Bacteria/HPF 3+ HPF (None Seen); RBC/HPF 0-3 HPF (0-3); Squamous Epithelial 0-3 HPF (0-3); WBC/HPF 21-50 HPF (0-3)
[2019-09-07 13:39] LABS: Urine Culture Reflex Yes Yes
--- NOTE | 2019-09-07 13:56 | PDOC.HOSPP ---
- Subjective Encounter Date: 09/07/19 Encounter Time: 12:00 Subjective: Ms. Buck was seen today in follow-up of rib fracture, and pain. She notes continued pain in her right side and back. she is much less sedated today. She notes burning after urination - Objective Vital Signs & Weight: Vital Signs (12 hours) Temp Pulse Resp BP BP Pulse Ox 09/07/19 12:00 98.5 F 103 H 19 125/78 95 09/07/19 08:32 129/85 09/07/19 08:00 98.7 F 102 H 16 129/85 94 L 09/07/19 07:28 98.0 F 102 H 16 129/85 94 L 09/07/19 05:25 98.0 F 88 17 118/79 93 L Weight Weight 176 lb 1.6 oz Most Recent Monitor Data Heart Rate from ECG 107 NIBP 106/77 NIBP BP-Mean 86 Respiration from ECG 14 SpO2 90 I&O: 09/06/19 09/07/19 09/08/19 06:59 06:59 06:59 Intake Total 1240 440 Output Total 1500 Balance -260 440 Result Diagrams: 09/07/19 05:43 09/06/19 05:45 Hospitalist ROS - Medication Medications: Active Medications Generic Name Dose Route Start Last Admin Trade Name Freq PRN Reason Stop Dose Admin Hydrocodone Bitart/Acetaminophen 1 tab 09/06/19 15:26 09/07/19 11:59 [place] 5/325 PO 1 tab Q4H PRN Administration Moderate Pain (4-6) Aspirin 81 mg 09/03/19 09:00 09/07/19 08:32 Aspirin Chewable PO Not Given DAILY [facility]ANNON Atorvastatin Calcium 20 mg 09/04/19 21:00 09/06/19 20:33 Lipitor PO 20 mg HS [facility]ANNON Administration Carvedilol 6.25 mg 09/04/19 21:00 09/07/19 08:32 Coreg PO 6.25 mg BID SHANNON Administration Clopidogrel Bisulfate 75 mg 09/04/19 09:00 09/07/19 08:31 Plavix PO 75 mg DAILY [facility] Administration Cyanocobalamin 1,000 mcg 09/03/19 09:00 09/07/19 08:30 Vitamin B-12 PO 1,000 mcg DAILY [facility] Administration Cyclobenzaprine HCl 10 mg 09/04/19 09:45 09/06/19 09:17 Flexeril PO 10 mg TID PRN Administration Muscle Spasm Duloxetine HCl 30 mg 09/03/19 09:00 09/07/19 08:30 Cymbalta PO 30 mg BID [facility]ANNON Administration Fentanyl 12 mcg 09/06/19 16:00 09/06/19 16:34 Duragesic TD 12 mcg Q3D [facility]ON Administration Folic Acid 1 mg 09/05/19 09:00 09/07/19 08:31 Folvite PO 1 mg DAILY [facility] Administration Gabapentin 300 mg 09/04/19 21:00 09/07/19 08:31 Neurontin PO 300 mg BID SHANNON Administration Pantoprazole Sodium 40 mg 09/05/19 09:00 09/07/19 08:31 Protonix PO 40 mg DAILY [facility]ON Administration Sodium Chloride 10 ml 09/04/19 09:00 09/07/19 08:34 Flush - Normal Saline IVF 10 ml Q12HR [facility]ON Administration - Exam Eye: PERRL, anicteric sclera Heart: RRR, no murmur, no gallops, no rubs, normal peripheral pulses Respiratory: CTAB, no wheezes, no rales, no ronchi, normal chest expansion, no tachypnea, normal percussion Gastrointestinal: soft, non-tender, non-distended, normal bowel sounds, no palpable masses, no hepatomegaly, no splenomegaly Extremities: 1+ LE edema Hosp A/P (1) Closed rib fracture Code(s): S22.39XA - FRACTURE OF ONE RIB, UNSP SIDE, INIT FOR CLOS FX Status: Acute (2) Chronic systolic heart failure, ACC/AHA stage C Code(s): I50.22 - CHRONIC SYSTOLIC (CONGESTIVE) HEART FAILURE Status: Chronic (3) Diabetes type 2, controlled Code(s): E11.9 - TYPE 2 DIABETES MELLITUS WITHOUT COMPLICATIONS Status: Chronic (4) Dyslipidemia Code(s): E78.5 - HYPERLIPIDEMIA, UNSPECIFIED Status: Chronic (5) Hypertension Code(s): I10 - ESSENTIAL (PRIMARY) HYPERTENSION Status: Chronic Qualifiers: (6) UTI (urinary tract infection) Status: Acute - Plan * Accidental fall with the fracture of the 8th through 12th ribs on the right with pleural effusion- she is less somnolent today- will see if her pain will be adequately controlled * Continue Incentive Spirometry * Chronic systolic heart failure- compensated * UTI- UA noted- will add Rocephin,and await culture results * DM- blood glucose is stable * HTN- controlled * Continue PT/OT * Patient will be evaluated for Rehab
[2019-09-07] MEDS: cefTRIAXone\\ROCEPHIN 1 GM in Sodium Chloride 0.9% 100 ML IVPB SCH (14:25)
[2019-09-07] MEDS ORDERED: HYDROcodone/Acetaminophen 5/325 mg Tablet PO SCH (14:30)
--- NOTE | 2019-09-07 15:49 | PRG ---
DATE OF SERVICE: 09/07/2019 SUBJECTIVE: Wu Buck has no complaints. She says she is feeling better. OBJECTIVE: VITAL SIGNS: She is afebrile. Heart rate is 102, blood pressure 129/85, respiratory rate 16, oximetry is 94% on 3 L cannula. LUNGS: Clear. HEART: Regular rhythm. ABDOMEN: Soft. EXTREMITIES: Without edema. IMPRESSION: 1. Rib fractures. 2. Small effusion. 3. Intravascular volume depletion, resolved. 4. Hematuria, secondary most likely to Chery trauma. I believe she is stable to move to the next step, which would be a retirement facility for physical therapy. Job ID: [id number]
--- NOTE | 2019-09-07 16:30 | EKG ---
Test Reason : Blood Pressure : / mmHG Vent. Rate : 098 BPM Atrial Rate : 098 BPM P-R Int : 138 ms QRS Dur : 144 ms QT Int : 412 ms P-R-T Axes : 059 037 064 degrees QTc Int : 525 ms Electronic ventricular pacemaker When compared with ECG of 03-SEP-2019 05:53, (Unconfirmed) Vent. rate has increased BY [address] Joi VALDEZ (3) on 09/07/2019 4:30:02 PM Referred By: DIEGO Confirmed By:DR. Joi VALDEZ
[2019-09-07] MEDS ORDERED: Milk Of Magnesia 30 ML UDCUP PO SCH (17:45)
[2019-09-07] MEDS: Atorvastatin Calcium 20 MG TAB PO SCH (20:39)
[2019-09-07] MEDS: HYDROcodone/Acetaminophen 10/325 mg Tablet PO PRN (20:40)
[2019-09-08] MEDS: HYDROcodone/Acetaminophen 10/325 mg Tablet PO PRN ×3 (08:46→20:22)
[2019-09-08] MEDS: Folic Acid 1 MG TAB PO SCH (08:49)
[2019-09-08] MEDS: Clopidogrel Bisulfate 75 MG TAB PO SCH (08:49)
[2019-09-08] MEDS: DULoxetine 30 MG CAP PO SCH ×2 (08:49→20:20)
[2019-09-08] MEDS: Carvedilol 6.25 MG TAB PO SCH ×2 (08:49→20:22)
[2019-09-08] MEDS: Milk Of Magnesia 30 ML UDCUP PO SCH (08:50)
[2019-09-08] MEDS: Cyanocobalamin (Vitamin B-12) 1,000 MCG TAB PO SCH (08:50)
[2019-09-08] MEDS: Gabapentin 300 MG CAP PO SCH ×2 (08:50→20:21)
[2019-09-08] MEDS: Aspirin Chewable 81 MG TAB PO SCH (08:50)
[2019-09-08] MEDS ORDERED: Bisacodyl 10 MG SUPP PR ONE (13:01)
--- NOTE | 2019-09-08 13:09 | PQF ---
MAUREEN BADILLO BEST PERERA [id number] U-[id number] CLINICAL DOCUMENTATION IMPROVEMENT CLARIFICATION FORM: ICD-10 Updated PLEASE DO AN ADDENDUM TO THE PROGRESS NOTE WITH ANY DOCUMENTATION UPDATES OR ADDITIONS AND CARRY THROUGH TO DC SUMMARY. THANK YOU. DATE: 09/08/19 ATTN: Dr. Coe, Please exercise your independent, professional judgment in responding to the clarification form. Clinical indicators are provided on the bottom of this form for your review Please check appropriate box(s): [ X ] Traumatic Rhabdomyolosis [ ] Non traumatic Rhabdomyolosis [ ] Other diagnosis [ ] Unable to determine In addition, please specify: Present on Admission (POA): [ X ] Yes [ ] No [ ] Unable to determine For continuity of documentation, please document condition throughout progress notes and discharge summary. Thank You. CLINICAL INDICATORS - SIGNS / SYMPTOMS / LABS / RESULTS AND LOCATION IN MR Abnormal labs (BUN, creatinine, low GFR)--> 09/03 bun 39, creat 3.13, GFR 14; 09/04 bun 23, creat 1.42, GFR 35--09/06 bun 15, creat 0.91, GFR 59 per lab 09/03 lab: CK 432 RISK FACTORS / RESULTS AND LOCATION IN MR Dehydration-->" acute kidney injury with baseline CKD 3" per H&P(Ishfaq) 09/03 Khan: "09/02 CT chest: multiple rib fractures" TREATMENTS / RESULTS AND LOCATION IN MR Nephrology consult 09/03 orders 09/03-09/04 NS at 100 per orders 09/03 PT/OT orders (This form is maintained as a part of the permanent medical record) 2014 [employer], [place]. All Rights Reserved Johnna Blum, RN, BSN, CCDS [email or web address]
[2019-09-08] MEDS ORDERED: Bisacodyl 10 MG SUPP PR SCH (13:15)
--- NOTE | 2019-09-08 13:20 | PQF ---
JUSTINOBEST CORDOBA [id number] [facility]-C08 [id number] CLINICAL DOCUMENTATION IMPROVEMENT CLARIFICATION FORM: ICD-10 Updated PLEASE DO AN ADDENDUM TO THE PROGRESS NOTE WITH ANY DOCUMENTATION UPDATES OR ADDITIONS AND CARRY THROUGH TO DC SUMMARY. THANK YOU. DATE: 09/08/19 ATTN: Dr. Coe, Please exercise your independent, professional judgment in responding to the clarification form. Clinical indicators are provided on the bottom of this form for your review Please check appropriate box(s): Systolic HEART FAILURE: A. ACUITY [ ] Acute on Chronic [ X ] Chronic [ ] Other diagnosis [ ] Unable to determine In addition, please specify: Present on Admission (POA): [ X ] Yes [ ] No [ ] Unable to determine For continuity of documentation, please document condition throughout progress notes and discharge summary. Thank You. 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 Kahn(Renal) Elevated BNP 619 09/03 lab 09/03 CXR: small effusion 09/07 Saravanan: "chronic systolic HF" RISKS FACTORS / RESULTS AND LOCATION IN EMR History of "CAD s/p PCI, HTN, CKD, post AICD" per H&P 09/03-([facility]) TREATMENTS / RESULTS AND LOCATION IN EMR Cardiac monitoring / telemetry-[facility] 09/03 per orders Administration of BB--> Coreg 6.25 mg po bid 09/04 to date per orders IV Diuretics--> 09/04 lasix 40mg ivp now; 09/07 lasix 40mg ivp now per orders Oxygen-->09/03 4L NC to 3L NC to date per orders Cardiology Consult 09/03 orders (This form is maintained as a part of the permanent medical record) 2014 [email or web address]. All Rights Reserved Johnna Blum RN, BSN, CCDS [email or web address]
[2019-09-08] MEDS: cefTRIAXone\\ROCEPHIN 1 GM in Sodium Chloride 0.9% 100 ML IVPB SCH (14:57)
--- NOTE | 2019-09-08 15:28 | PDOC.HOSPP ---
- Subjective Encounter Date: 09/08/19 Encounter Time: 15:27 Subjective: Ms. Buck was seen today in follow-up of rib fractures. She says the pain is better controlled. - Objective Vital Signs & Weight: Vital Signs (12 hours) Temp Pulse Resp BP BP Pulse Ox 09/08/19 08:49 115/74 09/08/19 08:00 97.4 F L 80 15 126/65 94 L Weight Weight 176 lb 1.6 oz Most Recent Monitor Data Heart Rate from ECG 107 NIBP 106/77 NIBP BP-Mean 86 Respiration from ECG 14 SpO2 90 I&O: 09/07/19 09/08/19 09/09/19 06:59 06:59 06:59 Intake Total 1240 1615 Output Total 1500 2775 Balance -260 -1160 Result Diagrams: 09/07/19 05:43 09/06/19 05:45 Hospitalist ROS - Medication Medications: Active Medications Generic Name Dose Route Start Last Admin Trade Name Freq PRN Reason Stop Dose Admin Hydrocodone Bitart/Acetaminophen 1 tab 09/06/19 15:26 09/07/19 11:59 [place] 5/325 PO 1 tab Q4H PRN Administration Moderate Pain (4-6) Hydrocodone Bitart/Acetaminophen 1 tab 09/07/19 14:17 09/08/19 13:53 [place] 10/325 PO 1 tab Q4H PRN Administration Moderate to Severe Pain (6-10) Aspirin 81 mg 09/03/19 09:00 09/08/19 08:50 Aspirin Chewable PO 81 mg DAILY SHANNON Administration Atorvastatin Calcium 20 mg 09/04/19 21:00 09/07/19 20:39 Lipitor PO 20 mg HS SHANNON Administration Carvedilol 6.25 mg 09/04/19 21:00 09/08/19 08:49 Coreg PO 6.25 mg BID SHANNON Administration Clopidogrel Bisulfate 75 mg 09/04/19 09:00 09/08/19 08:49 Plavix PO 75 mg DAILY SHANNON Administration Cyanocobalamin 1,000 mcg 09/03/19 09:00 09/08/19 08:50 Vitamin B-12 PO 1,000 mcg DAILY SHANNON Administration Cyclobenzaprine HCl 10 mg 09/04/19 09:45 09/06/19 09:17 Flexeril PO 10 mg TID PRN Administration Muscle Spasm Duloxetine HCl 30 mg 09/03/19 09:00 09/08/19 08:49 Cymbalta PO 30 mg BID SHANNON Administration Fentanyl 12 mcg 09/06/19 16:00 09/06/19 16:34 Duragesic TD 12 mcg Q3D SHANNON Administration Folic Acid 1 mg 09/05/19 09:00 09/08/19 08:49 Folvite PO 1 mg DAILY SHANNON Administration Gabapentin 300 mg 09/04/19 21:00 09/08/19 08:50 Neurontin PO 300 mg BID SHANNON Administration Ceftriaxone Sodium 1 gm/ 100 mls @ 200 mls/hr 09/07/19 14:00 09/08/19 14:57 Sodium Chloride IVPB 100 mls Q24HR SHANNON Administration Magnesium Hydroxide 30 ml 09/08/19 09:00 09/08/19 08:50 Milk Of Magnesium PO 30 ml DAILY SHANNON Administration Pantoprazole Sodium 40 mg 09/05/19 09:00 09/08/19 08:50 Protonix PO 40 mg DAILY SHANNON Administration Sodium Chloride 10 ml 09/04/19 09:00 09/08/19 08:51 Flush - Normal Saline IVF 10 ml Q12HR SHANNON Administration - Exam Eye: PERRL Heart: RRR, no murmur, no gallops, no rubs, normal peripheral pulses Respiratory: CTAB, no wheezes, no rales, no ronchi, normal chest expansion, no tachypnea, normal percussion Gastrointestinal: soft, non-tender, non-distended, normal bowel sounds, no palpable masses, no hepatomegaly Extremities: 1+ LE edema (trace lower extremity edema) Hosp A/P (1) Closed rib fracture Code(s): S22.39XA - FRACTURE OF ONE RIB, UNSP SIDE, INIT FOR CLOS FX Status: Acute (2) Chronic systolic heart failure, ACC/AHA stage C Code(s): I50.22 - CHRONIC SYSTOLIC (CONGESTIVE) HEART FAILURE Status: Chronic (3) Diabetes type 2, controlled Code(s): E11.9 - TYPE 2 DIABETES MELLITUS WITHOUT COMPLICATIONS Status: Chronic (4) Dyslipidemia Code(s): E78.5 - HYPERLIPIDEMIA, UNSPECIFIED Status: Chronic (5) Hypertension Code(s): I10 - ESSENTIAL (PRIMARY) HYPERTENSION Status: Chronic Qualifiers: (6) UTI (urinary tract infection) Status: Acute - Plan * Accidental fall with the fracture of the 8th through 12th ribs on the right with pleural effusion-She says the pain is much better controlled today * Continue Incentive Spirometry * Chronic systolic heart failure- compensated * UTI- UA noted- will add Rocephin,and await culture results * DM- blood glucose is stable * HTN- controlled * Continue PT/OT * She has been accepted to Rehab, hopefully transfer tomorrow
--- NOTE | 2019-09-08 17:32 | PDOC.CPN ---
- Subjective Date: 09/08/19 Time: 17:29 Interval history: Doing much better. She had a BM and has been diuresing well. She is still needing 3L NC. - Review of Systems General: denies: fever/chills, weight/appetite/sleep changes, night sweats, fatigue Respiratory: denies: cough, congestion, shortness of breath, exercise intolerance Cardiovascular: denies: chest pain, palpitation, edema, paroxysmal nocturnal dyspnea, orthopnea Gastrointestinal: denies: nausea, vomiting, diarrhea, constipation, abd pain, GI bleeding Musculoskeletal: denies: pain, tenderness, stiffness, swelling, arthritis/ arthralgias Neurological: denies: numbness, syncope, seizure, weakness - Objective Allergies/Adverse Reactions: Allergies Allergy/AdvReac Type Severity Reaction Status Date / Time No Known Allergies Allergy Verified 12/24/18 02:28 Visit Medications: Current Medications Acetaminophen (Tylenol) 650 mg PO Q4H PRN PRN Reason: Headache/Fever/Mild Pain (1-3) Hydrocodone Bitart/Acetaminophen ([place] 5/325) 1 tab PO Q4H PRN PRN Reason: Moderate Pain (4-6) Last Admin: 09/07/19 11:59 Dose: 1 tab Hydrocodone Bitart/Acetaminophen ([place] 10/325) 1 tab PO Q4H PRN PRN Reason: Moderate to Severe Pain (6-10) Last Admin: 09/08/19 13:53 Dose: 1 tab Aspirin (Aspirin Chewable) 81 mg PO DAILY [facility] Last Admin: 09/08/19 08:50 Dose: 81 mg Atorvastatin Calcium (Lipitor) 20 mg PO HS [facility] Last Admin: 09/07/19 20:39 Dose: 20 mg Bisacodyl (Dulcolax) 10 mg [place] DAILYPRN PRN PRN Reason: Constipation Carvedilol (Coreg) 6.25 mg PO BID [facility] Last Admin: 09/08/19 08:49 Dose: 6.25 mg Clopidogrel Bisulfate (Plavix) 75 mg PO DAILY [facility] Last Admin: 09/08/19 08:49 Dose: 75 mg Cyanocobalamin (Vitamin B-12) 1,000 mcg PO DAILY [facility] Last Admin: 09/08/19 08:50 Dose: 1,000 mcg Cyclobenzaprine HCl (Flexeril) 10 mg PO TID PRN PRN Reason: Muscle Spasm Last Admin: 09/06/19 09:17 Dose: 10 mg Duloxetine HCl (Cymbalta) 30 mg PO BID [facility] Last Admin: 09/08/19 08:49 Dose: 30 mg Fentanyl (Duragesic) 12 mcg TD Q3D [facility] Last Admin: 09/06/19 16:34 Dose: 12 mcg Folic Acid (Folvite) 1 mg PO DAILY [facility] Last Admin: 09/08/19 08:49 Dose: 1 mg Gabapentin (Neurontin) 300 mg PO BID [facility] Last Admin: 09/08/19 08:50 Dose: 300 mg Ceftriaxone Sodium 1 gm/ (Sodium Chloride) 100 mls @ 200 mls/hr IVPB Q24HR [facility] Last Admin: 09/08/19 14:57 Dose: 100 mls Magnesium Hydroxide (Milk Of Magnesium) 30 ml PO DAILY [facility] Last Admin: 09/08/19 08:50 Dose: 30 ml Pantoprazole Sodium (Protonix) 40 mg PO DAILY [facility] Last Admin: 09/08/19 08:50 Dose: 40 mg Senna/Docusate Sodium (Senokot S) 2 tab PO BID PRN PRN Reason: Constipation Sodium Chloride (Flush - Normal Saline) 10 ml IVF Q12HR [facility] Last Admin: 09/08/19 08:51 Dose: 10 ml Sodium Chloride (Flush - Normal Saline) 10 ml IVF PRN PRN PRN Reason: Saline Flush Vital Signs & Weight: Vital Signs Temp Pulse Resp BP BP Pulse Ox 09/08/19 16:00 97.4 F L 89 18 115/74 94 L 09/08/19 08:49 115/74 09/08/19 08:00 97.4 F L 80 15 126/65 94 L Weight 176 lb 1.6 oz - Physical Exam General: alert & oriented x3, no apparent distress HEENT: mucus membranes moist, normocephaly Neck: supple neck, midline trachea Cardiac: regular rate and rhythm, no murmur Lungs: normal breath sounds Neuro: grossly intact Abdomen: active bowel sounds, soft, non-tender Extremities: no cyanosis, no clubbing, 1+ LE edema Skin: clear Musculoskeletal: no pain - Labs Result Diagrams: 09/07/19 05:43 09/06/19 05:45 Troponin/CKMB CK-MB (CK-2) 11.8 ng/mL (0-6.6) H* 09/03/19 04:59 Troponin I 2.883 ng/mL (< 0.028) H* 09/03/19 09:06 - Assessment/Plan Assessment/Plan: 1. NSTEMi, Type 2 demand ischemia most likely 2. STACI, normalized now. 3. Non ischemic CM. EF at 40-45% on echo last week, improved. 4. Constipation 5. S/P Fall and multiple rib fractures. PLAN; - Will give on more dose IV lasix tomorrow morning. - Will check labs - Continue daily scheduled MOM. - Will need Inpt rehab most likely.
--- NOTE | 2019-09-08 19:15 | PRG ---
DATE OF SERVICE: 09/08/2019 SUBJECTIVE: Wu Buck has no complaints today. She is afebrile. She still had not had a bowel movement. I ordered a dulcolax suppository earlier today. OBJECTIVE: VITAL SIGNS: Blood pressure 126/65, respiratory rate in the teens. Her daughter says she finally feels like mom is close to being back to normal. LUNGS: Clear. HEART: Regular rhythm. ABDOMEN: Soft. IMPRESSION: 1. Rib fractures. 2. Sensitivity to some pain medications in this admission. 3. Diabetes. 4. Lipid disorder. 5. Hypertension. PLAN: It is just small hemothorax. It does not need placement of a chest tube. Not having any significant other medical issues. She is stable to go into rehab environment once the diabetes has been improved and once she has had a bowel movement. Job ID: [id number]
[2019-09-08] MEDS: Atorvastatin Calcium 20 MG TAB PO SCH (20:20)
[2019-09-09 06:11] LABS: #Eosinphils 0.3 thou/uL (0.0-0.7); #Lymphocytes 1.8 thou/uL (1.20-3.40); #Monocytes 0.4 thou/uL (0.11-0.59); #Neutrophils 2.9 thou/uL (1.40-6.50); %Basophils 0.2 % (0.0-1.0); %Lymphocytes 33.4 % (21.0-51.0); %Monocytes 7.5 % (0.0-10.0); %Neutrophils 53.8 % (42.0-75.0); Hemoglobin 9.7 g/dL (12.0-16.0); Mean Corpuscular HGB CONC 33.8 g/dL (32.0-36.0); Mean Corpuscular Hemoglobin 33.3 pg (27.0-31.0); Mean Corpuscular Volume 98.6 fL (78.0-98.0); Mean Platelet Volume 7.9 fL (7.4-10.4); Platelet Count 231 thou/uL (130-400); RBC Distribution Width 13.8 % (11.5-14.5); White Blood Cell (WBC) Count 5.5 thou/uL (4.8-10.8)
[2019-09-09 06:30] LABS: Anion Gap 12 mmol/L (10-20); BUN (Urea Nitrogen) 15 mg/dL (9.8-20.1); Calc. Creatinine Clearance 50 mL/min (70-130); Calcium 9.1 mg/dL (7.8-10.44); Carbon Dioxide 37 mmol/L (23-31); Chloride 97 mmol/L (98-107); Estimated GFR-MDRD 48; Glucose 117 mg/dL (83-110); Potassium 4.4 mmol/L (3.5-5.1); Sodium 142 mmol/L (136-145)
[2019-09-09] MEDS: Clopidogrel Bisulfate 75 MG TAB PO SCH (08:22)
[2019-09-09] MEDS: Folic Acid 1 MG TAB PO SCH (08:22)
[2019-09-09] MEDS: Aspirin Chewable 81 MG TAB PO SCH (08:22)
[2019-09-09] MEDS: Cyanocobalamin (Vitamin B-12) 1,000 MCG TAB PO SCH (08:22)
[2019-09-09] MEDS: DULoxetine 30 MG CAP PO SCH (08:22)
[2019-09-09] MEDS: Gabapentin 300 MG CAP PO SCH (08:22)
[2019-09-09] MEDS: Milk Of Magnesia 30 ML UDCUP PO SCH (08:24)
[2019-09-09] MEDS ORDERED: Furosemide 40 MG/4 ML VIAL SLOW IVP SCH (09:00)
[2019-09-09] MEDS: HYDROcodone/Acetaminophen 10/325 mg Tablet PO PRN ×2 (09:19→18:20)
[2019-09-09] MEDS: Carvedilol 6.25 MG TAB PO SCH (10:28)
--- NOTE | 2019-09-09 13:56 | PDOC.HOSPP ---
- Subjective Encounter Date: 09/09/19 Encounter Time: 13:54 Subjective: Ms. Buck was seen today in follow-up of multiple rib fractures. She does not have any complaints. - Objective Vital Signs & Weight: Vital Signs (12 hours) Temp Pulse Resp BP Pulse Ox 09/09/19 11:22 97.6 F 95 20 121/80 94 L 09/09/19 08:00 94 L 09/09/19 07:25 97.7 F 76 20 103/56 L 94 L 09/09/19 07:18 94 L Weight Weight 176 lb Most Recent Monitor Data Heart Rate from ECG 107 NIBP 106/77 NIBP BP-Mean 86 Respiration from ECG 14 SpO2 90 I&O: 09/08/19 09/09/19 09/10/19 06:59 06:59 06:59 Intake Total 1615 210 Output Total 2775 Balance -1160 210 Result Diagrams: 09/09/19 05:51 09/09/19 05:51 Hospitalist ROS - Medication Medications: Active Medications Generic Name Dose Route Start Last Admin Trade Name Freq PRN Reason Stop Dose Admin Hydrocodone Bitart/Acetaminophen 1 tab 09/06/19 15:26 09/07/19 11:59 [place] 5/325 PO 1 tab Q4H PRN Administration Moderate Pain (4-6) Hydrocodone Bitart/Acetaminophen 1 tab 09/07/19 14:17 09/09/19 09:19 [place] 10/325 PO 1 tab Q4H PRN Administration Moderate to Severe Pain (6-10) Aspirin 81 mg 09/03/19 09:00 09/09/19 08:22 Aspirin Chewable PO 81 mg DAILY SHANNON Administration Atorvastatin Calcium 20 mg 09/04/19 21:00 09/08/19 20:20 Lipitor PO 20 mg HS SHANNON Administration Clopidogrel Bisulfate 75 mg 09/04/19 09:00 09/09/19 08:22 Plavix PO 75 mg DAILY SHANNON Administration Cyanocobalamin 1,000 mcg 09/03/19 09:00 09/09/19 08:22 Vitamin B-12 PO 1,000 mcg DAILY SHANNON Administration Cyclobenzaprine HCl 10 mg 09/04/19 09:45 09/06/19 09:17 Flexeril PO 10 mg TID PRN Administration Muscle Spasm Duloxetine HCl 30 mg 09/03/19 09:00 09/09/19 08:22 Cymbalta PO 30 mg BID SHANNON Administration Fentanyl 12 mcg 09/06/19 16:00 09/06/19 16:34 Duragesic TD 12 mcg Q3D SHANNON Administration Folic Acid 1 mg 09/05/19 09:00 09/09/19 08:22 Folvite PO 1 mg DAILY SHANNON Administration Gabapentin 300 mg 09/04/19 21:00 09/09/19 08:22 Neurontin PO 300 mg BID SHANNON Administration Ceftriaxone Sodium 1 gm/ 100 mls @ 200 mls/hr 09/07/19 14:00 09/08/19 14:57 Sodium Chloride IVPB 100 mls Q24HR SHANNON Administration Magnesium Hydroxide 30 ml 09/08/19 09:00 09/09/19 08:24 Milk Of Magnesium PO Not Given DAILY SHANNON Pantoprazole Sodium 40 mg 09/05/19 09:00 09/09/19 08:22 Protonix PO 40 mg DAILY SHANNON Administration Sodium Chloride 10 ml 09/04/19 09:00 09/09/19 09:23 Flush - Normal Saline IVF 10 ml Q12HR SHANNON Administration - Exam Eye: PERRL, anicteric sclera Heart: RRR, no murmur, no gallops, no rubs, normal peripheral pulses Respiratory: CTAB, no wheezes, no rales, no ronchi, normal chest expansion Gastrointestinal: soft, non-tender, non-distended, normal bowel sounds, no hepatomegaly, no splenomegaly Extremities: no cyanosis, no clubbing, no edema Hosp A/P (1) Closed rib fracture Code(s): S22.39XA - FRACTURE OF ONE RIB, UNSP SIDE, INIT FOR CLOS FX Status: Acute (2) Chronic systolic heart failure, ACC/AHA stage C Code(s): I50.22 - CHRONIC SYSTOLIC (CONGESTIVE) HEART FAILURE Status: Chronic (3) Diabetes type 2, controlled Code(s): E11.9 - TYPE 2 DIABETES MELLITUS WITHOUT COMPLICATIONS Status: Chronic (4) Dyslipidemia Code(s): E78.5 - HYPERLIPIDEMIA, UNSPECIFIED Status: Chronic (5) Hypertension Code(s): I10 - ESSENTIAL (PRIMARY) HYPERTENSION Status: Chronic Qualifiers: (6) UTI (urinary tract infection) Status: Acute - Plan * Accidental fall with the fracture of the 8th through 12th ribs on the right with pleural effusion-She says the pain is much better controlled today * Continue Incentive Spirometry * Chronic systolic heart failure- compensated * UTI- Urine culture is growing E. Coli, based on sensitivities will change to Omnicef * DM- blood glucose is stable * HTN- controlled * Will transfer to Rehab today
[2019-09-09] MEDS: cefTRIAXone\\ROCEPHIN 1 GM in Sodium Chloride 0.9% 100 ML IVPB SCH (14:43)
[2019-09-09 16:45] VITALS: BP 135/83; TEMP 98.5
--- NOTE | 2019-09-09 17:49 | PDOC.CPN ---
- Subjective Date: 09/09/19 Time: 17:46 Interval history: She is feeling better. Has diuresed well. Breathing easier and only on 2L now. - Review of Systems General: denies: fever/chills, weight/appetite/sleep changes, night sweats, fatigue Respiratory: denies: cough, congestion, shortness of breath, exercise intolerance Cardiovascular: reports: edema. denies: chest pain, palpitation, paroxysmal nocturnal dyspnea, orthopnea Gastrointestinal: denies: nausea, vomiting, diarrhea, constipation, abd pain, GI bleeding Musculoskeletal: denies: pain, tenderness, stiffness, swelling, arthritis/ arthralgias Neurological: denies: numbness, syncope, seizure, weakness - Objective Allergies/Adverse Reactions: Allergies Allergy/AdvReac Type Severity Reaction Status Date / Time No Known Allergies Allergy Verified 12/24/18 02:28 Visit Medications: Current Medications Acetaminophen (Tylenol) 650 mg PO Q4H PRN PRN Reason: Headache/Fever/Mild Pain (1-3) Hydrocodone Bitart/Acetaminophen ([place] 5/325) 1 tab PO Q4H PRN PRN Reason: Moderate Pain (4-6) Last Admin: 09/07/19 11:59 Dose: 1 tab Hydrocodone Bitart/Acetaminophen ([place] 10/325) 1 tab PO Q4H PRN PRN Reason: Moderate to Severe Pain (6-10) Last Admin: 09/09/19 09:19 Dose: 1 tab Aspirin (Aspirin Chewable) 81 mg PO DAILY [facility] Last Admin: 09/09/19 08:22 Dose: 81 mg Atorvastatin Calcium (Lipitor) 20 mg PO HS [facility] Last Admin: 09/08/19 20:20 Dose: 20 mg Bisacodyl (Dulcolax) 10 mg [place] DAILYPRN PRN PRN Reason: Constipation Carvedilol (Coreg) 3.125 mg PO BID [facility] Cefdinir (Omnicef) 300 mg PO BID [facility] Clopidogrel Bisulfate (Plavix) 75 mg PO DAILY [facility] Last Admin: 09/09/19 08:22 Dose: 75 mg Cyanocobalamin (Vitamin B-12) 1,000 mcg PO DAILY [facility] Last Admin: 09/09/19 08:22 Dose: 1,000 mcg Cyclobenzaprine HCl (Flexeril) 10 mg PO TID PRN PRN Reason: Muscle Spasm Last Admin: 09/06/19 09:17 Dose: 10 mg Duloxetine HCl (Cymbalta) 30 mg PO BID [facility] Last Admin: 09/09/19 08:22 Dose: 30 mg Fentanyl (Duragesic) 12 mcg TD Q3D [facility] Last Admin: 09/09/19 16:41 Dose: 12 mcg Folic Acid (Folvite) 1 mg PO DAILY [facility] Last Admin: 09/09/19 08:22 Dose: 1 mg Gabapentin (Neurontin) 300 mg PO BID [facility] Last Admin: 09/09/19 08:22 Dose: 300 mg Ceftriaxone Sodium 1 gm/ (Sodium Chloride) 100 mls @ 200 mls/hr IVPB Q24HR [facility] Last Admin: 09/09/19 14:43 Dose: Not Given Magnesium Hydroxide (Milk Of Magnesium) 30 ml PO DAILY [facility] Last Admin: 09/09/19 08:24 Dose: Not Given Pantoprazole Sodium (Protonix) 40 mg PO DAILY [facility] Last Admin: 09/09/19 08:22 Dose: 40 mg Senna/Docusate Sodium (Senokot S) 2 tab PO BID PRN PRN Reason: Constipation Sodium Chloride (Flush - Normal Saline) 10 ml IVF Q12HR [facility] Last Admin: 09/09/19 09:23 Dose: 10 ml Sodium Chloride (Flush - Normal Saline) 10 ml IVF PRN PRN PRN Reason: Saline Flush Vital Signs & Weight: Vital Signs Temp Pulse Resp BP Pulse Ox 09/09/19 16:29 98.5 F 94 20 135/83 93 L 09/09/19 11:22 97.6 F 95 20 121/80 94 L 09/09/19 08:00 94 L 09/09/19 07:25 97.7 F 76 20 103/56 L 94 L 09/09/19 07:18 94 L Weight 176 lb - Physical Exam General: alert & oriented x3 HEENT: mucus membranes moist Neck: supple neck Cardiac: regular rate and rhythm, no murmur Lungs: clear to auscultation Neuro: grossly intact Abdomen: active bowel sounds, soft, non-tender Extremities: no edema Skin: clear Musculoskeletal: no pain - Labs Result Diagrams: 09/09/19 05:51 09/09/19 05:51 Troponin/CKMB CK-MB (CK-2) 11.8 ng/mL (0-6.6) H* 09/03/19 04:59 Troponin I 2.883 ng/mL (< 0.028) H* 09/03/19 09:06 - Assessment/Plan Assessment/Plan: 1. NSTEMi, Type 2 demand ischemia most likely 2. STACI, normalized now. 3. Non ischemic CM. EF at 40-45% on echo last week, improved. 4. Constipation 5. S/P Fall and multiple rib fractures. PLAN; - Back to her home dose of PO lasix at 40 mg PO daily - Restart Entresto per home dose. - Continue O2 supplementation at 2L as needed to keep sats above 90. - OK to transfer to inpt rehab at any time from cardiac perspective. - May need home O2 on discharge from rehab.
[2019-09-09] MEDS ORDERED: Cefdinir 300 MG CAP PO SCH (21:00)
[2019-09-09] MEDS ORDERED: Carvedilol 3.125 MG TAB PO SCH (21:00)
[2019-09-10] MEDS ORDERED: Furosemide 40 MG TAB PO SCH (07:30)
--- NOTE | 2019-09-10 11:11 | DIS ---
DATE OF ADMISSION: 09/03/2019 DATE OF DISCHARGE: 09/09/2019 PRIMARY CARE PHYSICIAN: Isabela Kenney PA-C DISCHARGE DISPOSITION: To inpatient rehab. DISCHARGE DIAGNOSES: 1. Closed rib fractures on the 8th through the 12th rib. 2. Acute respiratory failure with hypoxemia secondary to #1. 3. Chronic systolic heart failure. 4. Hypertension. 5. [id number] myocardial infarction type 2. 6. Diabetes mellitus. 7. Escherichia coli. DISCHARGE MEDICATIONS: Include: 1. Entresto one tablet twice daily. 2. Protonix 40 mg daily. 3. Folic acid 1 mg daily. 4. Duragesic patch 12 mcg every 3 days. 5. Vitamin B12 of 1000 mcg p.o. daily. 6. Omnicef 300 mg twice a day. 7. Aspirin 81 mg daily. 8. Simvastatin 10 mg q.h.s. 9. Loratadine 10 mg daily. 10. [place] 10/325 q.4 hours as needed. 11. Gabapentin 300 mg p.o. twice daily. 12. Lasix 40 mg daily. 13. Flexeril 10 mg t.i.d. 14. Plavix 75 mg daily. 15. Carvedilol 6.25 mg twice a day. PROCEDURES DONE DURING ADMISSION/LABORATORY AND IMAGING DATA: The patient had an echocardiogram, which demonstrated an ejection fraction of 40% to 45%. There was diffuse and moderate concentric left ventricular hypertrophy. CODE STATUS: Full code. ALLERGIES: NO KNOWN DRUG ALLERGIES. HOSPITAL COURSE: Ms. Buck is a pleasant 83-year-old female, who suffered a fall at home. This was accidental. She fell on a table and fractured her 8th through 12th ribs. She was admitted to the hospital due to severe pain. She was also found to have acute kidney injury, likely due to volume depletion. She was hydrated, which corrected her acute kidney injury. She had an elevation of her troponins, which was felt to be due to demand ischemia. She was seen by Cardiology for this. She also had some mild volume overload after she had been fluid resuscitated and was diuresed. During this time, her pain was controlled and she was seen by Pulmonology and underwent incentive spirometry as well as aggressive pulmonary toilet. She was felt to be too weak to return home and would require some additional rehabilitation and was discharged on 09/09/2019 to rehab. She has also developed the urinary tract infection during her hospital stay and is being treated with Omnicef for this. Urine culture grew Escherichia coli, which was sensitive to cephalosporins. Job ID: [id number]
== END 2019-09-09 18:27 | DRG 183 ==
LOC: ERS 04:24 → ERHOLD 06:20 → CCU 07:36 → IMCU/EMU 09-04 10:57 → T4-B 09-05 13:00
PROVIDERS: ADMIT Internal Medicine; ATTEND Internal Medicine
DX: S22.41XA Multiple fractures of ribs, right side, initial encounter for closed fracture (principal); J96.01 Acute respiratory failure with hypoxia; I21.A1 Myocardial infarction type 2; N17.9 Acute kidney failure, unspecified; I50.22 Chronic systolic (congestive) heart failure; I13.0 Hypertensive heart and chronic kidney disease with heart failure and stage 1 through stage 4 chronic kidney disease, or unspecified chronic kidney disease; J90 Pleural effusion, not elsewhere classified; N39.0 Urinary tract infection, site not specified; J98.11 Atelectasis; E86.0 Dehydration; I44.7 Left bundle-branch block, unspecified; E78.5 Hyperlipidemia, unspecified; T79.6XXA Traumatic ischemia of muscle, initial encounter; W19.XXXA Unspecified fall, initial encounter; M19.90 Unspecified osteoarthritis, unspecified site; E11.22 Type 2 diabetes mellitus with diabetic chronic kidney disease; M81.0 Age-related osteoporosis without current pathological fracture; N18.3 Chronic kidney disease, stage 3 (moderate); K21.9 Gastro-esophageal reflux disease without esophagitis; I25.10 Atherosclerotic heart disease of native coronary artery without angina pectoris; Z96.652 Presence of left artificial knee joint; R42 Dizziness and giddiness; E86.9 Volume depletion, unspecified; I25.5 Ischemic cardiomyopathy; K59.00 Constipation, unspecified; Y92.019 Unspecified place in single-family (private) house as the place of occurrence of the external cause; Z90.49 Acquired absence of other specified parts of digestive tract; Z87.891 Personal history of nicotine dependence; Z79.899 Other long term (current) drug therapy; Z85.3 Personal history of malignant neoplasm of breast; Z95.810 Presence of automatic (implantable) cardiac defibrillator; Z79.02 Long term (current) use of antithrombotics/antiplatelets; Z79.82 Long term (current) use of aspirin; Z95.5 Presence of coronary angioplasty implant and graft
CPT/HCPCS: 36415; 36416; 51702; 71045; 71250; 74176; 80048; 80053; 81001; 81003; 81015; 82550; 82553; 83880; 84484; 85025; 85610; 85730; 87077; 87086; 87186; 93005; 93010; 93306; 96361; 96372; 96374; A4353; C9113; J0696; J1650; J1940; J2270; J2405; J3490

== ENCOUNTER 2020-03-03 01:33 | Inpatient (IN) | payer MEDICARE, BC, OTHER ==
[2020-03-03] MEDS ORDERED: Aspirin Chewable 81 MG TAB ONE (01:51)
[2020-03-03 02:01] LABS: #Basophils 0.1 thou/uL (0.0-0.2); #Eosinphils 0.3 thou/uL (0.0-0.7); #Lymphocytes 2.1 thou/uL (1.20-3.40); #Monocytes 0.7 thou/uL (0.11-0.59); #Neutrophils 7.3 thou/uL (1.40-6.50); %Basophils 0.9 % (0.0-1.0); %Eosinophils 2.9 % (0.0-10.0); %Lymphocytes 19.8 % (21.0-51.0); %Monocytes 6.8 % (0.0-10.0); %Neutrophils 69.5 % (42.0-75.0); Mean Corpuscular HGB CONC 31.8 g/dL (32.0-36.0); Mean Corpuscular Hemoglobin 29.6 pg (27.0-31.0); Mean Platelet Volume 7.8 fL (7.4-10.4); Platelet Count 335 thou/uL (130-400); RBC Distribution Width 15.6 % (11.5-14.5); Red Blood Cell (RBC) Count 2.36 mill/uL (4.20-5.40); White Blood Cell (WBC) Count 10.5 thou/uL (4.8-10.8)
[2020-03-03 02:28] LABS: ALT (SGPT) 7 U/L (8-55); AST (SGOT) 12 U/L (5-34); Albumin 4.1 g/dL (3.4-4.8); Alkaline Phosphatase 64 U/L (40-110); Anion Gap 13 mmol/L (10-20); BUN (Urea Nitrogen) 31 mg/dL (9.8-20.1); Bilirubin, Total 0.3 mg/dL (0.2-1.2); Calc. Creatinine Clearance 0 mL/min (70-130); Calcium 9.2 mg/dL (7.8-10.44); Carbon Dioxide 26 mmol/L (23-31); Chloride 105 mmol/L (98-107); Estimated GFR-MDRD 25; Globulin 2.9 g/dL (2.4-3.5); Glucose 172 mg/dL (83-110); Potassium 4.1 mmol/L (3.5-5.1); Sodium 140 mmol/L (136-145)
[2020-03-03] MEDS ORDERED: HYDROcodone/Acetaminophen 5/325 mg Tablet PO PRN (04:27)
[2020-03-03] MEDS ORDERED: Sodium Chloride 0.9% (PF) 10 ML VIAL FS PRN (04:52)
--- NOTE | 2020-03-03 05:11 | HP ---
CHIEF COMPLAINT: Shortness of breath. HISTORY OF PRESENT ILLNESS: The patient is an 84-year-old female with history of coronary artery disease, congestive heart failure, chronic kidney disease stage 3, type 2 diabetes mellitus, and hypertension, who presented to the hospital with complaints of shortness of breath for 1 day. The patient manages her volume status at home with Lasix as needed. She stated she has not taken the Lasix over the past several days. Her symptoms started yesterday with feeling tired and some shortness of breath with minimal exertion. The patient went to bed earlier tonight and she noticed that her shortness of breath has worsened dramatically after lying down, which prompted her to come to the emergency department. In the ER, she was found to be hypoxic on room air with oxygen saturation level of 89%. Her chest x-ray revealed bilateral infiltrates and cardiomegaly. REVIEW OF SYSTEMS: Negative except as noted in HPI. PAST MEDICAL HISTORY: As noted above. PAST SURGICAL HISTORY: Back surgery, ORIF of the right humerus, and lumpectomy of the left breast in addition to parathyroidectomy. The patient has a pacemaker and defibrillator placed in May 2019. SOCIAL HISTORY: The patient denies alcohol use or illicit drug use. She is a former smoker. PHYSICAL EXAMINATION: GENERAL: The patient is alert and oriented x3. HEENT: Head is normocephalic and atraumatic. Extraocular muscles are intact. NECK: Supple without JVD. CARDIAC: Revealed normal S1 and S2 without murmur, rubs, or gallops. Regular rate and rhythm were noted. CHEST: Auscultation revealed bilateral crackles at the bases. ABDOMEN: Soft, nontender, nondistended with bowel sounds were heard. EXTREMITIES: Reveal no pitting edema. NEUROLOGIC: Revealed normal cranial nerves 2 through 12 and normal motor and sensory examination. ASSESSMENT: 1. Acute hypoxic respiratory failure, likely due to exacerbation of congestive heart failure with reduced ejection fraction. This is supported by elevated BNP level and the pattern of pulmonary edema on chest x-ray. We will place the patient on telemetry. Start low-sodium diet with 1800 mL fluid restriction. Lasix 40 mg IV b.i.d. will be initiated. Her Entresto will be held due to borderline hypotension. Obtain echocardiogram. 2. Symptomatic anemia with hemoglobin level of 7. The patient had a recent episode of anemia a month ago and she was transfused. She stated that she was told her anemia is likely due to gastrointestinal bleeding associated with Plavix, which was discontinued, but the patient denied that any endoscopic procedure was performed. I will hold off on the transfusion this morning until the patient is diuresed with her first dose of Lasix. Consider transfusion late in the afternoon. GI consulted. Protonix 40 mg IV b.i.d. was also initiated. 3. Hypertension. The patient is currently somewhat hypotensive, so we will hold Entresto. Job ID: [id number]
[2020-03-03 05:12] LABS: Iron 16 ug/dL (50-170); Iron Binding Capacity, Total 399 mcg/dL (265-497)
[2020-03-03 05:17] LABS: Troponin I 0.034 ng/mL (< 0.028)
[2020-03-03] MEDS ORDERED: Furosemide 40 MG/4 ML VIAL ONE (05:52)
[2020-03-03] MEDS: Furosemide 40 MG/4 ML VIAL SLOW IVP SCH ×2 (06:05→13:21)
[2020-03-03] MEDS ORDERED: Sodium Chloride 0.9% 1,000 ML IV SCH (07:15)
[2020-03-03 07:36] VITALS: BMI 34.1
--- NOTE | 2020-03-03 07:41 | CT ---
PRELIMINARY REPORT/[facility]/EMERGENCY AFTER HOURS PROCEDURE: PROCEDURE: CT Chest without IV Contrast Material. HISTORY: Short of breath. TECHNIQUE: Axial images were performed without IV contrast with multiplanar reconstructions. COMPARISON: None . TECHNICAL QUALITY: Satisfactory . FINDINGS: Mild to moderate atherosclerosis and tortuosity thoracic aorta with no aneurysm. Mediasti num and hilar regions show no masses or lymphadenopathy. Normal size heart with no pericardial fluid. Previous coronary artery bypass grafts. Pacemaker leads in the RIGHT heart. 6.5 x 3.[address] adjacent to the RIGHT heart border consistent with pericardial cyst. Severe emphysematous changes both lung bustamante. Small bilateral pleural effusions. Linear scar versus discoid atelectasis both lung bases. Some peripheral fibrosis upper lung bustamante. No pulmonary consolidation or masses. Visualized upper abdomen shows suspected partially imaged LEFT peripelvic cyst with hydrone phrosis not excluded. No acute bony abnormality. Stranding throughout the LEFT breast with 2.5 cm soft tissue mass with pa rtial calcifications could be related to previous biopsy and radiation change or scarring clinical and mammographic correlation recommended. 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 Small bilater al pleural effusions. COPD. Suspected LEFT peripelvic cyst with hydronephrosis not excluded. Suspected breast biopsy with partially calcified soft tissue mass and clinical and mammographic corre lation recommended. ELECTRONICALLY SIGNED BY: Earl Chowdary MD Mar 03, 2020 3:23:22 AM CDT FINAL REPORT: CHEST CT WITHOUT CONTRAST: COMPARISON: 09/03/2019. HISTORY: Shortness of breath. FINDINGS: Limited evaluation of the mediastinum by the lack of IV contrast. No mass, lymphadenopathy or hematom a. Heart size is normal. Transvenous pacing wires/defibrillator wires are noted. Hypodensity adjacent to the right heart border is unchanged and may represent a pericardial cyst. Atherosclerosis of a nonaneurysmal aorta. Visualized solid organs are grossly unremarkable, with the exception of hypodensity in the left renal pelvis which is incompletely evaluated. Correlation made with a CT from 09/02/2019 does not demonstrate this hypodensity. The possibility of hydronephrosis cannot be excluded. Trachea and central bronchi are patent. Extensive emphysematous changes along parenchyma, greatest in the lung apices/upper lobes. There does appear to be irregular marginated opacity in the right lower lobe, measuring 0.9 x 0.6 cm. Based upon the coronal and sagittal images, the solid irregular m arginated density does abut the major fissure. Small bilateral pleural effusions with adjacent lung parenchymal changes favor atelectasis. Multiple old right rib fractures. Stable calcification in the left breast. IMPRESSION: 1. This report is in agreement with the initial report by [facility]. 2. COPD. Chronic lung parenchymal changes are suspected. 3. Indeterminate solid density adjacent to the right major fissure. Followup CT in 3 months is recomm ended. 4. Interval development of a hypodensity in the left renal pelvis. The possibility of hydronephrosis cannot be excluded. Dedicated renal stone CT is recommended. 5. Results of the study discussed with Adriana, patient's nurse, 03/03/2020 at 7:40 AM. Code CR Transcribed Date/Time: 03/03/2020 8:08 AM
[2020-03-03 08:15] LABS: Troponin I 0.034 ng/mL (< 0.028)
[2020-03-03] MEDS: Carvedilol 6.25 MG TAB PO SCH ×2 (09:16→17:20)
[2020-03-03] MEDS: Gabapentin 300 MG CAP PO SCH ×2 (09:16→20:21)
[2020-03-03] MEDS: Aspirin Chewable 81 MG TAB PO SCH (09:16)
[2020-03-03] MEDS: Pantoprazole 40 MG VIAL IVP SCH ×2 (09:16→20:22)
--- NOTE | 2020-03-03 09:26 | RAD ---
SINGLE VIEW OF THE CHEST: COMPARISON: 09/06/2019. HISTORY: Shortness of breath/dyspnea. FINDINGS: A single view of the chest shows an enlarged but stable cardiomediastinal silhouette. The pacemaker is unchanged in position. Right basilar atelectasis is seen. There is no evidence of consolidation, mass, or pleural effusion. Increased interstitial lung markings are present with emphysematous mitchell ges in the lung apices. IMPRESSION: No evidence of acute cardiopulmonary disease. POS: YAMILA
[2020-03-03] MEDS ORDERED: Cyclobenzaprine 10 MG TAB PO PRN (11:10)
--- NOTE | 2020-03-03 11:14 | PDOC.HOSPP ---
- Subjective Encounter Date: 03/03/20 Encounter Time: 10:00 Subjective: no elpidio bleeding from rectum or melena no sob now or chest pain - Objective Vital Signs & Weight: Vital Signs (12 hours) Temp Pulse Resp BP Pulse Ox 03/03/20 07:00 98.5 F 86 16 129/60 100 Weight Weight 174 lb 9.6 oz Result Diagrams: 03/03/20 01:45 03/03/20 01:45 Hospitalist ROS - Medication Medications: Active Medications Generic Name Dose Route Start Last Admin Trade Name Freq PRN Reason Stop Dose Admin Aspirin 81 mg 03/03/20 08:00 03/03/20 09:16 Aspirin Chewable PO 81 mg QAM-WM SHANNON Administration Carvedilol 6.25 mg 03/03/20 08:00 03/03/20 09:16 Coreg PO 6.25 mg BID-WM SHANNON Administration Furosemide 40 mg 03/03/20 06:00 03/03/20 06:05 Lasix SLOW IVP 03/03/20 14:01 40 mg 0600,1400 SHANNON Administration Gabapentin 300 mg 03/03/20 09:00 03/03/20 09:16 Neurontin PO 300 mg BID SHANNON Administration Pantoprazole Sodium 40 mg 03/03/20 09:00 03/03/20 09:16 Protonix IVP 03/03/20 21:01 40 mg Q12HR SHANNON Administration - Exam General Appearance: awake alert Eye: PERRL, anicteric sclera ENT: no oropharyngeal lesions, moist mucosa Neck: supple, no JVD Heart: RRR, no murmur Respiratory: no wheezes, no ronchi, rales Gastrointestinal: soft, non-tender, non-distended, normal bowel sounds, no guarding, no rigidity Extremities: no cyanosis, no edema Neurological: cranial nerve grossly intact, no focal deficits Psychiatric: normal affect, A&O x 3 Hosp A/P (1) Acute exacerbation of CHF (congestive heart failure) Code(s): I50.9 - HEART FAILURE, UNSPECIFIED Status: Acute Qualifiers: Heart failure type: combined systolic and diastolic Qualified Code(s): I50.43 - Acute on chronic combined systolic (congestive) and diastolic ( congestive) heart failure (2) CAD (coronary artery disease) Code(s): I25.10 - ATHSCL HEART DISEASE OF [place] CORONARY ARTERY W/O ANG PCTRS Status: Chronic Qualifiers: Coronary Disease-Associated Artery/Lesion type: [place] artery [place] vs. transplanted heart: [place] heart Associated angina: without angina Qualified Code(s): I25.10 - Atherosclerotic heart disease of [place] coronary artery without angina pectoris (3) Chronic obstructive lung disease Status: Chronic Qualifiers: COPD type: chronic bronchitis (4) Diabetes type 2, controlled Code(s): E11.9 - TYPE 2 DIABETES MELLITUS WITHOUT COMPLICATIONS Status: Chronic Qualifiers: Diabetes mellitus emt intermediate insulin use: without shelter use (5) Dyslipidemia Code(s): E78.5 - HYPERLIPIDEMIA, UNSPECIFIED Status: Chronic (6) Hypertension Code(s): I10 - ESSENTIAL (PRIMARY) HYPERTENSION Status: Chronic Qualifiers: (7) Macrocytic anemia Code(s): D53.9 - NUTRITIONAL ANEMIA, UNSPECIFIED Status: Chronic (8) Obesity (BMI 30.0-34.9) Code(s): E66.9 - OBESITY, UNSPECIFIED Status: Chronic (9) Stenosis, spinal, lumbar Code(s): M48.06 - SPINAL STENOSIS, LUMBAR REGION * DO NOT USE * Status: Chronic - Plan likely has chronic blood loss anemia, await GI opinion last colonoscopy was >10yrs back, no recent egd per patient had drug eluting stent to mid LAD on 12/2018, its been more than a year now might require egd creatinine around 1.9, stop iv lasix after 2 more doses await covid 19 results, GI consult can wait till she is negative, if needed will transfuse till then, no active bleeding now last echo showed ef of 40%, mod lvh and rvsp of 40 hemostable to ambulate as tolerated no exposure to covid 19, her daughter lives with her continue protonix, asp, coreg, lipitor. Hold entresto until renal function returns to her baseline.
--- NOTE | 2020-03-03 12:07 | EKG ---
Test Reason : Blood Pressure : / mmHG Vent. Rate : 110 BPM Atrial Rate : 110 BPM P-R Int : 116 ms QRS Dur : 142 ms QT Int : 388 ms P-R-T Axes : 061 024 036 degrees QTc Int : 525 ms Electronic ventricular pacemaker No STEMI Confirmed by ELIZABET COVINGTON M.D. ([id number]), news editor NNEKA MALDONADO ([id number]) on 03/03/2020 12:07:12 PM Referred By: Confirmed By:ELIZABET COVINGTON M.D.
[2020-03-03 12:09] LABS: SARS-CoV-2 MS2 Positive; SARS-CoV-2 N Gene Negative; SARS-CoV-2 S Gene Negative; SARS-CoV-2 orf1ab Negative
[2020-03-03] MEDS ORDERED: GoLYTELY 4,000 ml Bottle PO SCH (14:45)
--- NOTE | 2020-03-03 16:39 | CON ---
DATE OF CONSULTATION: 03/03/2020 REASON FOR CONSULTATION: Recurrent anemia, possible GI bleeding. CONSULTING PROVIDER: Riki Sanchez MD HISTORY OF PRESENT ILLNESS: The patient is an 84-year-old female with past medical history of coronary artery disease, congestive heart failure, chronic kidney disease stage 3, diabetes, hypertension, and recurrent urinary tract infections, who initially presented to the hospital with increased shortness of breath. She states that she has been having progressively worsening shortness of breath over the last 2-3 weeks, but significantly worsened over the last 24 hours, prompting the admission. With this increased shortness of breath that was present at both rest and at exertion, is accompanied by increased fatigue and somnolence. With these presenting symptoms and with her history of congestive heart failure, she was ultimately brought to the [facility] ER for further evaluation. While in the ER, she was noted to have a decreased hemoglobin and hematocrit when compared to her baseline and ultimately admitted to the hospital for COVID rule out and evaluation of her anemia. Upon questioning the patient, she states that she had been on iron supplements over the last year due to chronic anemia that has been present "since I was a kid." However she stopped taking her iron supplements approximately 1 month ago secondary to increased constipation experience while taking this medication. While taking iron supplements, she did complain of infrequent black solid stools that required increased straining in order to facilitate defecation. Currently, she is having approximately 1 solid bowel movement every 2-3 days with normal coloration. She denies any episodes of overt hematemesis, melena, or hematochezia. She also states that her last EGD was approximately 8 years ago, that was performed secondary to acid reflux with normal findings. She also had a colonoscopy performed at the same time again with normal findings. Currently, she denies any nausea, vomiting, fevers, chills, hematemesis, melena, hematochezia, dysphagia, odynophagia, abdominal pain, or weight loss. Of note, the patient underwent both EGD and colonoscopy on 01/31/2010 via my partner, Dr. Chapman. During the upper endoscopy, she had a finding of a hiatal hernia as well as mild antritis with biopsies at that time showing unremarkable antral type mucosa with no evidence of Helicobacter pylori. She also underwent a colonoscopy on 01/31/2010, which showed a sessile polyp within the ascending colon, that appears to be measured 3 to 4 mm in size, with pathology showing the presence of a tubular adenoma. Diverticula were seen in the descending colon as well as hypertrophic folds in the sigmoid, causing mild stricturing of the sigmoid colon. Otherwise, there were no other abnormalities at that time. REVIEW OF SYSTEMS: A 10-category review of systems was obtained with all responses negative except for the pertinent positives as listed in HPI. PAST MEDICAL HISTORY: As per HPI. PAST SURGICAL HISTORY: 1. ORIF of the right humerus. 2. Lumpectomy of the left breast. 3. Parathyroidectomy. 4. Back surgery. 5. Also has pacemaker and defibrillator placement in 05/2019. FAMILY HISTORY: Denies any GI malignancies. SOCIAL HISTORY: Denies any tobacco, alcohol, or illicit drug use. OUTPATIENT MEDICATIONS: Reviewed. ALLERGIES: NO KNOWN DRUG ALLERGIES. PHYSICAL EXAMINATION: VITAL SIGNS: Temperature 97.6, pulse 80, blood pressure 110/56, respiratory rate 17, and saturating 99% on 1.5 L nasal cannula. GENERAL: The patient was lying in bed, in no acute distress. Alert and oriented x4. HEENT: Normocephalic and atraumatic. Neck is supple. No JVD or scleral icterus noted. CARDIOVASCULAR: Regular rate and rhythm with no discernable murmurs, gallops, or rubs, although the heart sounds were somewhat distant. RESPIRATORY: Diminished breath sounds in all lung bustamante, but no discernable wheezes or rales. ABDOMEN: Normoactive bowel sounds. Soft, nontender, and nondistended. EXTREMITIES: No cyanosis, clubbing, or edema. LABORATORY DATA: CBC with a white blood cell count of 10.5, hemoglobin 7, hematocrit 22, platelets 335, and MCV 93 (previously macrocytic), and RDW 15.6. Chemistry with a sodium of 140, potassium 4.1, chloride 105, CO2 of 26, BUN 31, creatinine 1.91, and glucose 172. AST 12, ALT 7, alkaline phosphatase 64, total bilirubin 0.3, and albumin 4.1. BNP 684. Iron 16, ferritin 14, and TIBC 399. IMAGING DATA: CT of the chest was obtained on 03/03/2020, which showed the presence of severe emphysematous changes in both lung bustamante with small bilateral pleural effusions, an indeterminate solid density was seen adjacent to the right major fissure of the right lung as well. ASSESSMENT AND PLAN: The patient is an 84-year-old female with past medical history of coronary artery disease, congestive heart failure, chronic kidney disease stage 3, diabetes, hypertension, recurrent urinary tract infections, and chronic anemia, presenting with continued anemia with iron indices indicative of an iron-deficiency anemia. Iron deficiency anemia: The patient is presenting with initial complaints of increased shortness of breath at both rest and exertion. Upon evaluation of her hemoglobin and hematocrit during this admission, she was noted to have a decreased hemoglobin and hematocrit when compared to her baseline. Upon further questioning the patient, she has had chronic anemia for "all her life" with iron supplementation that had been administered for the last year up until approximately 1 month ago when she discontinued the medication secondary to increased constipation. Now, the patient is presenting with increased iron-deficiency anemia that could be potentially contributing to her shortness of breath, although she does have extensive pulmonary changes from emphysema that could also be contributing to her current clinical status as well. Upon evaluation of prior endoscopies, she did have a hiatal hernia approximately 8 years ago that could potentially generate Bola's ulcers/erosions that could contribute to iron-deficiency anemia. She also had an ascending colon polyp removed approximately 10 years ago as well, which places her at increased risk for colorectal cancer. RECOMMENDATIONS: 1. Would continue to trend her hemoglobin and hematocrit and transfuse as necessary to maintain the hemoglobin and hematocrit of 7/21. 2. Continue to monitor clinically for signs of active GI bleeding. 3. Would place the patient on a clear liquid diet today with plans for n.p.o. at midnight in preparation for EGD and colonoscopy tomorrow. 4. Would administer GoLYTELY prep tonight with 2 L administered at 8 p.m. with a break in between and the remaining 2 L administered at 3 a.m. tomorrow morning. N.p.o. after midnight except for medications will be instituted. 5. Would proceed with both EGD and colonoscopy tomorrow with further recommendations to follow endoscopy. We will continue to follow. Please call with any questions. Job ID: [id number]
--- NOTE | 2020-03-03 17:01 | CON ---
DATE OF CONSULTATION: HISTORY OF PRESENT ILLNESS: Wu Buck is an 84-year-old white female, a patient of Dr. Souza, who came to the emergency room early this morning with increased shortness of breath. 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 She last saw Dr. Souza on 01/06/2020. She had been hypotensive at times and Entresto was discontinued. Carvedilol was reduced to daily, and furosemide was changed to p.r.n. leg edema. She has been doing well until the last day or 2 when she has noticed some increased dyspnea on exertion. She laid down last night to go to sleep, became acutely short of breath, had to sit upright to catch her breath, and came to the emergency room. O2 saturation on admission to the ER was 89%. She has been given 2 doses of furosemide 40 mg intravenously today and states that she feels much better. She has denied any chest discomfort. PAST MEDICAL HISTORY: 1. Nonischemic cardiomyopathy with last ejection fraction in 01/2020 in the office, which was 35% to 40%. 2. Coronary artery disease. 3. Hypertension. 4. Chronic kidney disease. 5. Pericardial cyst. 6. Breast cancer status post lumpectomy, chemotherapy, and radiation. 7. GERD. 8. COPD. 9. Hypercholesterolemia. OPERATIONS: 1. ICD placement. 2. Stents placed in the distal LAD in 12/2018. 3. ORIF of the right humerus. 4. Breast lumpectomy. 5. Hernia repair. 6. Parathyroidectomy. 7. Appendectomy. SOCIAL HISTORY: She smoked in the past, having stopped 10 or 11 years ago. She does not drink. MEDICATIONS: 1. Amlodipine 5 mg daily. 2. Aspirin 81 daily. 3. Carvedilol 3.125 b.i.d. 4. Clopidogrel 75 daily. 5. B12 daily. 6. Flexeril p.r.n. 7. Cymbalta 30 mg daily. 8. Folvite 1 mg daily. 9. Furosemide 40 mg daily p.r.n. 10. Gabapentin 300 t.i.d. 11. Iron 27 mg daily. 12. [place] p.r.n. 13. Protonix 40 mg daily. 14. Simvastatin 10 nightly. ALLERGIES: NONE. REVIEW OF SYSTEMS: A 10-point review of systems is otherwise unremarkable. PHYSICAL EXAMINATION: VITAL SIGNS: Blood pressure 110/56 and pulse of 80. HEENT: PERRL. NECK: Supple. CHEST: Crackles at the bases. CARDIOVASCULAR: S1 and S2 are normal without any S3, S4, or murmurs. Carotid upstrokes normal without bruits. ABDOMEN: Normal bowel sounds without tenderness or organomegaly. ABDOMEN: Obese. EXTREMITIES: No clubbing, cyanosis, or edema. NEUROLOGIC: Grossly intact. SKIN: Warm and dry. LABORATORY DATA: EKG revealed atrial sensing and ventricular pacing. Chest x- ray revealed cardiomegaly with increased interstitial markings. Hemoglobin 7.0, hematocrit 22.0, white count 10,500, and platelets 335,000. Sodium 140, potassium 4.1, chloride 105, carbon dioxide 26, BUN 31, and creatinine 1.91. BNP 684.9. Troponin-I is normal. IMPRESSION: 1. [place] systolic congestive heart failure. Symptomatically, she has improved with diuresis. 2. Nonischemic cardiomyopathy secondary to left bundle-branch block. 3. Status post biventricular implantable cardiac defibrillator placement. 4. Coronary artery disease with stent placed in the distal left anterior descending in 12/2018. 5. Acute anemia with hemoglobin dropping to 7.0. Apparently, there have been problems with this in the past, it is thought to be due to gastrointestinal blood loss from the combination of aspirin and Plavix, although not sure she has been totally evaluated for this. 6. Hypertension. 7. Hypercholesterolemia. 8. Former smoker. 9. Chronic kidney disease. 10. Gastroesophageal reflux disease. 11. History of breast cancer. PLAN: Ms. Buck is being diuresed. She certainly may need to have transfusion performed. In 12/2018, she had a drug-eluting stent placed in the distal LAD. Since she is past 1 year from the time of stent placement and probably is having gastrointestinal blood loss, I would discontinue Plavix at this time and continue with aspirin. Also [facility] will be performed to assess her volume status. Job ID: [id number] [facility]
[2020-03-03] MEDS: Simvastatin 5 MG TAB PO SCH (20:21)
[2020-03-04 04:39] LABS: #Basophils 0.1 thou/uL (0.0-0.2); #Eosinphils 0.3 thou/uL (0.0-0.7); #Lymphocytes 1.9 thou/uL (1.20-3.40); #Monocytes 0.6 thou/uL (0.11-0.59); #Neutrophils 3.7 thou/uL (1.40-6.50); %Basophils 1.1 % (0.0-1.0); %Eosinophils 4.2 % (0.0-10.0); %Lymphocytes 28.9 % (21.0-51.0); %Monocytes 9.1 % (0.0-10.0); %Neutrophils 56.7 % (42.0-75.0); Mean Corpuscular HGB CONC 31.2 g/dL (32.0-36.0); Mean Corpuscular Hemoglobin 28.6 pg (27.0-31.0); Mean Corpuscular Volume 91.5 fL (78.0-98.0); Mean Platelet Volume 7.9 fL (7.4-10.4); Platelet Count 285 thou/uL (130-400); RBC Distribution Width 15.5 % (11.5-14.5); White Blood Cell (WBC) Count 6.5 thou/uL (4.8-10.8)
[2020-03-04 05:00] LABS: Anion Gap 13 mmol/L (10-20); BUN (Urea Nitrogen) 25 mg/dL (9.8-20.1); Calc. Creatinine Clearance 28 mL/min (70-130); Calcium 8.5 mg/dL (7.8-10.44); Carbon Dioxide 31 mmol/L (23-31); Chloride 101 mmol/L (98-107); Estimated GFR-MDRD 25; Glucose 106 mg/dL (83-110); Potassium 3.3 mmol/L (3.5-5.1); Sodium 142 mmol/L (136-145)
[2020-03-04] MEDS ORDERED: Promethazine HCl 25 MG/ML VIAL SLOW IVP PRN (10:42)
[2020-03-04] MEDS ORDERED: Ondansetron HCl/PF 4 MG/2 ML Vial IVP PRN (10:42)
[2020-03-04] MEDS ORDERED: Promethazine HCl 25 MG/ML VIAL IM PRN (10:42)
[2020-03-04] MEDS ORDERED: PROPOFOL 200 MG/20 ML VIAL ONE (11:32)
[2020-03-04] MEDS ORDERED: PHENYLEPHRINE-NS 100 MCG/ML 10 ML SYRINGE ONE (11:32)
[2020-03-04] MEDS ORDERED: Lidocaine 1% PF 5 ML VIAL ONE (11:32)
--- NOTE | 2020-03-04 11:42 | PDOC.HOSPP ---
- Subjective Encounter Date: 03/04/20 Encounter Time: 10:15 Subjective: no elpidio bleeding or dizziness sob has resolved she finished golytely prep overnight no chest pain or palp - Objective Vital Signs & Weight: Vital Signs (12 hours) Temp Pulse Resp BP Pulse Ox 03/04/20 07:02 97.7 F 96 18 118/56 L 94 L 03/04/20 03:39 98.0 F 91 16 120/60 93 L 03/03/20 23:50 97 16 141/61 H 99 Weight Weight 174 lb 9.6 oz I&O: 03/03/20 03/04/20 03/05/20 06:59 06:59 06:59 Intake Total 1700 Output Total 3300 600 Balance -1600 -600 Result Diagrams: 03/04/20 04:14 03/04/20 04:14 Additional Labs: Accuchecks 03/03/20 17:01 POC Glucose 137 H Hospitalist ROS - Medication Medications: Active Medications Generic Name Dose Route Start Last Admin Trade Name Freq PRN Reason Stop Dose Admin Aspirin 81 mg 03/03/20 08:00 03/03/20 09:16 Aspirin Chewable PO 81 mg QAM-WM SHANNON Administration Carvedilol 6.25 mg 03/03/20 08:00 03/03/20 17:20 Coreg PO 6.25 mg BID-WM SHANNON Administration Fentanyl 12 mcg 03/03/20 12:00 03/03/20 13:13 Duragesic TD Not Given Q3D SHANNON Gabapentin 300 mg 03/03/20 09:00 03/03/20 20:21 Neurontin PO 300 mg BID SHANNON Administration Simvastatin 10 mg 03/03/20 21:00 03/03/20 20:21 Zocor PO 10 mg HS SHANNON Administration - Exam General Appearance: NAD, awake alert Eye: PERRL, anicteric sclera ENT: no oropharyngeal lesions, moist mucosa Neck: supple, no JVD Heart: RRR, no murmur Respiratory: no wheezes, no rales Gastrointestinal: soft, non-tender, non-distended, normal bowel sounds Extremities: no cyanosis, no edema Neurological: cranial nerve grossly intact, no focal deficits Psychiatric: normal affect, A&O x 3 Hosp A/P (1) Acute exacerbation of CHF (congestive heart failure) Code(s): I50.9 - HEART FAILURE, UNSPECIFIED Status: Acute Qualifiers: Heart failure type: combined systolic and diastolic Qualified Code(s): I50.43 - Acute on chronic combined systolic (congestive) and diastolic ( congestive) heart failure (2) CAD (coronary artery disease) Code(s): I25.10 - ATHSCL HEART DISEASE OF [place] CORONARY ARTERY W/O ANG PCTRS Status: Chronic Qualifiers: Coronary Disease-Associated Artery/Lesion type: [place] artery [place] vs. transplanted heart: [place] heart Associated angina: without angina Qualified Code(s): I25.10 - Atherosclerotic heart disease of [place] coronary artery without angina pectoris (3) Chronic obstructive lung disease Status: Chronic Qualifiers: COPD type: chronic bronchitis (4) Diabetes type 2, controlled Code(s): E11.9 - TYPE 2 DIABETES MELLITUS WITHOUT COMPLICATIONS Status: Chronic Qualifiers: Diabetes mellitus continuous churn buttermaker insulin use: without continuous churn buttermaker use (5) Dyslipidemia Code(s): E78.5 - HYPERLIPIDEMIA, UNSPECIFIED Status: Chronic (6) Hypertension Code(s): I10 - ESSENTIAL (PRIMARY) HYPERTENSION Status: Chronic Qualifiers: (7) Macrocytic anemia Code(s): D53.9 - NUTRITIONAL ANEMIA, UNSPECIFIED Status: Chronic (8) Obesity (BMI 30.0-34.9) Code(s): E66.9 - OBESITY, UNSPECIFIED Status: Chronic (9) Stenosis, spinal, lumbar Code(s): M48.06 - SPINAL STENOSIS, LUMBAR REGION * DO NOT USE * Status: Chronic - Plan likely has chronic blood loss anemia, transfuse 1 u prbc, Hb this am is 6g was around 7g yesterday last colonoscopy was >10yrs back, no recent egd per patient had drug eluting stent to mid LAD on 12/2018, its been more than a year now for egd and colonoscopy today creatinine around 1.9 covid 19 results are -ve last echo showed ef of 40%, mod lvh and rvsp of 40, current echo ef around 35% hemostable to ambulate as tolerated no exposure to covid 19, her daughter lives with her continue protonix, asp, coreg, lipitor. Hold entresto until renal function returns to her baseline. d/w daughter over phone and gave full updates 03/04/2020
[2020-03-04] MEDS: Aspirin Chewable 81 MG TAB PO SCH (12:01)
[2020-03-04] MEDS: Carvedilol 6.25 MG TAB PO SCH ×2 (12:01→17:19)
[2020-03-04] MEDS: Folic Acid 1 MG TAB PO SCH (12:01)
[2020-03-04] MEDS: Cyanocobalamin (Vitamin B-12) 1,000 MCG TAB PO SCH (12:01)
[2020-03-04] MEDS: Gabapentin 300 MG CAP PO SCH ×2 (12:02→20:31)
--- NOTE | 2020-03-04 15:57 | OP ---
DATE OF PROCEDURE: 03/04/2020 PROCEDURES PERFORMED: 1. Esophagogastroduodenoscopy with biopsy. 2. Colonoscopy with polypectomy. INDICATIONS FOR PROCEDURE: Iron-deficiency anemia. DESCRIPTION OF PROCEDURE: After the risks and benefits of the procedure were explained to the patient including risks of bleeding, infection, perforation, reactions to anesthesia, aspiration, and/or pain, informed consent was obtained. The patient was then taken to the endoscopy suite, where she was placed in the left lateral decubitus position followed by introduction of deep sedation via propofol and anesthesia support. Once adequate sedation was achieved, the standard gastroscope was introduced into the mouth with intubation of the esophagus, stomach, and the proximal small intestines with the findings listed below. Upon completion of this portion of the procedure, all equipment was removed from the patient and the bed was rotated 180 degrees in anticipation of the colonoscopy. After a digital rectal examination was performed, the standard colonoscope was introduced into the rectum and advanced to the cecum with unusual difficulty secondary to significant tortuosity of the colon and significant looping of the scope that was not amenable to reduction. The quality of the prep was fair with a moderate amount of retained solid and liquid stools seen throughout the entire colon, although the views were adequate for the evaluation of lesions greater than 5 mm in size. The patient tolerated the procedure well with no immediate perioperative complications. Upon conclusion of the procedure, all equipment was removed from the patient and she was transferred to PACU in satisfactory condition. EGD FINDINGS: Esophagus: Normal-appearing mucosa was seen in the proximal, mid, and distal esophagus. The diaphragmatic pinch was seen at 38 cm while the gastroesophageal junction was well seen at 36 cm, denoting a 2 cm hiatal hernia. There were no associated erosions or ulcerations with the hiatal hernia that may contribute to an iron-deficiency anemia. Otherwise, there was no evidence of erosions, ulcerations, mass lesions, or active/recent bleeding. Stomach: Normal-appearing mucosa was seen in the gastric cardia, fundus, body, greater curvature, antrum, and incisura. There was no evidence of erosions, ulcerations, mass lesions, or active/recent bleeding. A small hiatal hernia was seen on gastric retroflexion. Duodenum: Normal-appearing mucosa was seen in both the duodenal bulb and second portion of the duodenum. There was no evidence of erosions, ulcerations, mass lesions, or active/recent bleeding. Multiple biopsies were then taken from the duodenal bulb and second portion for evaluation of possible celiac sprue. IMPRESSION: 1. 2 cm hiatal hernia without Bola erosions. 2. Otherwise normal upper endoscopy. 3. No etiology for the patient's anemia was seen during this portion of the examination. COLONOSCOPY FINDINGS: Digital rectal exam: Medium to large-sized external hemorrhoids were seen on external examination, but with relatively normal sphincter tone. Colon findings: A moderate amount of retained solid and liquid stool was seen throughout the entire colon, limiting visualization of the colonic mucosa somewhat (around 85% of the colonic mucosa was adequately visualized). Of the mucosa seen, normal-appearing mucosa was seen at the ileocecal valve and appendiceal orifice. However, 2 polyps measuring 4 to 5 mm and 4 mm were seen in the cecum and completely removed with snare cautery polypectomy, they were retrieved and placed in a specimen jar for further evaluation. A 4 mm arteriovenous nonbleeding arteriovenous malformation was seen in the ascending colon, but not intervened upon given the lack of high-risk stigmata of active or recent bleeding. Otherwise normal-appearing mucosa was seen in the distal ascending colon and transverse colon. A 3 to 4 mm polyp was seen in the proximal descending colon and completely removed with snare cautery polypectomy. It was retrieved and placed in a specimen jar for further evaluation. Numerous small and large mouth diverticula were then seen in the descending and sigmoid colon. There was no evidence of active or recent bleeding seen from any of these in this region. There was some mild narrowing of the colonic mucosa within the sigmoid colon, but was not obstructive to the passage of the colonoscope. Normal-appearing mucosa was then seen in the rectum with small internal hemorrhoids seen on rectal retroflexion. IMPRESSION: 1. Two cecal polyps, measuring 4 to 5 mm and 4 mm, were removed with hot snare cautery polypectomy. 2. 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 3. A 3-4 mm descending colon polyp status post snare cautery polypectomy. 4. Axhzalys-yb-bsecjz left-sided diverticulosis without evidence of bleeding. 5. Mild luminal narrowing of the sigmoid colon, most likely secondary to diverticulosis. 6. Small internal and jdryrp-[id number]-aaiog external hemorrhoids. 7. No etiology for the patient's anemia was seen during this examination. RECOMMENDATIONS: 1. Would continue to trend the patient's hemoglobin and hematocrit and transfuse as necessary to maintain the hemoglobin and hematocrit of 7/21. 2. Continue to monitor clinically for signs of active GI bleeding. 3. We will keep the patient on a clear liquid diet for the next 24 hours in case repeat endoscopy or further procedures are necessary to establish the etiology of her anemia. 4. If the patient continues to have a decrease in her hemoglobin and hematocrit, would consider a tagged red cell scan for further localization of possible bleeding source. 5. Would consider a non GI bleeding source as a source for anemia. 6. Would continue to avoid any anticoagulation for the time being. We will continue to follow. Please call with any questions. Job ID: [id number]
--- NOTE | 2020-03-04 19:54 | PDOC.CPN ---
- Subjective Date: 03/04/20 Time: 19:53 Interval history: She feels better after one unit of blood given but still not to baseline. - Review of Systems General: reports: fatigue. denies: fever/chills, weight/appetite/sleep changes , night sweats Respiratory: reports: exercise intolerance. denies: cough, congestion, shortness of breath Cardiovascular: denies: chest pain, palpitation, edema, paroxysmal nocturnal dyspnea, orthopnea Gastrointestinal: denies: nausea, vomiting, diarrhea, constipation, abd pain, GI bleeding Musculoskeletal: denies: pain, tenderness, stiffness, swelling, arthritis/ arthralgias Neurological: denies: numbness, syncope, seizure, weakness - Objective Allergies/Adverse Reactions: Allergies Allergy/AdvReac Type Severity Reaction Status Date / Time No Known Allergies Allergy Verified 03/03/20 11:43 Visit Medications: Current Medications Hydrocodone Bitart/Acetaminophen ([place] 5/325) 1 tab PO Q4H PRN PRN Reason: Moderate Pain (4-6) Aspirin (Aspirin Chewable) 81 mg PO QAM-[facility] Last Admin: 03/04/20 12:01 Dose: Not Given Carvedilol (Coreg) 6.25 mg PO BID-[facility] Last Admin: 03/04/20 17:19 Dose: 6.25 mg Cyanocobalamin (Vitamin B-12) 1,000 mcg PO DAILY [facility] Last Admin: 03/04/20 12:01 Dose: Not Given Cyclobenzaprine HCl (Flexeril) 10 mg PO TIDPRN PRN PRN Reason: Muscle Spasm Fentanyl (Duragesic) 12 mcg TD Q3D [facility] Last Admin: 03/03/20 13:13 Dose: Not Given Folic Acid (Folvite) 1 mg PO DAILY [facility] Last Admin: 03/04/20 12:01 Dose: Not Given Gabapentin (Neurontin) 300 mg PO BID [facility] Last Admin: 03/04/20 12:02 Dose: Not Given Simvastatin (Zocor) [address] [facility] Last Admin: 03/03/20 20:21 Dose: 10 mg Sodium Chloride (Normal Saline Pf) 10 ml FS PRN PRN PRN Reason: RECONSTITUTION Sodium Chloride (Flush - Normal Saline) 10 ml IVF PRN PRN PRN Reason: Saline Flush Vital Signs & Weight: Vital Signs Temp Pulse Pulse Resp BP BP Pulse Ox 03/04/20 15:53 98.1 F 98 16 130/61 93 L 03/04/20 15:23 98.1 F 98 16 130/61 93 L 03/04/20 11:57 97.7 F 92 20 128/63 03/04/20 11:20 97.8 F 93 16 124/61 98 Weight 174 lb 9.6 oz - Physical Exam General: alert & oriented x3, other (3+ pale.) HEENT: mucus membranes moist Neck: supple neck Cardiac: regular rate and rhythm Lungs: clear to auscultation Neuro: grossly intact Abdomen: active bowel sounds Extremities: no edema Skin: clear Musculoskeletal: no pain - Labs Result Diagrams: 03/04/20 04:14 03/04/20 04:14 Troponin/CKMB Troponin I 0.034 ng/mL (< 0.028) H 03/03/20 07:36 - Telemetry Sinus rhythms and dysrhythmias: sinus rhythm - Assessment/Plan Assessment/Plan: 1. Symptomatic anemia 2. Iron defficiency anemia 3. 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 CAD, s/p NICOLE to distal LAD in Dec 2018 5. LBBB 6. Acute on chronic systolic CHF, improved. 7. S/P BiV AICD. PLAN: - Will give one more unit of blood. - Watch overnight. - Would prefer Hgb closer to 10 before discharge.
[2020-03-04] MEDS ORDERED: Melatonin 3 MG TAB PO PRN (21:05)
[2020-03-04] MEDS: Simvastatin 5 MG TAB PO SCH (22:05)
[2020-03-05 02:44] LABS: #Eosinphils 0.3 thou/uL (0.0-0.7); #Monocytes 0.5 thou/uL (0.11-0.59); #Neutrophils 4.2 thou/uL (1.40-6.50); %Basophils 0.6 % (0.0-1.0); %Eosinophils 3.6 % (0.0-10.0); %Lymphocytes 28.5 % (21.0-51.0); %Monocytes 7.6 % (0.0-10.0); %Neutrophils 59.8 % (42.0-75.0); Hemoglobin 8.3 g/dL (12.0-16.0); Mean Corpuscular HGB CONC 32.6 g/dL (32.0-36.0); Mean Corpuscular Hemoglobin 29.4 pg (27.0-31.0); Mean Corpuscular Volume 90.3 fL (78.0-98.0); Mean Platelet Volume 7.7 fL (7.4-10.4); Platelet Count 275 thou/uL (130-400); RBC Distribution Width 15.2 % (11.5-14.5); Red Blood Cell (RBC) Count 2.83 mill/uL (4.20-5.40)
[2020-03-05 03:05] LABS: ALT (SGPT) 7 U/L (8-55); AST (SGOT) 15 U/L (5-34); Albumin 3.6 g/dL (3.4-4.8); Alkaline Phosphatase 59 U/L (40-110); Anion Gap 13 mmol/L (10-20); BUN (Urea Nitrogen) 16 mg/dL (9.8-20.1); Bilirubin, Total 1.5 mg/dL (0.2-1.2); Calc. Creatinine Clearance 32 mL/min (70-130); Calcium 8.9 mg/dL (7.8-10.44); Carbon Dioxide 27 mmol/L (23-31); Chloride 103 mmol/L (98-107); Estimated GFR-MDRD 30; Globulin 2.5 g/dL (2.4-3.5); Glucose 117 mg/dL (83-110); Potassium 3.5 mmol/L (3.5-5.1); Protein, Total 6.1 g/dL (6.0-8.3); Sodium 139 mmol/L (136-145)
[2020-03-05] MEDS ORDERED: Polyethylene Glycol 3350 17 GM Packet PO PRN (09:27)
[2020-03-05] MEDS ORDERED: Polyethylene Glycol 3350 17 GM Packet PO SCH (09:30)
--- NOTE | 2020-03-05 09:30 | PDOC.HOSPP ---
- Subjective Encounter Date: 03/05/20 Encounter Time: 09:30 Subjective: Patient seen and examine for resp failure. SOB beter. No CP. No new complaints. No overnight events - Objective Vital Signs & Weight: Vital Signs (12 hours) Temp Pulse Pulse Resp BP BP Pulse Ox 03/05/20 07:04 98.4 F 88 20 129/64 94 L 03/05/20 03:07 98.6 F 79 16 114/55 L 96 03/04/20 23:53 98.9 F 90 90 16 125/62 125/62 93 L Weight Weight 174 lb 9.6 oz I&O: 03/04/20 03/05/20 03/06/20 06:59 06:59 06:59 Intake Total 1700 1850 Output Total 3300 600 Balance -1600 1250 Result Diagrams: 03/05/20 02:38 03/05/20 02:38 Additional Labs: Accuchecks 03/04/20 03/04/20 17:37 11:27 POC Glucose 153 H 124 H EKG Reviewed by me: Yes (Tele Paced) Hospitalist ROS - Review of Systems Cardiovascular: denies: chest pain, palpitations, orthopnea, paroxysmal noc. dyspnea, edema, light headedness, other Gastrointestinal: denies: nausea, vomiting, abdominal pain, diarrhea, constipation, melena, hematochezia, other - Medication Medications: Active Medications Generic Name Dose Route Start Last Admin Trade Name Freq PRN Reason Stop Dose Admin Hydrocodone Bitart/Acetaminophen 1 tab 03/03/20 04:27 03/04/20 20:32 [place] 5/325 PO 1 tab Q4H PRN Administration Moderate Pain (4-6) Aspirin 81 mg 03/03/20 08:00 03/04/20 12:01 Aspirin Chewable PO Not Given QAM-WM SHANNON Carvedilol 6.25 mg 03/03/20 08:00 03/04/20 17:19 Coreg PO 6.25 mg BID-WM SHANNON Administration Cyanocobalamin 1,000 mcg 03/04/20 09:00 03/04/20 12:01 Vitamin B-12 PO Not Given DAILY SHANNON Cyclobenzaprine HCl 10 mg 03/03/20 11:10 03/04/20 20:31 Flexeril PO 10 mg TIDPRN PRN Administration Muscle Spasm Fentanyl 12 mcg 03/03/20 12:00 03/03/20 13:13 Duragesic TD Not Given Q3D SHANNON Folic Acid 1 mg 03/04/20 09:00 03/04/20 12:01 Folvite PO Not Given DAILY SHANNON Gabapentin 300 mg 03/03/20 09:00 03/04/20 20:31 Neurontin PO 300 mg BID SHANNON Administration Melatonin 3 mg 03/04/20 21:05 03/04/20 22:05 Melatonin PO 3 mg HSPRN PRN Administration Insomnia Simvastatin 10 mg 03/03/20 21:00 03/04/20 22:05 Zocor PO 10 mg HS SHANNON Administration - Exam General Appearance: NAD Heart: RRR, no gallops Respiratory: no wheezes, no ronchi Gastrointestinal: non-tender, non-distended, normal bowel sounds Extremities: no cyanosis, no clubbing Neurological: no new deficit Hosp A/P - Plan DVT proph w/SCDs Acute hypoxic resp failure due to acute on chronic systolic HF Symptomatic anemia s/p EGD and PRBC Type 2 MO - POA CAD s/p AICD Swallow dysfunction CAD DM2 STACI on CKD 3 - POA HTN Chronic pain syndrome PLAN: Wean O2 No ACEI/ARB/Aldactone due to CKD Lasix/Plavix on hold Cont ASA Resume Cymbalta AM labs Cont other meds as above
[2020-03-05] MEDS: Aspirin Chewable 81 MG TAB PO SCH (09:43)
[2020-03-05] MEDS: Carvedilol 6.25 MG TAB PO SCH ×2 (09:43→16:16)
[2020-03-05] MEDS: Folic Acid 1 MG TAB PO SCH (09:43)
[2020-03-05] MEDS: Cyanocobalamin (Vitamin B-12) 1,000 MCG TAB PO SCH (09:43)
[2020-03-05] MEDS: Gabapentin 300 MG CAP PO SCH (09:43)
[2020-03-05 15:31] VITALS: BP 126/60; TEMP 99
--- NOTE | 2020-03-05 17:15 | PDOC.CPN ---
- Subjective Date: 03/05/20 Time: 17:13 Interval history: She is doing much better. Feeling more energy. - Review of Systems General: denies: fever/chills, weight/appetite/sleep changes, night sweats, fatigue Respiratory: denies: cough, congestion, shortness of breath, exercise intolerance Cardiovascular: denies: chest pain, palpitation, edema, paroxysmal nocturnal dyspnea, orthopnea Gastrointestinal: denies: nausea, vomiting, diarrhea, constipation, abd pain, GI bleeding Musculoskeletal: denies: pain, tenderness, stiffness, swelling, arthritis/ arthralgias Neurological: denies: numbness, syncope, seizure, weakness - Objective Allergies/Adverse Reactions: Allergies Allergy/AdvReac Type Severity Reaction Status Date / Time fentanyl AdvReac Intermediate Verified 03/04/20 20:08 Visit Medications: Current Medications Hydrocodone Bitart/Acetaminophen ([place] 5/325) 1 tab PO Q4H PRN PRN Reason: Moderate Pain (4-6) Last Admin: 03/04/20 20:32 Dose: 1 tab Aspirin (Aspirin Chewable) 81 mg PO QAM-[facility] Last Admin: 03/05/20 09:43 Dose: 81 mg Carvedilol (Coreg) 6.25 mg PO BID-[facility] Last Admin: 03/05/20 16:16 Dose: 6.25 mg Cyanocobalamin (Vitamin B-12) 1,000 mcg PO DAILY [facility] Last Admin: 03/05/20 09:43 Dose: 1,000 mcg Cyclobenzaprine HCl (Flexeril) 10 mg PO TIDPRN PRN PRN Reason: Muscle Spasm Last Admin: 03/04/20 20:31 Dose: 10 mg Duloxetine HCl (Cymbalta) 30 mg PO DAILY [facility] Fentanyl (Duragesic) 12 mcg TD Q3D [facility] Last Admin: 03/03/20 13:13 Dose: Not Given Folic Acid (Folvite) 1 mg PO DAILY [facility] Last Admin: 03/05/20 09:43 Dose: 1 mg Gabapentin (Neurontin) 300 mg PO BID [facility] Last Admin: 03/05/20 09:43 Dose: 300 mg Melatonin (Melatonin) 3 mg PO HSPRN PRN PRN Reason: Insomnia Last Admin: 03/04/20 22:05 Dose: 3 mg Polyethylene Glycol (Miralax) 17 gm PO DAILY PRN PRN Reason: Constipation Simvastatin (Zocor) 10 mg PO HS [facility] Last Admin: 03/04/20 22:05 Dose: 10 mg Sodium Chloride (Normal Saline Pf) 10 ml FS PRN PRN PRN Reason: RECONSTITUTION Sodium Chloride (Flush - Normal Saline) 10 ml IVF PRN PRN PRN Reason: Saline Flush Vital Signs & Weight: Vital Signs Temp Pulse Resp BP Pulse Ox 03/05/20 16:16 95 94 L 03/05/20 15:00 99 F 86 20 126/60 92 L 03/05/20 11:33 98.9 F 92 16 130/61 94 L 03/05/20 10:01 94 L 03/05/20 07:04 98.4 F 88 20 129/64 94 L Weight 174 lb 9.6 oz - Physical Exam General: alert & oriented x3 HEENT: mucus membranes moist Neck: supple neck Cardiac: regular rate and rhythm Lungs: clear to auscultation Neuro: grossly intact Abdomen: active bowel sounds Extremities: no edema Skin: clear Musculoskeletal: no pain - Labs Result Diagrams: 03/05/20 02:38 03/05/20 02:38 Troponin/CKMB Troponin I 0.034 ng/mL (< 0.028) H 03/03/20 07:36 - Telemetry Sinus rhythms and dysrhythmias: sinus rhythm - Assessment/Plan Assessment/Plan: 1. Symptomatic anemia 2. Iron defficiency anemia 3. 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 CAD, s/p NICOLE to distal LAD in Dec 2018 5. LBBB 6. Acute on chronic systolic CHF, improved. 7. S/P BiV AICD. PLAN: - Hgb up to 8. - Feeling much better - May discharge home. STOP plavix indefinitely. - Follow up in the office in 2 weeks with CBC.
[2020-03-05] MEDS ORDERED: Senokot S 8.6-50 MG TAB PO SCH (21:00)
--- NOTE | 2020-03-06 07:15 | DIS ---
DATE OF ADMISSION: 03/03/2020 DATE OF DISCHARGE: 03/05/2020 DISCHARGE DISPOSITION: Home. FOLLOWUP: Follow up with primary care physician in 1 week. Follow up with Gastroenterology, Dr. Yeh and Cardiology as directed. CODE STATUS: Do not resuscitate. ALLERGIES: THE PATIENT IS ALLERGIC TO FENTANYL. DISCHARGE MEDICATIONS: Carvedilol 6.25 mg b.i.d. Clopidogrel was discontinued. Amlodipine was also discontinued. All other home medications were left unchanged. The patient was seen and examined on the day of discharge. Denies any new complaints. No chest pain, shortness of breath, or palpitations reported. She feels much better. BRIEF HOSPITAL COURSE: The patient is an 84-year-old female with coronary artery disease, diabetes mellitus type 2, congestive heart failure, and CKD, presented to the hospital on 03 March 2020 with shortness of breath. Her workup was consistent with acute hypoxic respiratory failure secondary to congestive heart failure exacerbation. She showed good improvement with diuretics. She was also found to have significant anemia with a hemoglobin of 7 on admission and 6.0 next day. She received a total of 2 units of PRBCs. Hemoglobin at discharge is 8.3. COVID-19 screen was negative. She has been cleared by Cardiology and Gastroenterology for discharge. INPATIENT PROCEDURES: 1. Echocardiogram showed ejection fraction of 30% to 35% with grade 1 of 3 diastolic dysfunction, mild concentric LVH, moderate tricuspid regurgitation. 2. On 04 Mar 2020, the patient underwent EGD with biopsy and colonoscopy with polypectomy. It showed 2 cm hiatal hernia without Bola erosion. The colonoscopy showed two cecal polyps measuring 4 to 5 and 4 mm, which were removed. There was also 4 mm ascending colon nonbleeding AVM with [id number]-[id number] left-sided diverticulosis without any bleeding. FINAL DIAGNOSES: 1. Acute hypoxic respiratory failure secondary to [id number] systolic heart failure exacerbation, improved. 2. Symptomatic anemia, status post EGD, colonoscopy, and 2 units of PRBC this admission. 3. Type 2 myocardial infarction, present on admission. 4. History of AICD placement. 5. Swallow dysfunction. 6. Coronary artery disease. 7. Diabetes mellitus type 2. 8. Mild acute kidney injury on chronic kidney disease stage 3, improved. 9. Hypertension. 10. Chronic pain syndrome. 11. Obesity with a BMI of 34.1. 12. Hypokalemia, replaced. 13. Left renal pelvis hypodensity on the chest CT. A dedicated renal stone CT is recommended as outpatient. Primary care physician advised to follow. SIGNIFICANT LABORATORY DATA: BNP 684.9. Creatinine on admission 1.91 and at discharge was 1.64. Blood cultures were negative. DIAGNOSTIC TESTS: Chest x-ray on admission was negative for infiltrate. CT scan of the chest showed findings consistent with COPD with some left renal pelvis hypodensity. A dedicated renal stone CT protocol as outpatient is recommended. The patient understands the above plan of care. Job ID: [id number]
[2020-03-06] MEDS ORDERED: DULoxetine 30 MG CAP PO SCH (09:00)
--- NOTE | 2020-03-07 07:30 | PRG ---
DATE OF SERVICE: 03/05/2020 This is a cross coverage for Dr. Danyel Yeh. SUBJECTIVE: This is an 84-year-old female hospitalized with dyspnea, anemia. The patient had no history of overt GI bleeding. No hematochezia. No melena. As per Dr. Yeh's consultation report, the patient had colonoscopy and EGD in January 2020 and was negative. She underwent repeat EGD and colonoscopy by Dr. Danyel Yeh yesterday. The EGD was basically negative. The colonoscopy showed no active bleeding. She did have some diverticulosis and right colon polyp. She underwent polypectomy and done well overnight. No abdominal pain. She remains mildly dyspneic. No chest pain. LABORATORY DATA: From today WBC is 7000, hemoglobin 8.3, platelet count 275, 000. Chem 7 is normal. BUN 16, creatinine 1.64 mg/dL,. PHYSICAL EXAMINATION: GENERAL: She is mildly short of breath. Afebrile. VITAL SIGNS: Pulse 70_, blood pressure is 120/70 CARDIAC: Within normal limits. LUNGS: _few scattered rhonchi. ABDOMEN: Soft non distended , non tender, no oganomegaly noted _. CLINICAL IMPRESSION: Anemia without any overt GI bleeding. She has had two endoscopic studies over the last 2 months .She had right colon AVMS at colonoscopy and was treated.. RECOMMENDATION: 1. Iron supplement. 2. Consider Allergy input. Job ID: [id number] MTDD
== END 2020-03-05 17:30 | disposition home or self-care (01) | DRG 280 ==
LOC: ERS 01:33 → 2SW 03:30 → UNDOADMIN 03:30 → ERHOLD 04:08 → 2SW 04:27 → ERHOLD 04:27 → 2SW 06:51
PROVIDERS: ADMIT Internal Medicine; ATTEND Internal Medicine
PROC: 8E0ZXY6 Isolation (ICD-10-PCS; 2020-03-03)
PROC: 30233N1 Transfusion of Nonautologous Red Blood Cells into Peripheral Vein, Percutaneous Approach (ICD-10-PCS; principal; 2020-03-04)
PROC: 0DBH8ZZ Excision of Cecum, Via Natural or Artificial Opening Endoscopic (ICD-10-PCS; 2020-03-04)
PROC: 0DBM8ZZ Excision of Descending Colon, Via Natural or Artificial Opening Endoscopic (ICD-10-PCS; 2020-03-04)
PROC: 0DB98ZX Excision of Duodenum, Via Natural or Artificial Opening Endoscopic, Diagnostic (ICD-10-PCS; 2020-03-04)
DX: I13.0 Hypertensive heart and chronic kidney disease with heart failure and stage 1 through stage 4 chronic kidney disease, or unspecified chronic kidney disease (principal); J96.01 Acute respiratory failure with hypoxia; I21.A1 Myocardial infarction type 2; I50.23 Acute on chronic systolic (congestive) heart failure; N17.9 Acute kidney failure, unspecified; Z66 Do not resuscitate; I42.8 Other cardiomyopathies; Z20.828 Contact with and (suspected) exposure to other viral communicable diseases; R13.10 Dysphagia, unspecified; I25.10 Atherosclerotic heart disease of native coronary artery without angina pectoris; E11.22 Type 2 diabetes mellitus with diabetic chronic kidney disease; N18.3 Chronic kidney disease, stage 3 (moderate); G89.4 Chronic pain syndrome; E66.9 Obesity, unspecified; E87.6 Hypokalemia; R93.422 Abnormal radiologic findings on diagnostic imaging of left kidney; M48.061 Spinal stenosis, lumbar region without neurogenic claudication; K21.9 Gastro-esophageal reflux disease without esophagitis; E78.00 Pure hypercholesterolemia, unspecified; I44.7 Left bundle-branch block, unspecified; K44.9 Diaphragmatic hernia without obstruction or gangrene; K64.8 Other hemorrhoids; K64.4 Residual hemorrhoidal skin tags; K57.30 Diverticulosis of large intestine without perforation or abscess without bleeding; K55.20 Angiodysplasia of colon without hemorrhage; D50.9 Iron deficiency anemia, unspecified; J43.9 Emphysema, unspecified; Z95.810 Presence of automatic (implantable) cardiac defibrillator; Z95.5 Presence of coronary angioplasty implant and graft; Z68.34 Body mass index [BMI] 34.0-34.9, adult; Z85.3 Personal history of malignant neoplasm of breast; Z87.440 Personal history of urinary (tract) infections; Z90.49 Acquired absence of other specified parts of digestive tract; Z79.82 Long term (current) use of aspirin; Z87.891 Personal history of nicotine dependence; Z79.899 Other long term (current) drug therapy; Z79.02 Long term (current) use of antithrombotics/antiplatelets
CPT/HCPCS: 36415; 36416; 36430; 71045; 71250; 80048; 80053; 82728; 83540; 83550; 83605; 83735; 83880; 84484; 85025; 86850; 86900; 86901; 87040; 87635; 88305; 93005; 93306; 93798; 94760; C9113; J1940; J2001; J2704; P9016; U0003

== ENCOUNTER 2020-05-30 08:16 | Inpatient (IN) | payer MEDICARE, BC ==
[2020-05-30 08:42] LABS: #Eosinphils 0.1 thou/uL (0.0-0.7); #Lymphocytes 1.5 thou/uL (1.20-3.40); #Monocytes 0.7 thou/uL (0.11-0.59); #Neutrophils 9.7 thou/uL (1.40-6.50); %Basophils 0.2 % (0.0-1.0); %Lymphocytes 12.5 % (21.0-51.0); %Neutrophils 80.3 % (42.0-75.0); Hemoglobin 11.7 g/dL (12.0-16.0); Mean Corpuscular HGB CONC 33.4 g/dL (32.0-36.0); Mean Corpuscular Hemoglobin 31.5 pg (27.0-31.0); Mean Corpuscular Volume 94.1 fL (78.0-98.0); Mean Platelet Volume 8.4 fL (7.4-10.4); Platelet Count 232 thou/uL (130-400); RBC Distribution Width 16.3 % (11.5-14.5); Red Blood Cell (RBC) Count 3.73 mill/uL (4.20-5.40)
[2020-05-30 08:49] LABS: INR-International Normal Ratio 0.9; PTT 35.7 sec (22.9-36.1); Prothrombin Time 12.2 sec (12.0-14.7)
[2020-05-30 09:04] LABS: ALT (SGPT) 12 U/L (8-55); AST (SGOT) 14 U/L (5-34); Albumin 3.9 g/dL (3.4-4.8); Alkaline Phosphatase 59 U/L (40-110); Anion Gap 12 mmol/L (10-20); BUN (Urea Nitrogen) 30 mg/dL (9.8-20.1); Bilirubin, Total 0.4 mg/dL (0.2-1.2); CK (CPK) 143 U/L (29-168); Calc. Creatinine Clearance 0 mL/min (70-130); Calcium 8.9 mg/dL (7.8-10.44); Carbon Dioxide 29 mmol/L (23-31); Chloride 102 mmol/L (98-107); Estimated GFR-MDRD 27; Globulin 2.6 g/dL (2.4-3.5); Glucose 166 mg/dL (83-110); Potassium 3.6 mmol/L (3.5-5.1); Protein, Total 6.5 g/dL (6.0-8.3); Sodium 139 mmol/L (136-145)
[2020-05-30] MEDS ORDERED: Ondansetron PF 4 MG/2 ML Vial ONE (09:16)
[2020-05-30] MEDS ORDERED: Glycopyrrolate 0.2 MG/ML 5 ML SYRINGE ONE (09:16)
[2020-05-30] MEDS ORDERED: Lidocaine 1% PF 5 ML VIAL ONE (09:16)
[2020-05-30] MEDS ORDERED: Dexamethasone 20 MG/5 ML VIAL ONE (09:16)
[2020-05-30] MEDS ORDERED: Rocuronium Bromide 10 MG/ML (10ML VIAL) ONE (09:16)
[2020-05-30] MEDS ORDERED: PHENYLEPHRINE-NS 100 MCG/ML 10 ML SYRINGE ONE (09:16)
[2020-05-30] MEDS ORDERED: PROPOFOL 200 MG/20 ML VIAL ONE (09:16)
--- NOTE | 2020-05-30 09:22 | RAD ---
Radiograph left femur 2 views: 05/30/2020 9:09 AM HISTORY: 84-year-old female with acute traumatic left lower extremity pain after fall FINDINGS: There is an intertrochanteric fracture with varus angulation. There is approximately 25% bone width m edial displacement of distal fragment. No dislocation at the hip. No other femoral fracture distal to the intertrochanteric fracture. Metallic prostheses at medial tibial plateau and medial femoral co ndyle. Bilateral pedicle screws at lumbosacral junction. IMPRESSION: 1.) Acute, traumatic, angulated and displaced intertrochanteric fracture of left proximal femur. 2) status post unicompartmental arthroplasty of left knee. 3) status post posterior lumbar interbody fusion at lumbosacral junction.
--- NOTE | 2020-05-30 09:24 | RAD ---
FRONTAL RADIOGRAPH CHEST: DATE: 05/30/2020. COMPARISON: 03/03/2020. HISTORY: Fall, trauma, pain. FINDINGS: Supine imaging is provided, limiting assessment for a pneumothorax, fluid. Postoperative clips overl ie the left axillary region. There is a right-sided multilead transvenous AICD. Increased linear in terstitial density noted bilaterally. No lobar consolidation or alveolar edema. There are inferior lateral right-sided rib fractures involving the 7th, 8th, and 9th ribs which appea r to be chronic in nature. There are upper lobe emphysematous changes present. IMPRESSION: Chronic findings as detailed above. No acute findings are evident. POS: AH
[2020-05-30] MEDS ORDERED: Fentanyl 100 MCG/2 ML VIAL ONE ×4 (10:21→18:01)
[2020-05-30] MEDS ORDERED: Ketorolac Tromethamine 30 MG/ML VIAL ONE (11:56)
--- NOTE | 2020-05-30 12:45 | CON ---
DATE OF CONSULTATION: This is Dann Bobby PA-C dictating a report for Fox Pickering MD. HISTORY OF PRESENT ILLNESS: We were asked by ER to see the patient. The patient got up this morning as her Lizzie Fariasu was yipping at her. She went to pickler helper the dog food, hit on the bed, turned and fell. She did not hit her head. She landed sitting up, but had significant left hip pain. She was unable to walk. Her daughter is down the carty, but has a noise machine to help her sleep at night and did not hear the fall. Once found, the patient was brought to the hospital and found to have a left hip fracture. The patient is resting on a gurney currently in room 5; as long as we do not move that left lower extremity, she is doing okay, but she does have a fair amount of pain also. No loss of consciousness. Again, no numbness and tingling down that left lower extremity. Only complaint currently is left hip pain, but she has not taken one of her cardiac drugs, so she is little distressed about this. PAST MEDICAL HISTORY: Positive for onset of congestive heart failure few years ago, also has chronic back pain and chronic anemia. PAST SURGICAL HISTORY: Back surgery, ICD placement, stents, right humerus, lumpectomy, hernia repair, parathyroidectomy, and appendectomy. SOCIAL HISTORY: Currently nonsmoker. No alcohol or nicotine products. She is retired and lives with her daughter. MEDICATIONS: 1. Amlodipine. 2. Aspirin. 3. Carvedilol. 4. Plavix, stopped few months ago. 5. B12. 6. Flexeril. 7. Cymbalta. 8. Folvite. 9. Furosemide. 10. Gabapentin. 11. Iron. 12. [place]. 13. Protonix. 14. Simvastatin. ALLERGIES: NONE. FAMILY HISTORY: Family history for this visit is noncontributory. REVIEW OF SYSTEMS: Currently, no chest pain or shortness of breath. She is a little anxious as she has not taken her medications today, but I reassured her she is in the hospital. If she needs something, we can give it to her via IV. Her left hip is what mainly bothering her with pain, but no sensory changes. Rest of review of systems is negative. PHYSICAL EXAMINATION: GENERAL: Well-nourished, well-developed female, alert, pleasant, in no acute distress unless removed that left lower extremity. Speech, clear. Affect, pleasant. Answers questions appropriately. She is alert and oriented x3. HEENT: Head and scalp, atraumatic. Face, symmetric. Tongue, midline. NECK: Supple. Trachea midline. EXTREMITIES: Upper extremities; equal size, shape, symmetry, with normal bulk and tone. Movements are intact as are sensations. Respirations 16. No acute distress. Pelvis, no pain with rocking in the pelvis, but does cause some left hip pain. Lower extremities; also equal size, shape, symmetry with normal bulk and tone, with the exception of left hip lateral pain with palpation and movement. Otherwise, lower extremity sensations are intact as are DP and PT pulses. ASSESSMENT: 1. Multiple health issues. 2. Left hip pain. PLAN: The patient needs her left hip repaired and we talked about an ORIF. She understands the necessity of getting it fixed. She had really good questions and her concerns were addressed as were her questions and she is amenable to go forth with the surgery. We did go over the risks and benefits of surgery, which she understands from past surgeries and had no questions regarding these. Trauma is evaluating the patient. We will see if we are allowed to do the surgery and she is cleared, she does see Dr. Souza for her cardiology. We will await Trauma's clearance. We will get her posted. She has been n.p.o. since last night. Job ID: [id number]
--- NOTE | 2020-05-30 14:25 | HP ---
REQUESTING PHYSICIAN: Dr. Connor. ATTENDING SURGEON: Dr. Kerns. CONSULTATIONS: Orthopedics, Dr. Pickering. HISTORY OF PRESENT ILLNESS: The patient is an 84-year-old woman, who was at home. She was attempting to move her small dog, when she lost her balance and fell landing on her left hip. She denies hitting her head or any loss of consciousness. She also denies any syncopal type episodes. She just reports that she lost her balance and sat down hard on her left side. She was brought by ground EMS to the emergency department, where she underwent evaluation and examination and was noted to have a left intertrochanteric femur fracture. The patient has been n.p.o. since before midnight, and Orthopedics would like to take her to the operating room today. ALLERGIES: FENTANYL. CURRENT MEDICATIONS: 1. Carvedilol. 2. Lasix. 3. Pantoprazole. 4. Simvastatin. 5. Duloxetine. 6. Iron. 7. Esomeprazole. 8. Cyclobenzaprine. 9. Gabapentin. 10. [place]. 11. Baby aspirin. 12. Vitamin D. PAST MEDICAL HISTORY: Coronary artery disease, CHF, hypertension, diabetes, and chronic kidney disease. PAST SURGICAL HISTORY: Back surgery, open reduction and internal fixation of right humerus, lumpectomy on left breast, hernia repair, parathyroidectomy, and AICD placement. SOCIAL HISTORY: The patient lives at home with her . She denies drug, tobacco, or alcohol use. REVIEW OF SYSTEMS: A 10-point review of systems is negative as otherwise stated. PHYSICAL EXAMINATION: VITAL SIGNS: Blood pressure 137/64, heart rate 65 and paced, respirations 17, oxygen saturation is 97% on room air, and temperature is 98.3. GENERAL: The patient is resting comfortably in bed. She is awake, alert, conversant, and appropriate. Her Tim Coma Scale is 15. HEENT: Head is normocephalic and atraumatic. Eyes; extraocular motions intact. PERRLA bilaterally. Ears are atraumatic without discharge. Nose is atraumatic without discharge. Oropharynx is clear. NECK: Nontender. Trachea is midline. No JVD. CHEST: Clear to auscultation with good inspiratory and expiratory effort. HEART: Regular rate and rhythm. ABDOMEN: Soft, flat, nontender with active bowel sounds. PELVIS: Stable with tenderness to palpation to the left hip consistent with her fracture. EXTREMITIES: Neurovascularly intact x4. BACK: By report is atraumatic and nontender. LABORATORY FINDINGS: White blood cell count 12.0, hemoglobin 11.7, hematocrit 35.1, and platelets 232. Sodium 139, potassium 3.6, chloride 102, CO2 of 29, BUN 30, creatinine 1.81, and glucose 166. LFTs are unremarkable. PT 12.2, INR 0.9, PTT 36. RADIOGRAPHIC REPORTS: AP chest x-ray shows no acute findings. Views of the left femur show an acute traumatic, angulated, and displaced intertrochanteric fracture of the left proximal femur. PLAN: Plan will be to admit the patient to the surgical floor. Pain control, pulmonary toilet, gastritis and mechanical VTE prophylaxis. We will continue her n.p.o. status, and she will likely be able to go to day stay from the emergency department to undergo her procedure today. The patient was evaluated in the emergency department by Dr. Kerns, who is in agreement with her going to the operating room today. Job ID: [id number]
--- NOTE | 2020-05-30 17:18 | RAD ---
Exam:Intraoperative fluoroscopy HISTORY: Hip fracture COMPARISON: None FINDINGS: Internal fixation of a left intertrochanteric fracture. Near anatomic alignment. Exposure: 40.3 seconds, 6.8 mGy IMPRESSION: Intraoperative fluoroscopy as above.
[2020-05-30] MEDS ORDERED: Ondansetron ODT 4 MG TAB PO PRN (17:46)
[2020-05-30] MEDS ORDERED: Dextrose 50% Abboject 50 ML SYRINGE SLOW IVP PRN (17:46)
[2020-05-30] MEDS ORDERED: Sodium Chloride 0.9% 1,000 ML IV SCH (17:46)
[2020-05-30] MEDS ORDERED: HumaLOG 300 UNITS/3 ML VIAL SC PRN ×2 (17:46)
[2020-05-30] MEDS ORDERED: Dextrose 5% in Water 1,000 ML IV PRN (17:46)
[2020-05-30] MEDS ORDERED: Ondansetron PF 4 MG/2 ML Vial IVP PRN (17:46)
[2020-05-30] MEDS ORDERED: Morphine 2 MG/ML VIAL SLOW IVP PRN (17:46)
[2020-05-30] MEDS ORDERED: hydrALAZINE 20 MG/ML VIAL SLOW IVP PRN (17:46)
[2020-05-30] MEDS ORDERED: Acetaminophen 500 MG TAB PO SCH (18:00)
--- NOTE | 2020-05-30 20:26 | OP ---
DATE OF PROCEDURE: 05/30/2020 PREOPERATIVE DIAGNOSIS: Left intertrochanteric femur fracture. POSTOPERATIVE DIAGNOSIS: Left intertrochanteric femur fracture. PROCEDURE: TFN, left intertrochanteric femur. ANESTHESIA: General. WELD FITTER: Dann Bobby PA-C IMPLANT: Synthes TFNA 10 x 170 mm with 90 mm hip screw. COMPLICATIONS: None. DRAINS: None. SPECIMEN: None. OUTCOME: Satisfactory. INDICATIONS FOR PROCEDURE: Patient is a pleasant 84-year-old lady, status post ground level fall sustaining a left intertrochanteric femur fracture. After discussion with the patient and her daughter, including risks and benefits, we decided to proceed with intramedullary hip screw stabilization. Informed consent has been obtained. I believe all questions have been answered. DESCRIPTION OF PROCEDURE: Patient was brought to the operating room and a time-out performed followed by induction of general anesthesia. Next, she was positioned supine on the fracture table with the injured extremity held in longitudinal traction and slight internal rotation. Next, a sterile prep and drape was performed of the left lateral thigh. A 2-inch skin incision was then made proximal to the tip of the greater trochanter. After skin was sharply incised, dissection was carried down bluntly such that the tip of the greater trochanter could be palpated. Next, a threaded guidewire was passed from the tip of the greater trochanter down into the proximal intramedullary canal of the femur. Once appropriately positioned, a reamer was passed over this guidewire, opening the proximal femur for nail placement. A 10 x 170 mm nail was then passed through this opening in the femur proximally down into the proximal intramedullary canal. Once delivered to an appropriate depth, a second incision was made distal to the first and the jig for the hip screw was introduced through this incision and brought up against the lateral cortex of the femur. Next, a threaded guidewire was passed from the lateral cortex of the femur up the femoral neck into the femoral head approaching a [id number] position. Measurement was taken off this guidewire for reaming depth as well as hip screw length. The reamer was then introduced over the guidewire reaming to an appropriate depth, followed by insertion of the hip screw. The guidewire was then removed as was the jig for hip screw placement. Next, using the same outrigger arm, a single distal cross-lock screw was introduced through the same distal incision. At the completion of this, it should be noted that the hip screw was locked in place and then backed off a half turn to allow for sliding of the hip screw. The jig was then removed and final AP and lateral C-arm images obtained. The 2 wounds were irrigated with bulb syringe, then closed in layers with 0 Vicryl deep for the proximal incision, followed by 2-0 Vicryl and jorge. The distal incision was closed with 2-0 Vicryl and jorge. Xeroform gauze and tape dressing applied to the lateral thigh and then patient was transferred to recovery room in stable condition. There were no complications. She tolerated the procedure well. Job ID: [id number]
[2020-05-30] MEDS ORDERED: traMADol HCl 50 MG TAB PO PRN (20:52)
[2020-05-30] MEDS ORDERED: Famotidine 20 MG TAB PO SCH (21:00)
[2020-05-30] MEDS: Senokot S 8.6-50 MG TAB PO SCH (21:36)
[2020-05-30] MEDS: Acetaminophen 500 MG TAB PO SCH (21:36)
[2020-05-30] MEDS: Gabapentin 100 MG CAP PO SCH (21:36)
[2020-05-30] MEDS: CEFAZOLIN 2 GM in Premix Bag 1 BAG IVPB SCH (23:34)
--- NOTE | 2020-05-31 00:41 | PDOC.BPN ---
- Brief Progress Note Day of service : 05/30/2020 SUBJECTIVE: Ms Buck is a 84-year-old female, status post ground level fall. L hip fracture. Patient underwent L hip fracture fixation this afternoon. Post op patient has been doing well. Vital stable. Pain is controlled with no PT/Ot yet. She tolerate with her diet. OBJECTIVE : GENERAL: Currently, the patient is lying in bed, alert and awake. GCS 15. VITAL SIGNS: stable LUNGS: clear bilaterally HEART regular rate and rhyme ABDOMEN: soft non distended bowel sound active EXTREMITIES: post op dressing clean and dry NEUROLOGIC: GCS 15. Neurovascularly intact x4. ASSESSMENT: 1. Status post ground level fall 2. L hip fracture, status post repaired PLAN: Continue pain control Encourage IS Patient will work with PT/OT tomorrow continue DVT prophylaxis, gastritis prophylaxis.
[2020-05-31] MEDS: Acetaminophen 500 MG TAB PO SCH ×4 (03:15→20:21)
[2020-05-31 06:00] LABS: #Lymphocytes 0.7 thou/uL (1.20-3.40); #Monocytes 0.3 thou/uL (0.11-0.59); #Neutrophils 6.9 thou/uL (1.40-6.50); %Basophils 0.3 % (0.0-1.0); %Lymphocytes 8.8 % (21.0-51.0); %Monocytes 4.3 % (0.0-10.0); %Neutrophils 86.7 % (42.0-75.0); Hemoglobin 9.8 g/dL (12.0-16.0); Mean Corpuscular HGB CONC 31.7 g/dL (32.0-36.0); Mean Corpuscular Hemoglobin 30.4 pg (27.0-31.0); Mean Platelet Volume 8.7 fL (7.4-10.4); Platelet Count 204 thou/uL (130-400); RBC Distribution Width 16.4 % (11.5-14.5); Red Blood Cell (RBC) Count 3.21 mill/uL (4.20-5.40)
[2020-05-31 06:14] LABS: Anion Gap 12 mmol/L (10-20); BUN (Urea Nitrogen) 28 mg/dL (9.8-20.1); Calc. Creatinine Clearance 30 mL/min (70-130); Calcium 8.2 mg/dL (7.8-10.44); Carbon Dioxide 27 mmol/L (23-31); Chloride 104 mmol/L (98-107); Estimated GFR-MDRD 27; Glucose 154 mg/dL (83-110); Potassium 4.6 mmol/L (3.5-5.1); Sodium 138 mmol/L (136-145)
[2020-05-31] MEDS: CEFAZOLIN 2 GM in Premix Bag 1 BAG IVPB SCH (06:30)
[2020-05-31] MEDS: Aspirin Chewable 81 MG TAB PO SCH ×2 (08:48→20:22)
[2020-05-31] MEDS: Gabapentin 100 MG CAP PO SCH ×2 (08:48→20:21)
[2020-05-31] MEDS: Polyethylene Glycol 3350 17 GM Packet PO SCH (08:48)
[2020-05-31] MEDS: Senokot S 8.6-50 MG TAB PO SCH ×2 (08:48→20:21)
[2020-05-31] MEDS: Famotidine 20 MG TAB PO SCH (20:21)
[2020-05-31] MEDS ORDERED: Prevnar 13-Val Conj/PF 0.5 ML SYRINGE IM ONE (21:00)
[2020-06-01] MEDS: Cyclobenzaprine 10 MG TAB PO PRN (01:58)
[2020-06-01] MEDS: Acetaminophen 500 MG TAB PO SCH ×4 (02:00→20:31)
[2020-06-01] MEDS ORDERED: traMADol HCl 50 MG TAB PO PRN (08:27)
--- NOTE | 2020-06-01 08:37 | PRG ---
DATE OF SERVICE: 05/31/2020 SUBJECTIVE: Ms. Buck is 84-year-old female status post ground level fall, who underwent a left hip fracture fixation and is postop day 1 currently. The patient is doing well, rates her pain a 4/10. OBJECTIVE: VITAL SIGNS: Temperature 97.4, heart rate 83, respiratory rate 16, O2 99 on 4 L nasal cannula, blood pressure 136/74. GENERAL: Currently, the patient is awake and alert and is A and O x2. HEAD: Normocephalic and atraumatic. HEART: Regular rate and rhythm. LUNGS: Clear to auscultation bilaterally. ABDOMEN: Soft, nondistended. Bowel sounds active. EXTREMITIES: Postop dressing clean and dry. NEUROLOGIC: GCS of 15 and neurovascularly intact x4. LABORATORY DATA: Hemoglobin of 9.8. ASSESSMENT: 1. Status post ground level fall. 2. Left hip fracture status post repair postoperative day 1. PLAN: Continue pain control. Continue to work with PT. Continue aspirin 81 mg p.o. b.i.d. and famotidine 20 mg q.p.m. We will plan to discharge to rehab. Will discontinue Chery today and see how the patient does. This patient was seen and evaluated with Dr. Kerns, and assessment and plan was discussed. Job ID: [id number] MTDD
[2020-06-01] MEDS: Polyethylene Glycol 3350 17 GM Packet PO SCH (08:40)
[2020-06-01] MEDS: traMADol HCl 50 MG TAB PO PRN ×3 (08:41→18:09)
[2020-06-01] MEDS: Gabapentin 100 MG CAP PO SCH ×2 (08:43→20:31)
[2020-06-01] MEDS: Senokot S 8.6-50 MG TAB PO SCH ×2 (08:43→20:31)
[2020-06-01] MEDS: Aspirin Chewable 81 MG TAB PO SCH ×2 (08:43→20:31)
--- NOTE | 2020-06-01 19:05 | PRG ---
DATE OF SERVICE: 06/01/2020 SUBJECTIVE: The patient is currently on the surgical floor. She is status post ground level fall, in which she sustained a left proximal femur fracture. She has undergone operative intervention for the same. She has tolerated the procedure well. She is currently tolerating her diet. Her pain is controlled. She is working with Physical and Occupational Therapy. She is awaiting placement to inpatient rehab. PHYSICAL EXAMINATION: VITAL SIGNS: Temperature is 97.6, heart rate 99, blood pressure 134/79, respirations 18, oxygen saturation 92% on room air. GENERAL: The patient is resting comfortably in bed. She is awake, alert, oriented, and at her baseline of A and O x2. HEENT: Unremarkable. LUNGS: Clear to auscultation bilaterally. HEART: Regular rate and rhythm. ABDOMEN: Soft, flat with active bowel sounds. EXTREMITIES: Neurovascularly intact x4. DIAGNOSTIC STUDIES: There are no labs or radiographs reviewed this morning. ASSESSMENT: 1. Status post ground level fall. 2. Status post open reduction and internal fixation of left intertrochanteric femur fracture. 3. History of coronary artery disease, congestive heart failure, hypertension, diabetes, and chronic kidney disease. Plan will be to continue supportive care. Encourage physical and occupational therapy and await final placement decision. The patient was evaluated this morning with Dr. Kerns during rounds. Job ID: [id number]
[2020-06-01] MEDS: Famotidine 20 MG TAB PO SCH (20:31)
[2020-06-02] MEDS: Acetaminophen 500 MG TAB PO SCH ×4 (04:24→21:02)
[2020-06-02 06:57] LABS: #Eosinphils 0.5 thou/uL (0.0-0.7); #Lymphocytes 1.3 thou/uL (1.20-3.40); #Monocytes 0.6 thou/uL (0.11-0.59); #Neutrophils 6.3 thou/uL (1.40-6.50); %Basophils 0.5 % (0.0-1.0); %Eosinophils 5.5 % (0.0-10.0); %Lymphocytes 14.9 % (21.0-51.0); %Monocytes 6.8 % (0.0-10.0); %Neutrophils 72.3 % (42.0-75.0); Hemoglobin 9.6 g/dL (12.0-16.0); Mean Corpuscular HGB CONC 32.3 g/dL (32.0-36.0); Mean Corpuscular Hemoglobin 31.9 pg (27.0-31.0); Mean Platelet Volume 8.3 fL (7.4-10.4); Platelet Count 187 thou/uL (130-400); RBC Distribution Width 16.5 % (11.5-14.5); Red Blood Cell (RBC) Count 3.01 mill/uL (4.20-5.40); White Blood Cell (WBC) Count 8.7 thou/uL (4.8-10.8)
[2020-06-02 07:14] LABS: Anion Gap 11 mmol/L (10-20); BUN (Urea Nitrogen) 26 mg/dL (9.8-20.1); Calc. Creatinine Clearance 31 mL/min (70-130); Calcium 8.9 mg/dL (7.8-10.44); Carbon Dioxide 30 mmol/L (23-31); Chloride 102 mmol/L (98-107); Estimated GFR-MDRD 28; Glucose 154 mg/dL (83-110); Magnesium 2.2 mg/dL (1.6-2.6); Phosphorus 3.4 mg/dL (2.3-4.7); Potassium 4.9 mmol/L (3.5-5.1); Sodium 138 mmol/L (136-145)
[2020-06-02] MEDS: Senokot S 8.6-50 MG TAB PO SCH ×2 (08:18→21:03)
[2020-06-02] MEDS: Cholecalciferol 1,000 UNITS (25 MCG) TAB PO SCH (08:18)
[2020-06-02] MEDS: Gabapentin 100 MG CAP PO SCH ×2 (08:22→21:03)
[2020-06-02] MEDS: DULoxetine 30 MG CAP PO SCH (08:22)
[2020-06-02] MEDS: Furosemide 40 MG TAB PO SCH (08:22)
[2020-06-02] MEDS: Aspirin Chewable 81 MG TAB PO SCH (08:22)
[2020-06-02] MEDS: Polyethylene Glycol 3350 17 GM Packet PO SCH (08:22)
[2020-06-02] MEDS: Carvedilol 6.25 MG TAB PO SCH ×2 (08:22→16:25)
[2020-06-02] MEDS ORDERED: Heparin 5,000 UNITS/ML VIAL SC SCH (09:00)
[2020-06-02] MEDS ORDERED: CHOLECALCIFEROL 1000 MCG PO SCH (09:00)
[2020-06-02] MEDS ORDERED: Aspirin 81 mg Enteric Coated Tablet PO SCH ×3 (09:15→21:00)
--- NOTE | 2020-06-02 16:00 | PRG ---
DATE OF SERVICE: 06/02/2020 SUBJECTIVE: The patient is an 84-year-old female, who is status post ground level fall, in which she sustained a left proximal femur fracture. She has gone operative intervention, which was successfully completed. She tolerated the procedure well and is currently tolerating her diet. Her pain is well controlled. She is to continue working with PT and OT. OBJECTIVE: VITAL SIGNS: Temperature 97.8, pulse 105, respiratory rate 18, O2 saturation 96% on 3 L, blood pressure 123/76. GENERAL: The patient is sitting up in a chair. Awake, alert. HEENT: Head; normocephalic, atraumatic. HEART: Regular rate and rhythm. LUNGS: Clear to auscultation bilaterally. ABDOMEN: Soft, nontender with active bowel sounds. EXTREMITIES: Neurovascularly intact x4. LABORATORY DATA: The patient has a creatinine of 1.73 with a GFR of 28. ASSESSMENT: 1. Status post ground level fall. 2. Status post open reduction and internal fixation of left intertrochanteric femur fracture. 3. History of coronary artery disease, congestive heart failure, hypertension, diabetes, and chronic kidney disease. PLAN: Continue supportive care. Encourage to continue physical and occupational therapy. Awaiting placement with [facility]. The patient also has CKD, that warrants change of her DVT prophylaxis from aspirin 81 mg b.i.d. to heparin 5000 b.i.d. We discussed this with the patient and she is in agreement. The patient was seen and evaluated with Dr. Kerns, who agrees with assessment and plan. Job ID: [id number]
[2020-06-02] MEDS ORDERED: Ferrous Sulfate 325 MG TAB PO SCH (21:00)
[2020-06-02] MEDS ORDERED: Simvastatin 10 MG TAB PO SCH (21:00)
[2020-06-02] MEDS ORDERED: Non-Formulary Item 1 EACH (Iron [Iron] 27 MG) PO SCH (21:00)
[2020-06-02] MEDS: Famotidine 20 MG TAB PO SCH (21:03)
[2020-06-02] MEDS: Heparin 5,000 UNITS/ML VIAL SC SCH (21:03)
[2020-06-02] MEDS: traMADol HCl 50 MG TAB PO PRN (21:05)
[2020-06-03] MEDS: Acetaminophen 500 MG TAB PO SCH ×2 (05:54→08:29)
[2020-06-03] MEDS: Polyethylene Glycol 3350 17 GM Packet PO SCH (08:28)
[2020-06-03] MEDS: Senokot S 8.6-50 MG TAB PO SCH (08:28)
[2020-06-03] MEDS: Cholecalciferol 1,000 UNITS (25 MCG) TAB PO SCH (08:28)
[2020-06-03] MEDS: Furosemide 40 MG TAB PO SCH (08:29)
[2020-06-03] MEDS: DULoxetine 30 MG CAP PO SCH (08:29)
[2020-06-03] MEDS: Gabapentin 100 MG CAP PO SCH (08:29)
[2020-06-03] MEDS: Heparin 5,000 UNITS/ML VIAL SC SCH (08:30)
[2020-06-03] MEDS: Carvedilol 6.25 MG TAB PO SCH (08:33)
[2020-06-03] MEDS: traMADol HCl 50 MG TAB PO PRN (08:33)
[2020-06-03] MEDS: Cyclobenzaprine 10 MG TAB PO PRN (08:39)
[2020-06-03] MEDS ORDERED: traMADol HCl 50 MG TAB PO PRN (11:16)
[2020-06-03] MEDS ORDERED: traMADol HCl 50 MG TAB PO SCH (12:00)
--- NOTE | 2020-06-03 13:45 | DIS ---
DATE OF ADMISSION: 05/30/2020 DATE OF DISCHARGE: 06/03/2020 CONSULT: Orthopedic Surgery, Dr. Pickering. PROCEDURES: On 05/30/2020, TFN, left intertrochanteric femur fracture. PRIMARY DIAGNOSES: 1. Mechanical fall. 2. Left intertrochanteric femur fracture, status post repair. SECONDARY DIAGNOSES: Coronary artery disease, congestive heart failure, hypertension, diabetes, chronic kidney disease. DISCHARGE MEDICATIONS: 1. Acetaminophen 1000 mg p.o. q.6 hours. 2. Carvedilol 12.5 mg p.o. b.i.d. 3. Vitamin D3 1000 mg p.o. daily. 4. Flexeril 5 mg p.o. 3 times a day p.r.n. muscle spasms. 5. Cymbalta 30 mg p.o. daily. 6. Lasix 40 mg p.o. daily. 7. Iron 27 mg p.o. at bedtime. 8. Ferrous sulfate 325 mg p.o. at bedtime. 9. Senokot as needed. 10. MiraLAX as needed. 11. Simvastatin 10 mg p.o. at bedtime. 12. Tramadol 50 mg p.o. 1 to 2 tablets q.6 hours p.r.n. pain. 13. Aspirin 81 mg p.o. at bedtime. 14. Gabapentin 300 mg p.o. 3 times a day. 15. Heparin 5000 units subcu b.i.d. for 2 weeks for VTE prophylaxis. 16. Hydrocodone as needed. 17. Zofran ODT 4 mg q.6 hours p.r.n. 18. Protonix 40 mg p.o. daily. No discontinued medications. HISTORY OF PRESENT ILLNESS AND HOSPITAL COURSE: This is an 84-year-old woman who had a mechanical fall at home. The patient was attempting to move her small dog when she lost her balance causing her to fall, landing on her left hip. The patient denied hitting her head or having her losing consciousness. The patient denies feeling weak, dizzy, or short of breath before falling. The patient's pain was well controlled pre and postop. The patient was able to work with Physical Therapy. The patient did have an increased length of stay due to bed availability at inpatient rehab. The patient had no adverse events. On the day of discharge, the patient was examined by Dr. Kerns. The patient had no complaints other than some moderate pain with movement in which her gabapentin was increased. The patient's vital signs were stable and her exam was unremarkable including cardiopulmonary and GI exam. The patient was deemed stable for discharge to inpatient rehab for continued physical and occupational therapy. DISPOSITION: Stable. DISCHARGE INSTRUCTIONS: 1. Location: Inpatient rehab. 2. Diet: Diabetic diet. 3. Activity: Orthopedic limitations. Weightbearing as tolerated. 4. Followup: Follow up with Dr. Pickering in 10 to 14 days. Follow up with primary care physician, Dr. Monisha Wells as needed. 5. No need to follow up with Trauma Services. Call for any questions. Job ID: [id number] [facility]
[2020-06-03 14:39] VITALS: BP 126/78; TEMP 97.6
[2020-06-03] MEDS ORDERED: Gabapentin 100 MG CAP PO SCH (15:00)
== END 2020-06-03 14:46 | DRG 481 ==
LOC: ERS 08:16 → SURG A 13:35
PROVIDERS: ADMIT Surgery; ATTEND Surgery
PROC: 0QS704Z Reposition Left Upper Femur with Internal Fixation Device, Open Approach (ICD-10-PCS; principal; 2020-05-30)
DX: S72.142A Displaced intertrochanteric fracture of left femur, initial encounter for closed fracture (principal); I13.0 Hypertensive heart and chronic kidney disease with heart failure and stage 1 through stage 4 chronic kidney disease, or unspecified chronic kidney disease; I42.9 Cardiomyopathy, unspecified; I25.10 Atherosclerotic heart disease of native coronary artery without angina pectoris; I50.9 Heart failure, unspecified; D63.1 Anemia in chronic kidney disease; E11.22 Type 2 diabetes mellitus with diabetic chronic kidney disease; N18.9 Chronic kidney disease, unspecified; W18.39XA Other fall on same level, initial encounter; Y92.009 Unspecified place in unspecified non-institutional (private) residence as the place of occurrence of the external cause; Z79.4 Long term (current) use of insulin; Z95.0 Presence of cardiac pacemaker; Z87.891 Personal history of nicotine dependence
CPT/HCPCS: 36415; 36416; 71045; 76000; 80048; 80053; 82550; 83605; 83735; 84100; 85025; 85610; 85730; 93005; 94640; C1713; G0390; J0690; J1100; J1644; J1885; J2405; J2704; J3010; J7620

== ENCOUNTER 2021-01-11 11:07 | Outpatient (CLI) | payer MEDICARE, OTHER | END 2021-01-11 11:08 | disposition home or self-care (01) | LOC: BICMAMMO 11:07 | PROVIDERS: ATTEND Family Medicine | DX: Z12.31 Encounter for screening mammogram for malignant neoplasm of breast (principal); Z91.89 Other specified personal risk factors, not elsewhere classified | CPT/HCPCS: 77063; 77067 ==